=== PATIENT | male | born 1950 | race Caucasian/White ===

== ENCOUNTER 2019-06-02 11:36 | Emergency (ER) | payer OTHER ==
--- NOTE | 2019-06-02 12:33 | EDPHYS ---
Physician Documentation [facility] Name: Christian Cintron Age: 68 yrs Sex: Male : 1950 Arrival Date: 06/02/2019 Time: 11:38 Bed 10 Private MD: Wu Rm V ED Physician Elliot Nguyen HPI: 06/02 12:28 This 68 yrs old Male presents to ER via Ambulatory with complaints of Neck kb Problem. 12:28 The patient or guardian complains of pain. The symptoms are located on the right kb posterior aspect of neck. Onset: The symptoms/episode began/occurred 3 day(s) ago. Context: The problem was sustained at home, The neck injury/problem resulted from from unknown cause. Associated signs and symptoms: The patient has no apparent associated signs or symptoms, The patient denies any alcohol use. The patient is not apparently intoxicated. No neurological symptoms were experienced by the patient prior to arrival in the emergency department. The pain radiates to the right arm. Modifying factors: The symptoms are alleviated by nothing. the symptoms are aggravated by movement. Severity of symptoms: At their worst the symptoms were moderate, in the emergency department the symptoms are unchanged. The patient has experienced similar episodes in the past. The patient has not recently seen a physician. Pt reports he has a pinched nerve in neck that started 3 days ago. Reports he has had this multiple times and normally gets injections for it once a year by Dr Chavarria. Last injection was a year ago. Historical: - Allergies: 12:01 No Known Allergies; iw - Home Meds: 12:01 atorvastatin 80 mg oral tab once daily [Active]; iw - PMHx: 12:01 Hyperlipidemia; Hypertension; Diabetes - NIDDM; iw - PSHx: 12:01 Skin CA; iw ROS: 12:26 Constitutional: Negative for fever, chills, and weight loss, ENT: Negative for injury, kb pain, and discharge, Cardiovascular: Negative for chest pain, palpitations, and edema, Respiratory: Negative for shortness of breath, cough, wheezing, and pleuritic chest pain, Abdomen/GI: Negative for abdominal pain, nausea, vomiting, diarrhea, and constipation, Back: Negative for injury and pain, MS/Extremity: Negative for injury and deformity, Skin: Negative for injury, rash, and discoloration, Neuro: Negative for headache, weakness, numbness, tingling, and seizure. 12:26 Neck: Positive for pain with movement, pain at rest, tenderness, of the right posterior aspect of neck. Exam: 12:26 Constitutional: This is a well developed, well nourished patient who is awake, alert, kb and in no acute distress. Head/Face: Normocephalic, atraumatic. ENT: Nares patent. No nasal discharge, no septal abnormalities noted. Tympanic membranes are normal and external auditory canals are clear. Oropharynx with no redness, swelling, or masses, exudates, or evidence of obstruction, uvula midline. Mucous membranes moist. Chest/axilla: Normal chest wall appearance and motion. Nontender with no deformity. No lesions are appreciated. Cardiovascular: Regular rate and rhythm with a normal S1 and S2. No gallops, murmurs, or rubs. Normal PMI, no JVD. No pulse deficits. Respiratory: Lungs have equal breath sounds bilaterally, clear to auscultation and percussion. No rales, rhonchi or wheezes noted. No increased work of breathing, no retractions or nasal flaring. Abdomen/GI: Soft, non-tender, with normal bowel sounds. No distension or tympany. No guarding or rebound. No evidence of tenderness throughout. Back: No spinal tenderness. No costovertebral tenderness. Full range of motion. Skin: Warm, dry with normal turgor. Normal color with no rashes, no lesions, and no evidence of cellulitis. MS/ Extremity: Pulses equal, no cyanosis. Neurovascular intact. Full, normal range of motion. Neuro: Awake and alert, GCS 15, oriented to person, place, time, and situation. Cranial nerves II-XII grossly intact. Motor strength 5/5 in all extremities. Sensory grossly intact. Cerebellar exam normal. Normal gait. 12:26 Neck: External neck: tenderness, that is mild, of the right posterior aspect of neck, C-spine: appears grossly normal, ROM/movement: pain, that is mild, with any movement. Vital Signs: 12:01 BP 162 / 85; Pulse 76; Resp 16; Pulse Ox 94% on R/A; Weight 97.52 kg; Height 6 ft. 0 iw in. (182.88 cm); Pain 10/10; 12:01 Body Mass Index 29.16 (97.52 kg, 182.88 cm) MDM: 12:02 Patient medically screened. kb 12:27 Data reviewed: vital signs, nurses notes. Data interpreted: Pulse oximetry: on room air kb is 94 %. Interpretation: normal. Counseling: I had a detailed discussion with the patient and/or guardian regarding: the historical points, exam findings, and any diagnostic results supporting the discharge/admit diagnosis, the need for outpatient follow up, a family practitioner, to return to the emergency department if symptoms worsen or persist or if there are any questions or concerns that arise at home. Administered Medications: No medications were administered Disposition: 15:44 Co-signature as Attending Physician, Elliot Nguyen MD. rn Disposition: 06/02/19 12:32 Discharged to Home. Impression: Radiculopathy, cervical region. - Condition is Stable. - Discharge Instructions: Cervical Radiculopathy, [id number]. - Prescriptions for Cyclobenzaprine 10 mg Oral Tablet - take 1 tablet by ORAL route every 8 hours As needed; 21 tablet. Diclofenac Sodium 75 mg Oral Tablet, Delayed Release (E.C.) - take 1 tablet by ORAL route 2 times per day As needed; 30 tablet. - Medication Reconciliation Form, Thank You Letter, Antibiotic Education, Prescription Opioid Use form. - Follow up: Emergency Department; When: As needed; Reason: Worsening of condition. Follow up: Wu Rm MD; When: 2 - 3 days; Reason: Recheck today's complaints, Continuance of care, Re-evaluation by your physician. Signatures: Tesha Stark, PEREZ-C AUDIOVISUAL EQUIPMENT OPERATOR-Brienb Mercy De Leon RN RN iw Elliot Nguyen MD MD analysis internship: (The following items were deleted from the chart) 12:01 12:01 Home Meds: valsartan-hydrochlorothiazide 80-12.5 mg Oral tab 1 tab once daily; [facility] 12:31 12:28 Pt reports he has a pinched nerve in neck that started 3 days ago. Reports he has kb had this multiple times and normally gets injections for it once a year by Dr Chavarria.. kb 13:03 12:32 06/02/2019 12:32 Discharged to Home. Impression: Radiculopathy, cervical region. iw Condition is Stable. Forms are Medication Reconciliation Form, Thank You Letter, Antibiotic Education, Prescription Opioid Use. Follow up: Emergency Department; When: As needed; Reason: Worsening of condition. Follow up: Wu Rm; When: 2 - 3 days; Reason: Recheck today's complaints, Continuance of care, Re-evaluation by your physician. kb
--- NOTE | 2019-06-02 12:33 | ER ---
Nurse's Notes [facility] Name: Christian Cintron Age: 68 yrs Sex: Male : 1950 Arrival Date: 06/02/2019 Time: 11:38 Bed 10 Private MD: Wu Rm V Diagnosis: Radiculopathy, cervical region Presentation: 06/02 11:59 Presenting complaint: Patient states: pinched nerve in neck X 3 days, hx of pinched iw nerve, flared up. Transition of care: patient was not received from another setting of care. Onset of symptoms was May 30, 2019. Risk Assessment: Do you want to hurt yourself or someone else? Patient reports no desire to harm self or others. Initial Sepsis Screen: Does the patient meet any 2 criteria? No. Patient's initial sepsis screen is negative. Does the patient have a suspected source of infection? No. Patient's initial sepsis screen is negative. Care prior to arrival: None. 11:59 Method Of Arrival: Ambulatory iw 11:59 Acuity: BEATRIZ 4 iw Historical: - Allergies: 12:01 No Known Allergies; iw - Home Meds: 12:01 atorvastatin 80 mg oral tab once daily [Active]; iw - PMHx: 12:01 Hyperlipidemia; Hypertension; Diabetes - NIDDM; iw - PSHx: 12:01 Skin CA; iw Vital Signs: 12:01 BP 162 / 85; Pulse 76; Resp 16; Pulse Ox 94% on R/A; Weight 97.52 kg; Height 6 ft. 0 iw in. (182.88 cm); Pain 10/10; 12:01 Body Mass Index 29.16 (97.52 kg, 182.88 cm) iw ED Course: 11:38 Patient arrived in ED. mr 11:39 Wu Rm MD is Private Physician. mr 12:00 Triage completed. iw 12:00 Tesha Stark FNP-C is PHCP. kb 12:01 Elliot Nguyen MD is Attending Physician. kb 12:02 Mercy De Leon, SARAH is Primary Nurse. iw 12:02 Arm band placed on. iw 12:32 Wu Rm MD is Referral Physician. kb Administered Medications: No medications were administered Outcome: 12:32 Discharge ordered by . kb 13:03 Patient left the ED. iw Signatures: Tesha Stark, ADRIANNE TODD-Ivon Evans mr Mercy De Leon, RN RN iw Corrections: (The following items were deleted from the chart) 12:01 12:01 Home Meds: valsartan-hydrochlorothiazide 80-12.5 mg Oral tab 1 tab once daily; iw iw
[2019-06-02] MEDS ORDERED: METHYLPREDNISOLONE 125 MG INJ ONE (12:58)
[2019-06-02 13:51] VITALS: BP 162/85; O2SAT 94
== END 2019-06-02 13:03 | disposition home or self-care (01) ==
LOC: ER 11:36
DX: M54.12 Radiculopathy, cervical region (principal); E78.5 Hyperlipidemia, unspecified; Z85.828 Personal history of other malignant neoplasm of skin
CPT/HCPCS: 99281; J2930

== ENCOUNTER 2020-03-21 09:47 | Emergency (ER) | payer OTHER ==
--- OUTSIDE RECORDS SUMMARY | 2020-03-21 10:21 | XMS REPORT | Clinical Summary ---
:1950 Author Organization [facility] [employer] Address [address] [place] [id number] Care Team Providers Name Role Phone Wu Rm MD Primary Care Provider Allergies Not on File Medications Not on file Active Problems Not on file Social History Tobacco Use Types Packs/Day Years Used Date Never Assessed Sex Assigned at Date Recorded Not on file Job Start Date Occupation Industry Not on file Not on file Not on file Travel History Travel Start Travel End No recent travel history available. Last Filed Vital Signs Not on file Plan of Treatment Health Maintenance Due Date Last Done Comments COLONOSCOPY SCREENING 2000 SHINGLES VACCINES (#1) 2000 65+ PNEUMOCOCCAL VACCINE (1 of 2 - PCV13) 2015 INFLUENZA VACCINE 04/20/2020 Results Not on fileafter 03/21/2019 Advance Directives For more information, please contact: [phone] Type Date Recorded Patient Retail Attendant Explanati on Advance Directives, Living Will and Medical Power of Industrial Plant Custodian
--- OUTSIDE RECORDS SUMMARY | 2020-03-21 10:21 | XMS REPORT | Continuity of Care Document ---
:1950 Author Organization [facility] t Address [address] [place] [address] Care Team Providers Name Role Phone Sujey NEWBY Primary Care Physician Payers Payer Name Policy Type Policy Number Effective Date Expiration Date S ource Problems This patient has no known problems. Allergies, Adverse Reactions, Alerts Allergy Allergy Status Severity Reaction(s) Onset Inactive Treating Comm ents Source Name Type Date Date Clinician No Known DA Active U 2020-0 [facility] [place] [facility] No Known DA Active U 2020-0 [facility] [place] [facility] No Known DA Active U 2018-0 [facility] [place] [facility] Social History Social Habit Start Date Stop Date Quantity Comments Source Sex Assigned At Sidney Trujillo Medications This patient has no known medications. Procedures This patient has no known procedures. Plan of Care Planned Activity Planned Date Details Comments Source Future Scheduled 2020-04-20 INFLUENZA VACCINE [facility] 00:00:00 [code = INFLUENZA VACCINE] Future Scheduled 2015 65+ PNEUMOCOCCAL [place] [facility] 00:00:00 VACCINE (1 of 2 - PCV13) [code = 65+ PNEUMOCOCCAL VACCINE (1 of 2 - PCV13)] Future Scheduled 2000 COLONOSCOPY SCREENING [facility] 00:00:00 [code = COLONOSCOPY SCREENING] Future Scheduled 2000 SHINGLES VACCINES (#1) [facility] 00:00:00 [code = SHINGLES VACCINES (#1)] Encounters Start End Encounter Admission Attending Care Care Encounter Source Date/Time Date/Time Type Type Clinicians Facility Department ID 2019-06-11 2019-06-11 Outpatient BL MED [facility] 05:29:00 05:29:00 Results Test Description Test Time Test Comments Results Result [facility] e Comments - XR FLUORO FOR 2019-08-27 Patient Name: SPINE INJ 10:12:00 ADALBERTO COOL Unit No: [id number] EXAMS: CPT CODE: [id number] XR FLUORO FOR SPINE INJ 11849 LUMBAR TRANSFORAMINAL INJECTION REFERRING PHYSICIAN: PREOPERATIVE DIAGNOSIS: Degenerative Lumbar Disc Disease. POSTOPERATIVE DIAGNOSIS: Bilateral lumbar radiculopathy PROCEDURES PERFORMED 1. Fluoroscopically guided needle localization of the bilateral L4, bilateral L5 spinal nerve/nerves with transforaminal epidural steroid injection/injections. 2. Transforaminal epidurogram/epidurogram s at bilateral L4, bilateral L5. FINDINGS: Poor filling all. Concordant provocation bilateral L5 hips, left L4 back. Pain relief-100%. ANTIBIOTIC: Cefazolin ESTIMATED BLOOD LOSS: Minimal ANESTHESIA: (TIVA )Total intravenous anesthetic (patient intolerant to sedatives and hypnotics) COMPLICATIONS: None DETAILS OF PROCEDURE: After obtaining stable vital signs, informed consent and IV access, with no known contraindications to proceeding, the patient was taken to the fluoroscopy suite and placed in a prone position with all extremities padded and appropriate monitors placed. A sterile prep and drape was performed over the lumbosacral spine. Using fluoroscopic visualization at each level the insertion site was marked for a paravertebral approach to the foramen. Using standard technique, a 25 gauge needle was advanced to the base of the pedicle. In AP view, final positioning was obtained outside the 6 on the clock position on the pedicle. Then, 1 ml of Isovue-300 contrast was injected to produce the epidurograms. No paresthesias were elicited with needle insertion or injection and there were no signs of intravascular or intrathecal uptake. Then, with 1 ml of 4% lidocaine and 10 mg of triamcinolone was injected incrementally with frequent negative aspirations. There were no signs of intravascular or intrathecal uptake. Each subsequent level was done using the same technique and medications. The patient's vital signs remained stable. The patient was taken to the PACU in good condition. at 1012 Reported and signed by: Junior Chavarria M.D. [facility] NAME: ADALBERTO COOL [address] [facility] PHYS: Junior Lind MD [place] [address] : 1950 AGE: 68 SEX: M LOC: [facility] PHONE #: [phone] EXAM DATE: 08/27/2019 STATUS: [facility] FAX #: [phone] RAD #: D/C DT PAGE 1 Signed Report (CONTINUED) Patient Name: ADALBERTO COOL Unit No: [id number] EXAMS: CPT CODE: [id number] XR FLUORO FOR SPINE INJ 27187 <Continued> CC: Technologist: Tamiko Brennan(R) Transcribed D/ (1012) [facility] NAME: ADALBERTO COOL [address] [facility] PHYS: Junior Lind MD [place] [address] : 1950 AGE: 68 SEX: M LOC: [facility] PHONE #: [phone] EXAM DATE: 08/27/2019 STATUS: REG [facility] FAX #: [phone] RAD #: D/C DT PAGE 2 Signed Report Patient Name: ADALBERTO COOL Unit No: [id number] EXAMS: CPT CODE: [id number] XR FLUORO FOR SPINE INJ 31396 <Continued> Orig Print D/T: S: 08/27/2019 (1015) [facility] NAME: ADALBERTO COOL [address] [facility] PHYS: Junior Lind MD [place] [address] : 1950 AGE: 68 SEX: M LOC: [facility] PHONE #: [phone] EXAM DATE: 08/27/2019 STATUS: REG [facility] FAX #: [phone] RAD #: D/C DT PAGE 3 Signed Report GLUBED 2019-08-27 09:10:00 Test Item Value Reference Range Interpretation Comme nts GLUBED (test code = GLUBED) 93 mg/dL 60-125 N [id number] 06:51:00 Test Item Value Reference Range Interpretation Comments GLUBED (test code = GLUBED) 113 mg/dL 60-125 N - XR FLUORO FOR SPINE [id number] 10:42:00 Patient Name: ADALBERTO COOL Unit No: [id number] EXAMS: CPT CODE: [id number] XR FLUORO FOR SPINE INJ [id number] CERVICAL TRANSFORAMINAL INJECTION REFERRING PHYSICIAN:PREOPERATIVE DIAGNOSIS: Cervical radiculitis POSTOPERATIVE DIAGNOSIS: Bilateral cervical radiculopathy PROCEDURES PERFORMED: Fluoroscopically guided needle localization of the bilateral C4, bilateral C5 spinal nerves with transforaminal epiduralsteroid injection/injections. 2. Transforaminal epidurogram/epidurograms at bilateral C4, bilateral C5 FINDINGS: Poor filling bilateral C5, bilateral C4. Concordant provocation right C4 neck. Pain relief-100%. Consider bilateral C3-4 and C4-5 facet block ANTIBIOTICS:Cefazolin ESTIMATED BLOOD LOSS: Minimal ANESTHESIA: (TIVA ) Total intravenous anesthetic (patient intolerant to sedatives and hypnotics) COMPLICATIONS: None DETAILS OF PROCEDURE: After obtaining stable vital signs, informed consent and IV access, with no known contraindications to proceeding, the patient was taken to the fluoroscopy suite and placed in a supine position with all ex tremities padded and appropriate monitors placed. A sterile prep and drape was performed over the cervical spine. Using fluoroscopic visualization at each level the insertion site was marked for a paravertebral approach to the foramen. Using standard technique, a 27gauge needle was advanced to the base of the pedicle. In AP view, final positioning was obtained outside the 6 on a clock position on the pedicle. Then, 0.5 ml of Isovue-300 contrast was injected to produce the epidurograms. No paresthesias were elicited with needle insertion or inje ction and there were no signs of intravascular or intrathecal uptake. Then, 0.5 ml of 4% lidocaine was injected as a test dose with no signs of intravascular or intrathecal uptake. Next, 10 mg of Decadron was injected incrementally with frequent negative aspirations.Each subsequent cervical nerve root sleeve was done with the same technique and medications were used.There were no signs of intravascular or intrathecal uptake. The patient's vital signs remained stable. The patient was taken to the PACU in good condition. [facility] NAME: ADALBERTO COOL [address] [facility] PHYS: Junior Lind MD [place] [address] : 1950 AGE: 68 SEX: M LOC: [facility] PHONE #: [phone] EXAM DATE: 08/06/2019 STATUS: [facility] FAX #: [phone] RAD #: D/C DT PAGE 1 Signed Report (CONTINUED) Patient Name: ADALBERTO COOL Unit No: [id number] EXAMS: CPT CODE: [id number] XR FLUORO FOR SPINE INJ 36401 <Continued> [id number] Reported and signed by: Junior Chavarria M.D. CC: Technologist: Tamiko Brennan(R) Transcribed D/ (1042) [facility] NAME: ADALBERTO COOL [address] [facility] PHYS: Junior Lind MD [place] [address] : 1950 AGE: 68 SEX: M LOC: [facility] PHONE #: [phone] EXAM DATE: 08/06/2019 STATUS: [facility] FAX #: [phone] RAD #: D/C DT PAGE 2 Signed Report Patient Name: ADALBERTO COOL Unit No: [id number] EXAMS: CPT CODE: [id number] XR FLUORO FOR SPINE INJ 97445 <Continued> Orig Print D/T: S: 08/06/2019 (1045) [facility] NAME: ADALBERTO COOL [address] [facility] PHYS: Junior Lind MD [place] [address] : 1950 AGE: 68 SEX: M LOC: [facility] PHONE #: [phone] DATE: 08/06/2019 STATUS: REG [place] FAX #: [phone] RAD #: D/C DT PAGE 3 Signed ReportGLUBED 2019-08-06 09:55:00 Test Item Value Reference Range Interpretation Comments GLUBED (test code = GLUBED) 126 mg/dL 60-125 H [id number] 08:53:00 Test Item Value Reference Range Interpretation Comments GLUBED (test code = GLUBED) 134 mg/dL 60-125 H
--- NOTE | 2020-03-21 10:45 | RAD REPORT ---
EXAM DESCRIPTION: CT - [id number] - 03/21/2020 10:26 am CLINICAL HISTORY: right arm pain, head and neck pain COMPARISON: No comparisons TECHNIQUE: Axial 5 mm thick images of the head were obtained. Axial 2 mm thick images of the cervic al spine were obtained with sagittal and coronal reconstruction images generated and reviewed. All CT scans are performed using dose optimization technique as appropriate and may include automated exposure control or mA/KV adjustment according to patient size. FINDINGS: No intracranial hemorrhage, mass, edema or acute intracranial finding. No suspicion for ac gino infarction. No extra-axial fluid collections. Mastoid air cells and paranasal sinuses are clear. No globe or orbit abnormality seen. Cervical body height and alignment are normal. Minimal C5-6 and moderate C6-7 disc space narrowing. N o fracture or acute bony abnormality. Facet joint degenerative changes are present. This is most pron ounced at L3-4 where there is fusion of the facet joints. There may be fusion at the uncovertebral janett int as well. Moderate right-sided and [id number]-[id number] left-sided foraminal stenosis present. Facet j oint degenerative changes are more mild elsewhere in the cervical spine. Central canal detail is inhe rently limited. No paraspinal mass or hematoma. IMPRESSION: Negative CT head examination for acute or significant finding. Cervical spine degenerative change as detailed. No acute finding identified.
--- NOTE | 2020-03-21 11:00 | ER ---
Nurse's Notes [facility] Name: Christian Cintron Age: 69 yrs Sex: Male : 1950 Arrival Date: 03/21/2020 Time: 09:49 Bed 15 Private MD: Wu Rm V Diagnosis: Radiculopathy, cervical region Presentation: 03/21 10:01 Chief complaint: Patient states: right arm pain that began 2 days ago. Pt denies aa5 numbness/tingling to right arm. Denies known injury. 10:01 Coronavirus screen: Client denies travel out of the [place] in the last 14 days. At this aa5 time, the client does not indicate any symptoms associated with coronavirus-19. Ebola Screen: Patient negative for fever greater than or equal to 101.5 degrees Fahrenheit, and additional compatible Ebola Virus Disease symptoms. Initial Sepsis Screen: Does the patient meet any 2 criteria? No. Patient's initial sepsis screen is negative. Does the patient have a suspected source of infection? No. Patient's initial sepsis screen is negative. Risk Assessment: Do you want to hurt yourself or someone else? Patient reports no desire to harm self or others. Onset of symptoms was March 19, 2020. 10:01 Method Of Arrival: Ambulatory aa5 10:01 Acuity: BEATRIZ 3 aa5 Historical: - Allergies: 10:02 No Known Allergies; aa5 - Home Meds: 10:02 Eliquis 5 mg oral tab [Active]; metformin 500 mg Oral tab [Active]; atorvastatin 80 mg aa5 oral tab [Active]; losartan 25 mg oral tab [Active]; - PMHx: 10:02 Diabetes - NIDDM; Hyperlipidemia; Hypertension; Atrial Fib; aa5 - PSHx: 10:02 Skin CA; aa5 - Immunization history:: Adult Immunizations unknown. - Social history:: Smoking status: Patient/guardian denies using tobacco, but has a distant history of tobacco abuse. - Family history:: not pertinent. - Hospitalizations: : No recent hospitalization is reported. Screenin:10 Abuse screen: Denies threats or abuse. Denies injuries from another. Nutritional jr10 screening: No deficits noted. Tuberculosis screening: No symptoms or risk factors identified. Fall Risk None identified. Assessment: 10:10 General: Appears in no apparent distress. Behavior is calm, cooperative, appropriate jr10 for age. Pain: Complains of pain in right bicep and right tricep Pain does not radiate. Pain currently is 5 out of 10 on a pain scale. Quality of pain is described as sharp, Pain began 2-3 days ago. Alleviated by nothing. Aggravated by increased activity. Neuro: No deficits noted. Level of Consciousness is awake, alert, obeys commands, Oriented to person, place, time, situation, Appropriate for age [employer] Jammer are equal bilaterally Moves all extremities. Gait is steady, Speech is normal, Facial symmetry appears normal, Intact Denies weakness blurred vision dizziness, paresthesias numbness headache. Cardiovascular: No deficits noted. Respiratory: No deficits noted. GI: No deficits noted. No signs and/or symptoms were reported involving the gastrointestinal system. : No deficits noted. No signs and/or symptoms were reported regarding the genitourinary system. EENT: No deficits noted. No signs and/or symptoms were reported regarding the EENT system. Derm: No deficits noted. No signs and/or symptoms reported regarding the dermatologic system. Musculoskeletal: No deficits noted. No signs and/or symptoms reported regarding the musculoskeletal system. Vital Signs: 10:01 BP 159 / 93; Pulse 86; Resp 18 S; Temp 98.3(O); Pulse Ox 93% on R/A; Weight 90.72 kg aa5 (R); Height 6 ft. 0 in. (182.88 cm) (R); Pain 9/10; 11:38 BP 149 / 89; Pulse 91; Resp 20; Pulse Ox 95% on R/A; Pain 5/10; jr10 10:01 Body Mass Index 27.12 (90.72 kg, 182.88 cm) aa5 ED Course: 09:49 Patient arrived in ED. ag5 09:49 Wu Rm MD is Private Physician. ag5 09:50 Elliot Nguyen MD is Attending Physician. rn 10:01 Arm band placed on. aa5 10:09 Dinorah Roberts, SARAH is Primary Nurse. jr10 10:10 Patient has correct armband on for positive identification. Bed in low position. Call jr10 light in reach. Pulse ox on. NIBP on. 10:15 Triage completed. aa5 10:26 CT Head C Spine In Process Unspecified. EDMS 10:34 No provider procedures requiring assistance completed. Patient did not have IV access jr10 during this emergency room visit. Administered Medications: 11:14 Drug: Decadron 10 mg Route: IM; Site: left gluteus; jr10 11:37 Follow up: Response: No adverse reaction jr10 11:14 Drug: TORadol 30 mg Route: IM; Site: right gluteus; jr10 11:37 Follow up: Response: No adverse reaction jr10 Outcome: 10:59 Discharge ordered by . rn 11:37 Discharged to home ambulatory. jr10 11:37 Condition: good 11:37 Discharge instructions given to patient, Instructed on discharge instructions, follow up and referral plans. Demonstrated understanding of instructions, follow-up care, medications, Prescriptions given X 3. 11:38 Patient left the ED. jr10 Signatures: Dispatcher [employer] EDMS Elliot Nguyen MD MD rn Calderon, Audri, RN RN [email or web address] Mushtaq Rome Dinorah Merlos RN RN jr10 Corrections: (The following items were deleted from the chart) 10:15 10:01 Acuity: BEATRIZ 4 aa5 aa5
--- NOTE | 2020-03-21 11:00 | EDPHYS ---
Physician Documentation [facility] Name: Christian Cintron Age: 69 yrs Sex: Male : 1950 Arrival Date: 03/21/2020 Time: 09:49 Bed 15 Private MD: Wu Rm V ED Physician Elliot Nguyen HPI: 03/21 10:11 This 69 yrs old Male presents to ER via Unassigned with complaints of Arm rn Pain. 10:11 The patient or guardian complains of pain. The complaints affect the anterior aspect of rn right shoulder and right bicep. Onset: The symptoms/episode began/occurred 2 day(s) ago. Modifying factors: The symptoms are alleviated by heat, remaining still, the symptoms are aggravated by movement. Severity of symptoms: At their worst the symptoms were mild, in the emergency department the symptoms are unchanged. The patient has experienced a previous episode. The patient has not recently seen a physician. Reports right arm pain for 2 days, no injury/fever/weakness, + history of pinched nerve in neck, feels similar but also different. Reports improved with heat to shoulder but has not resolved. No recent increase in activity with that arm. No chest pain/sob/abd pain/vomiting/diaphoresis. . Historical: - Allergies: 10:02 No Known Allergies; aa5 - Home Meds: 10:02 Eliquis 5 mg oral tab [Active]; metformin 500 mg Oral tab [Active]; atorvastatin 80 mg aa5 oral tab [Active]; losartan 25 mg oral tab [Active]; - PMHx: 10:02 Diabetes - NIDDM; Hyperlipidemia; Hypertension; Atrial Fib; aa5 - PSHx: 10:02 Skin CA; aa5 - Immunization history:: Adult Immunizations unknown. - Social history:: Smoking status: Patient/guardian denies using tobacco, but has a distant history of tobacco abuse. - Family history:: not pertinent. - Hospitalizations: : No recent hospitalization is reported. ROS: 10:11 Constitutional: Negative for fever, chills, and weight loss, ENT: Negative for injury, rn pain, and discharge, Neck: Negative for injury, pain, and swelling, Cardiovascular: Negative for chest pain, palpitations, and edema, Respiratory: Negative for shortness of breath, wheezing, and pleuritic chest pain, Abdomen/GI: Negative for abdominal pain, nausea, vomiting, diarrhea, and constipation, Back: Negative for injury and pain, MS/Extremity: Negative for injury and deformity, Skin: Negative for injury, rash, and discoloration, Neuro: Negative for headache, weakness, numbness, tingling, and seizure. Exam: 10:11 Constitutional: This is a well developed, well nourished patient who is awake, alert, rn and in no acute distress. Ambulatory to room. Head/Face: Normocephalic, atraumatic. Neck: Trachea midline, no masses palpated, and no cervical lymphadenopathy. Supple, full range of motion without nuchal rigidity, or vertebral point tenderness. No Meningismus. Cardiovascular: Regular rate and rhythm. No pulse deficits. Respiratory: No increased work of breathing, no retractions or nasal flaring. Abdomen/GI: Soft, non-tender MS/ Extremity: Pulses equal, no cyanosis. Neurovascular intact. Full, normal range of motion. Equal circumference. Neuro: Awake and alert, GCS 15, oriented to person, place, time, and situation. Cranial nerves II-XII grossly intact. Motor strength 5/5 in all extremities. Sensory grossly intact. Cerebellar exam normal. Normal gait. Vital Signs: 10:01 BP 159 / 93; Pulse 86; Resp 18 S; Temp 98.3(O); Pulse Ox 93% on R/A; Weight 90.72 kg aa5 (R); Height 6 ft. 0 in. (182.88 cm) (R); Pain 9/10; 11:38 BP 149 / 89; Pulse 91; Resp 20; Pulse Ox 95% on R/A; Pain 5/10; jr10 10:01 Body Mass Index 27.12 (90.72 kg, 182.88 cm) aa5 MDM: 09:50 Patient medically screened. rn 10:59 Differential diagnosis: tendonitis, radiculopathy, referred pain. Data reviewed: vital rn signs, nurses notes, EKG, radiologic studies, CT scan, and as a result, I will discharge patient. Counseling: I had a detailed discussion with the patient and/or guardian regarding: the historical points, exam findings, and any diagnostic results supporting the discharge/admit diagnosis, radiology results, the need for outpatient follow up, to return to the emergency department if symptoms worsen or persist or if there are any questions or concerns that arise at home. Special discussion: I discussed with the patient/guardian in detail that at this point there is no indication for admission to the hospital. It is understood, however, that if the symptoms persist or worsen the patient needs to return immediately for re-evaluation. 03/21 10:15 Order name: CT Head C Spine; Complete Time: 10:46 rn 03/21 10:11 Order name: EKG; Complete Time: 10:11 rn 03/21 10:11 Order name: EKG - Nurse/Tech; Complete Time: 10:32 rn Administered Medications: 11:14 Drug: Decadron 10 mg Route: IM; Site: left gluteus; jr10 11:37 Follow up: Response: No adverse reaction jr10 11:14 Drug: TORadol 30 mg Route: IM; Site: right gluteus; jr10 11:37 Follow up: Response: No adverse reaction jr10 Disposition: 03/21/20 10:59 Discharged to Home. Impression: Radiculopathy, cervical region. - Condition is Stable. - Discharge Instructions: Cervical Radiculopathy. - Prescriptions for Ultram 50 mg Oral Tablet - take 1 tablet by ORAL route every 6 hours As needed; 15 tablet. Cyclobenzaprine 10 mg Oral Tablet - take 1 tablet by ORAL route every 8 hours As needed; 15 tablet. Medrol (Hossein) 4 mg Oral Tablets, Dose Pack - take 1 tablet by ORAL route as directed - follow package instructions; 1 packet. - Medication Reconciliation Form, Thank You Letter, Antibiotic Education, Prescription Opioid Use form. - Follow up: Private Physician; When: As needed; Reason: Recheck today's complaints, Re-evaluation by your physician. - Problem is new. - Symptoms have improved. Signatures: Dispatcher [employer] EDMS Elliot Nguyen MD MD rn Calderon, Audri, RN RN aa5 Dinorah Roberts RN RN jr10 Corrections: (The following items were deleted from the chart) 10:13 10:11 Constitutional: Negative for fever, chills, and weight loss, ENT: Negative for rn injury, pain, and discharge, Neck: Negative for injury, pain, and swelling, Cardiovascular: Negative for chest pain, palpitations, and edema, Respiratory: Negative for shortness of breath, cough, wheezing, and pleuritic chest pain, Abdomen/GI: Negative for abdominal pain, nausea, vomiting, diarrhea, and constipation, Back: Negative for injury and pain, MS/Extremity: Negative for injury and deformity, Skin: Negative for injury, rash, and discoloration, Neuro: Negative for headache, weakness, numbness, tingling, and seizure, rn 11:38 10:59 03/21/2020 10:59 Discharged to Home. Impression: Radiculopathy, cervical region. jr10 Condition is Stable. Forms are Medication Reconciliation Form, Thank You Letter, Antibiotic Education, Prescription Opioid Use. Follow up: Private Physician; When: As needed; Reason: Recheck today's complaints, Re-evaluation by your physician. Problem is new. Symptoms have improved. rn
[2020-03-21] MEDS ORDERED: KETOROLAC 30 MG/ML INJ ONE (11:12)
[2020-03-21] MEDS ORDERED: dexAMETHasone 10 MG/ML VIAL ONE (11:12)
--- NOTE | 2020-03-22 12:27 | EKG ---
Test Date: 2020-03-21 Test Time: 10:17:36 Design Draftsman: VINH MEASUREMENT RESULTS: Intervals: Rate: 86 SD: 208 QRSD: 130 QT: 398 QTc: 476 [place]: P: 72 SD: 208 QRS: 116 T: 12 INTERPRETIVE STATEMENTS: Sinus rhythm with occasional and consecutive premature ventricular complexes Right bundle branch block Abnormal ECG No previous ECG available for comparison Electronically Signed On 03-22-20 12:23:04 CDT by Ralph Gruber
[2020-03-23 19:15] VITALS: TEMP 98.3
[2020-03-23 19:17] VITALS: BP 149/89; O2SAT 95
== END 2020-03-21 11:38 | disposition home or self-care (01) ==
LOC: ER 09:47
DX: M54.12 Radiculopathy, cervical region (principal); E11.9 Type 2 diabetes mellitus without complications; I10 Essential (primary) hypertension; E78.5 Hyperlipidemia, unspecified; I48.91 Unspecified atrial fibrillation
CPT/HCPCS: 93005; 70450; 72125; 96372; 99284; J1100

== ENCOUNTER 2020-09-29 09:29 | Observation (INO) | payer OTHER ==
--- OUTSIDE RECORDS SUMMARY | 2020-09-29 09:32 | XMS REPORT | Continuity of Care Document ---
:1950 Author Organization [facility] t Address [address] [place] [address] Care Team Providers Name Role Phone Unavailable Unavailable Unavailable Payers Payer Name Policy Type Policy Number Effective Date Expiration Date S ource Problems This patient has no known problems. Allergies, Adverse Reactions, Alerts Allergy Allergy Status Severity Reaction(s) Onset Inactive Treating Comm ents Source Name Type Date Date Clinician No Known DA Active U 2020-0 [facility] [place] [facility] No Known DA Active U 2020-0 [facility] [place] [facility] No Known DA Active U 2020-0 [facility] 1-17 [place] [facility] No Known DA Active U 2020-0 [facility] 1-16 [place] [facility] No Known DA Active U 2018-0 [facility] 6-14 [place] [facility] Medications This patient has no known medications. Procedures This patient has no known procedures. Encounters Start End Encounter Admission Attending Care Care Encounter Source Date/Time Date/Time Type Type Clinicians Facility Department ID 2019-06-11 2019-06-11 Outpatient [facility] 05:29:00 05:29:00 Results Test Description Test Time Test Comments Results Result Comments Source GLUBED 2020-04-25 10:57:00 Test Item Value Reference Range Interpretation Comme nts GLUBED (test code = GLUBED) 126 mg/dL 60-125 H - XR FLUORO FOR SPINE [id number] 09:05:00 Patient Name: ADALBERTO COOL Unit No: [id number] EXAMS: CPT CODE: [id number] XR FLUORO FOR SPINE INJ 21069 CERVICAL TRANSFORAMINAL INJECTION REFERRING PHYSICIAN:PREOPERATIVE DIAGNOSIS: Cervical radiculitis POSTOPERATIVE DIAGNOSIS: Cervical radiculopathy PROCEDURES PERFORMED: Fluoroscopically guided needle localization of the right C7, right C6 spinal nerves with transforaminal epidural steroid injection/injections. 2. Transforaminal epidurogram/epidurograms at right C7, right C6 FINDINGS: Poor filling right C7, right C6. Concordant provocation right C7 arm. Pain relief-100%. ANTIBIOTICS:Cefazolin ESTIMATED BLOOD LOSS: Minimal ANESTHESIA: (TIVA ) Total intravenous anesthetic (patient intolerant to sedatives and hypnotics) COMPLICATIONS: None DETAILS OF PROCEDURE: After obtaining stable vital signs, informed consent and IV access, with no known contraindications to proceeding, the patient was taken to the fluoroscopy suite and placed in a supine position with all extremities padded and appropriate [...] taken to the PACU in good condition. [facility] NAME: ADALBERTO COOL [address] [facility] HYS: COOPER - DoctorJunior MD [place], [place] [address] : 1950 AGE: 69 SEX: M LOC: BrittanyDarenYURIDIA PHONE #: [phone] EXAM DATE: 04/19/2020 STATUS: [facility] FAX #: [phone] RAD #: D/C DT PAGE 1 Signed Report(CONTINUED) Patient Name: ADALBERTO COOL Unit No: [id number] EXAMS: CPT CODE: [id number] XR FLUORO FOR SPINE INJ 98578 <Continued> at 0905 Reported and signed by: Junior Chavarria M.D. CC: Technologist: Tamiko Brennan(R) Transcribed D/ (904) Shayan [facility] NAME: ADALBERTO COOL [address] [facility] PHYS: Junior Lind MD [place] [address] : 1950 AGE: 69 SEX: M LOC: CEZAR PHONE #: [phone] EXAM DATE: 04/19/2020 STATUS: [facility] FAX #: [phone] RAD #: D/C DT PAGE 2 Signed Report Patient Name: ADALBERTO COOL Unit No: [id number] EXAMS: CPT CODE: [id number] XR FLUORO FOR SPINE INJ [id number] <Continued> Orig Print D/T: S: 04/19/2020 (908) [facility] NAME: ADALBERTO COOL [address] [facility] PHYS: Junior Lind MD [place] [address] : 1950 AGE: 69 SEX: M LOC: CEZAR PHONE #: [phone] EXAM DATE: 04/19/2020 STATUS: [facility] FAX #: [phone] RAD #: D/C DT PAGE 3 Signed [id number] 08:53:00 Test Item Value Reference Range Interpretation Comments GLUBED (test code = GLUBED) 109 mg/dL 60-125 N - XR FLUORO FOR SPINE [id number] 10:12:00 Patient Name: ADALBERTO COOL Unit No: [id number] EXAMS: CPT CODE: [id number] XR FLUORO FOR SPINE INJ 28196 LUMBAR TRANSFORAMINAL INJECTION REFERRING PHYSICIAN: PREOPERATIVE DIAGNOSIS: Degenerative Lumbar Disc Disease. POSTOPERATIVE DIAGNOSIS: Bilateral lumbar radiculopathy PROCEDURES PERFORMED 1. Fluoroscopically guided needlelocalization of the bilateral L4, bilateral L5 spinal nerve/nerves with transforaminal epidural steroid injection/injections. 2. Transforaminal epidurogram/epidurograms at bilateral L4, bilateral L5. FINDINGS: Poor filling all. Concordant provocation bilateral L5 hips, left L4 back. Pain relief-100%. ANTIBIOTIC: Cefazolin ESTIMATED BLOOD LOSS: Minimal ANESTHESIA: (TIVA )Total intravenous anesthetic (patient intolerant to sedatives and hypnotics) COMPLICATIONS: None DETAILS OF PROCEDURE: After obtaining stable vital signs, informed consent and IV access, with noknown contraindications to proceeding, the patient was taken [...] advanced to the base of the pedicle. InAP view, final positioning was obtained outside the [...] done using the same technique and medications. Thepatient's vital signs remained stable. The patient was taken to the PACU in good condition. at 1012 Reported and signed by: Junior Chavarria M.D. [facility] NAME: ADALBERTO COOL [address] [facility] PHYS: DOCUD - DoctorJunior MD [place], [place] [address] : 1950 AGE: 68 SEX: M LOC: CEZAR PHONE #: [phone] EXAM DATE: 08/27/2019 STATUS: [facility] FAX #: [phone] RAD #: D/C DT PAGE 1 Signed Report (CONTINUED) Patient Name: JOANN COOL Unit No: [id number] EXAMS: CPT CODE: [id number] XR FLUORO FOR SPINE INJ 36799 <Continued> CC: Technologist: Tamiko Brennan(R) Transcribed D/ (1012) HermiloD [facility] NAME: ADALBERTO COOL [address] [facility] PHYS: Junior Lind MD [place] [address] : 1950 AGE: 68 SEX: M LOC: CEZAR PHONE #: [phone] EXAM DATE: 08/27/2019 STATUS: [facility] FAX #: [phone] RAD #: D/C DT PAGE 2 Signed Report Patient Name: ADALBERTO COOL Unit No: [id number] EXAMS: CPT CODE: [id number] XR FLUORO FOR SPINE INJ 89425 <Continued> Orig Print D/T: S: 08/27/2019 (101)[facility] NAME: ADALBERTO COOL [address] [facility] PHYS: Junior Lind MD [place] [address] : 1950GE: 68 SEX: M LOC: CEZAR PHONE #: [phone] EXAM DATE: 08/27/2019 STATUS: [facility] FAX #: [phone] RAD #: D/C DT PAGE 3 Signed [id number] 09:10:00 Test Item Value Reference Range Interpretation Comments GLUBED (test code = GLUBED) 93 mg/dL 60-125 N [id number] 06:51:00 Test Item Value Reference Range Interpretation Comments GLUBED (test code = GLUBED) 113 mg/dL 60-125 N - XR FLUORO FOR SPINE [id number] 10:42:00 Patient Name: ADALBERTO COOL Unit No: [id number] EXAMS: CPT CODE: [id number] XR FLUORO FOR SPINE INJ 38716 CERVICAL TRANSFORAMINAL INJECTION REFERRING PHYSICIAN:PREOPERATIVE DIAGNOSIS: Cervical [...] taken to the PACU in good condition. [facility] NAME: ADALBERTO COOL [address] [facility] PHYS: DOCUD - Doctor,Junior Hazel MD [place], [place] [address] : 1950 AGE: 68 SEX: M LOC: CEZAR PHONE #: [phone] EXAM DATE: 08/06/2019 STATUS: [facility] FAX #: [phone] RAD #: D/C DT PAGE 1 Signed Report (CONTINUED) Patient Name: ADALBERTO COOL Unit No: [id number] EXAMS: CPT CODE: [id number] XR FLUORO FOR SPINE INJ 40095 <Continued> [id number] Reported and signed by: Junior Chavarria M.D. CC: Technologist: Tamiko Brennan(R) Transcribed D/ (1046) Shayan [facility] NAME: ADALBERTO COOL [address] [facility] PHYS: Junior Lind MD [place] [address] : 1950 AGE: 68 SEX: M LOC: CEZAR PHONE #: [phone] EXAM DATE: 08/06/2019 STATUS: REG [employer] FAX #: [phone] RAD #: D/C DT PAGE 2 Signed Report Patient Name: ADALBERTO COOL Unit No: [id number] EXAMS: CPT CODE: [id number] XR FLUORO FOR SPINE INJ 29885 <Continued> Orig Print D/T: S: 08/06/2019 (1041) [facility] NAME: ADALBERTO COOL [address] [facility] PHYS: Junior Lind MD [place] [address] : 1950 AGE: 68 SEX: M LOC: ECZAR PHONE #: [phone] DATE: 08/06/2019 STATUS: REG [facility] FAX #: [phone] RAD #: D/C DT PAGE 3 Signed ReportGLUBED 2019-08-06 09:55:00 Test Item Value Reference Range Interpretation Comments GLUBED (test code = GLUBED) 126 mg/dL 60-125 H [id number] 08:53:00 Test Item Value Reference Range Interpretation Comments GLUBED (test code = GLUBED) 134 mg/dL 60-125 H
--- NOTE | 2020-09-29 15:02 | ER ---
Nurse's Notes [facility] Name: Christian Cintron Age: 70 yrs Sex: Male : 1950 Arrival Date: 09/29/2020 Time: :31 Bed Waiting Private MD: Wu Rm V Diagnosis: Chronic obstructive pulmonary disease, unspecified Presentation: 09/29 09:31 Chief complaint: Direct Admit from Dr. Rm for hypoxia, dyspnea, cough, COPD. aa5 09: Coronavirus screen: cough unrelated to allergies, shortness of breath. Ebola Screen: aa5 Patient negative for fever greater than or equal to 101.5 degrees Fahrenheit, and additional compatible Ebola Virus Disease symptoms. Initial Sepsis Screen: Does the patient meet any 2 criteria? No. Patient's initial sepsis screen is negative. Does the patient have a suspected source of infection? No. Patient's initial sepsis screen is negative. Risk Assessment: Do you want to hurt yourself or someone else? Patient reports no desire to harm self or others. Onset of symptoms was September 2020. 09:31 Acuity: BEATRIZ 3 aa5 09:31 Method Of Arrival: Ambulatory aa5 Historical: - Allergies: 09:44 No Known Allergies; aa5 - Home Meds: 09:45 atorvastatin 80 mg Oral tab once daily [Active]; metformin 500 mg Oral tab [Active]; aa5 Eliquis 5 mg Oral tab [Active]; atorvastatin 80 mg Oral tab [Active]; losartan 25 mg Oral tab [Active]; - PMHx: 09:44 Atrial Fib; Diabetes - NIDDM; Hyperlipidemia; Hypertension; aa5 - PSHx: 09:44 Skin CA; aa5 - Immunization history:: Client reports receiving the 2nd dose of the Covid vaccine, Flu vaccine is up to date. - Social history:: Smoking status: Patient denies any tobacco usage or history of. 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 13:30 Reassessment: Joellen Castelan RN states that she will soon assign room assignment for ss patient. Vital Signs: :31 BP 128 / 79; Pulse 84; Resp 20 S; Temp 98.3(O); Pulse Ox 81% on R/A; Weight 90.26 kg aa5 (R); Height 6 ft. 0 in. (182.88 cm) (R); 09:33 Pulse Ox 95% on 2 lpm NC; aa5 09:31 Body Mass Index 26.99 (90.26 kg, 182.88 cm) aa5 ED Course: 09:31 Patient arrived in ED. mr 09:31 Arm band placed on. aa5 09:32 Wu Rm MD is Private Physician. mr 09:39 Jon Rodriges MD is Attending Physician. tw4 09:47 Triage completed. aa5 15:00 Wu Rm MD is Hospitalizing Provider. ss Administered Medications: No medications were administered Outcome: 15:01 Decision to Hospitalize by Provider. ss 15:01 Patient left the ED. ss Signatures: Ivon Roberts LeónDenisse, RN RN aa5 Marlene Carvajal RN RN ss Jon Rodriges MD MD tw4
[2020-09-29] MEDS ORDERED: ALBUTEROL 2.5 MG/3 ML NEB SOL IH PRN (15:16)
[2020-09-29] MEDS ORDERED: GLUCAGON 1 MG/VIAL IM PRN (15:41)
[2020-09-29] MEDS ORDERED: D50W 25 GM/50 ML VIAL IV PRN (15:49)
[2020-09-29] MEDS ORDERED: POLYETHYL GLY 3350 17 GM/DOSE PO PRN (16:00)
[2020-09-29] MEDS ORDERED: LOPERAMIDE HCL 2 MG CAPSULE PO PRN (16:00)
[2020-09-29] MEDS ORDERED: NACHLORIDE 0.45% 1,000 ML IV SCH (16:00)
[2020-09-29] MEDS ORDERED: ONDANSETRON 4 MG (ODT) TAB PO PRN (16:00)
[2020-09-29] MEDS ORDERED: ACETAMINOPHEN 325 MG TABLET PO PRN (16:00)
[2020-09-29] MEDS ORDERED: DIPHENHYDRAMINE 25 MG TAB/CAP PO PRN (16:00)
[2020-09-29] MEDS ORDERED: PNEUMOCOCCAL VACCINE 0.5 ML IMVAC ONE (16:00)
[2020-09-29] MEDS ORDERED: ONDANSETRON 4 MG/2 ML VIAL IV PRN (16:00)
[2020-09-29] MEDS ORDERED: INFLUENZA VACCINE (for 3y+) 0.5 ML DOSE IMVAC ONE (16:00)
[2020-09-29 16:27] VITALS: BMI 27.0
[2020-09-29] MEDS: INSULIN -REGULAR HUMAN 50 UNIT/0.5 ML ML SQ SCH ×2 (16:30→20:54)
[2020-09-29 16:36] LABS: Protime INR 1.61
[2020-09-29] MEDS: AZITHROMYCIN IV 500 MG in NA CHLORIDE 0.9% 250 ML IVPB SCH (17:00)
[2020-09-29 17:25] LABS: Albumin 4.5 g/dL (3.4-5.0); Bilirubin Direct 0.2 mg/dL (0-0.2); Bilirubin Total 0.8 mg/dL (0.2-1.0); C-Reactive Protein 20.3 mg/L (<3.00); Phosphorus 4.1 mg/dL (2.5-4.9); Protein, Total 9.2 g/dL (6.4-8.2); Thyroid Stimulating Hormone 1.15 uIU/mL (0.360-3.740)
[2020-09-29] MEDS: METHYLPREDNISOLONE 40 MG INJ IV SCH (18:00)
[2020-09-29 18:11] LABS: Basophils % 0.4 % (0-1.3); Hematocrit 43.1 % (39.6-49.0); Lymphocytes % 11.7 % (15.3-44.8); MPV 8.4 fL (7.6-11.3); RBC Red Blood Cell Count 4.68 M/uL (4.33-5.43)
[2020-09-29] MEDS: IPRATROPIUM BROM 0.5MG/2.5ML IH SCH (19:10)
[2020-09-29] MEDS: LEVALBUTEROL 1.25 MG/3 ML NEB IH SCH (19:10)
[2020-09-29 19:18] LABS: Potassium 3.9 mmol/L (3.5-5.1)
--- NOTE | 2020-09-29 20:47 | RAD REPORT ---
EXAM DESCRIPTION: CT - Chest Angio - 09/29/2020 8:29 pm CLINICAL HISTORY: Shortness of breath COMPARISON: None. TECHNIQUE: Dynamically enhanced axial 3 mm thick images of the chest were obtained during administra tion of <100> mL Isovue 370 IV contrast. Coronal and oblique reconstruction images were generated and reviewed. Exam utilizes a protocol for optimal evaluation of pulmonary arterial tree. Maximum intensity projections 3D imaging was utilized All CT scans are performed using dose optimization technique as appropriate and may include automated exposure control or mA/KV adjustment according to patient size. FINDINGS: A pulmonary embolus is not seen. A thoracic aortic aneurysm is not noted. A pleural effusion is not seen. A pericardial effusion is not seen. Bulla and blebs are scattered throughout predominantly the upper lobes. Mild bilateral ground-glass o pacities within the lungs Mild mediastinal and hilar lymphadenopathy left IMPRESSION: Negative for a pulmonary embolism. COPD Mild ground-glass opacities within the lungs indicative of an alveolitis Mild mediastinal and hilar lymphadenopathy probably reactive in nature
[2020-09-29] MEDS: APIXABAN 5 MG TABLET PO SCH ×2 (20:53→21:00)
[2020-09-29] MEDS: CEFTRIAXONE/SWI 1gm 1 GM/10 ML SYR IVP SCH (20:54)
[2020-09-30] MEDS: METHYLPREDNISOLONE 40 MG INJ IV SCH ×2 (01:15→06:23)
[2020-09-30] MEDS: LEVALBUTEROL 1.25 MG/3 ML NEB IH SCH ×2 (01:25→07:35)
[2020-09-30] MEDS: IPRATROPIUM BROM 0.5MG/2.5ML IH SCH ×2 (01:25→07:35)
[2020-09-30 03:47] LABS: Urine Appearance CLEAR; Urine Bilirubin NEGATIVE (NEG); Urine Blood 1+ (NEG); Urine Color YELLOW; Urine Glucose NEGATIVE (NEG); Urine Protein NEGATIVE (NEG); Urine Specific Gravity >=1.030 (1.005-1.030); Urine Urobilinogen 0.2 mg/dL (0.2-1.0); Urine pH 5.5 (5.0-7.0)
[2020-09-30 04:20] LABS: Urine Bacteria <20 /HPF (NONE SEEN)
[2020-09-30 06:34] LABS: Absolute Lymphocytes (CBC) 0.5 K/uL (0.7-4.9); Basophils % 0.4 % (0-1.3); Hematocrit 39.7 % (39.6-49.0); Lymphocytes % 6.9 % (15.3-44.8); RBC Red Blood Cell Count 4.33 M/uL (4.33-5.43)
[2020-09-30 06:46] LABS: BUN Blood Urea Nitrogen 14 mg/dL (7-18); Bicarbonate 23 mmol/L (21-32); Glucose Level 126 mg/dL (74-106); Magnesium 2.2 mg/dL (1.8-2.4); Sodium Level 139 mmol/L (136-145)
[2020-09-30] MEDS: INSULIN -REGULAR HUMAN 50 UNIT/0.5 ML ML SQ SCH (07:30)
[2020-09-30 08:01] VITALS: BP 112/69; TEMP 97.9
[2020-09-30] MEDS: APIXABAN 5 MG TABLET PO SCH (08:40)
[2020-09-30] MEDS: AZITHROMYCIN IV 500 MG in NA CHLORIDE 0.9% 250 ML IVPB SCH (08:41)
[2020-09-30] MEDS: CEFTRIAXONE/SWI 1gm 1 GM/10 ML SYR IVP SCH (08:41)
[2020-09-30] MEDS ORDERED: HOME MED 1 EA UNK (Apixaban [Eliquis] 5 MG Tablet) PO SCH (09:00)
[2020-09-30 09:16] VITALS: O2SAT 95
[2020-09-30 09:39] LABS: Blood Morphology Comment NOT SEEN (NOT SEEN); Platelet Estimate ADEQ; White Blood Cell Scan OK (OK)
[2020-09-30] MEDS ORDERED: PNEUMOCOCCAL VACCINE 0.5 ML IMVAC ONE (10:00)
--- NOTE | 2020-09-30 16:44 | P.DS ---
Admission Date: 09/29/20 Discharge Date: 09/30/20 Disposition: ROUTINE DISCHARGE Discharge Condition: FAIR Brief History of Present Illness: ADALBERTO IS DOING GREAT. HE IS STABLE. HE HAS NO MORE DYSPNEA. HE WILL GO ON MEDROL AND Z HOSSEIN WILL FU IN ONE WEEK. Vital Signs/Physical Exam: Temp Pulse Resp BP Pulse Ox 97.9 F 80 24 H 112/69 95 09/30/20 08:00 09/30/20 08:00 09/30/20 08:00 09/30/20 08:00 09/30/20 08:00 Laboratory Data at Discharge: WBC 8.00 K/uL (4.3-10.9) 09/30/20 06:19 Hgb 13.0 g/dL (13.6-17.9) L 09/30/20 06:19 Hct 39.7 % (39.6-49.0) 09/30/20 06:19 Plt Count 260 K/uL (152-406) 09/30/20 06:19 PT 18.6 SECONDS (9.5-12.5) H 09/29/20 15:31 INR 1.61 09/29/20 15:31 APTT 38.8 SECONDS (24.3-36.9) H 09/29/20 15:31 Sodium 139 mmol/L (136-145) 09/30/20 06:19 Potassium 4.0 mmol/L (3.5-5.1) 09/30/20 06:19 BUN 14 mg/dL (7-18) 09/30/20 06:19 Creatinine 0.75 mg/dL (0.55-1.3) 09/30/20 06:19 Glucose 126 mg/dL (74-106) H 09/30/20 06:19 Phosphorus 4.1 mg/dL (2.5-4.9) 09/29/20 15:31 Magnesium 2.2 mg/dL (1.8-2.4) 09/30/20 06:19 Total Bilirubin 0.8 mg/dL (0.2-1.0) 09/29/20 15:31 AST 23 U/L (15-37) 09/29/20 15:31 ALT 33 U/L (12-78) 09/29/20 15:31 Alkaline Phosphatase 48 U/L (45-117) 09/29/20 15:31 Lipase Cancelled 09/29/20 09:40 Home Medications: Apixaban [Eliquis] 5 mg PO BID 09/29/20 Atorvastatin Calcium [Lipitor] 80 mg PO BEDTIME 09/29/20 Losartan Potassium 25 mg PO DAILY 09/29/20 Metformin ER [Glucophage ER*] 500 mg PO DAILY AFTER SUPPER 09/29/20 Azithromycin [Zithromax Tri-Hossein] 250 mg PO SEECOM #1 pkg 09/30/20 Methylprednisolone [Medrol dosepack] 4 mg PO DIRECTED #1 hossein 09/30/20 New Medications: Methylprednisolone [Medrol dosepack] 4 mg PO DIRECTED #1 hossein Azithromycin [Zithromax Tri-Hossein] 250 mg PO SEECOM #1 pkg Followup: Wu Rm MD [Primary Care Provider] - 1-2 Weeks (Call for appointment)
[2020-09-30] MEDS ORDERED: ATORVASTATIN 40 MG TAB PO SCH (21:00)
[2020-10-03 09:22] LABS: Vitamin D 1,25-Dihydroxy Total 54 pg/mL (18-72); Vitamin D,1,25-OH2, D2 <8 pg/mL
== END 2020-09-30 10:52 | disposition home or self-care (01) ==
LOC: ER 09:29 → 4TH 14:52
PROVIDERS: ADMIT Internal Medicine; ATTEND Internal Medicine
DX: R06.09 Other forms of dyspnea (principal); Z20.822 Contact with and (suspected) exposure to COVID-19; R09.02 Hypoxemia; J44.9 Chronic obstructive pulmonary disease, unspecified; I10 Essential (primary) hypertension; E78.5 Hyperlipidemia, unspecified; E55.9 Vitamin D deficiency, unspecified; E11.51 Type 2 diabetes mellitus with diabetic peripheral angiopathy without gangrene; E11.43 Type 2 diabetes mellitus with diabetic autonomic (poly)neuropathy; I48.0 Paroxysmal atrial fibrillation; Z79.01 Long term (current) use of anticoagulants; Z85.828 Personal history of other malignant neoplasm of skin
CPT/HCPCS: 87040 ×2; 85025 ×2; 81001; 80048 ×2; 36415 ×2; 83735; 84100; 85610; 82947 ×3; 85379; 80076; 85730; 82652; 84443; 84484; 82607; 83880; 86140; 71275; 99281; U0003; Q9967; J0456; J0696 ×2; J7050; J2920 ×4; G0378

== ENCOUNTER 2021-02-20 07:00 | Inpatient (IN) | payer OTHER ==
--- OUTSIDE RECORDS SUMMARY | 2021-02-20 07:04 | XMS REPORT | Continuity of Care Document ---
:1950 Author Organization [facility] t Address [address] [place] [address] Care Team Providers Name Role Phone Sujey NEWBY Primary Care Physician Junaid Guerrero Attending Clinician Unavailable Junaid Guerrero Admitting Clinician Unavailable Payers Payer Name Policy Type Policy [...] DA Active U 2020-0 [facility] [place] [facility] [...] Date Quantity Comments Source Sex Assigned At [address] 1950 [facility] 00:00:00 00:00:00 Smoking Status Start Date Stop Date Source Unknown if ever smoked [facility] Medications This patient has no known medications. Procedures This patient has no known procedures. Plan of Care Planned Activity Planned Date Details Comments Source Future Scheduled Test COVID-19 VACCINE (1) [facility] [code = COVID-19 VACCINE (1)] Future Scheduled Test Hepatitis C screening [facility] (procedure) [code = 155164626] Future Scheduled Test COLONOSCOPY SCREENING [facility] [code = COLONOSCOPY SCREENING] Future Scheduled Test SHINGLES VACCINES (#1) [facility] [code = SHINGLES VACCINES (#1)] Future Scheduled Test 65+ PNEUMOCOCCAL [facility] [place] [facility] VACCINE (1 of 1 - PPSV23) [code = 65+ PNEUMOCOCCAL VACCINE (1 of 1 - PPSV23)] Future Scheduled Test INFLUENZA VACCINE [code [facility] = INFLUENZA VACCINE] Future Scheduled Test COVID-19 VACCINE (1) [facility] [code = COVID-19 VACCINE (1)] Future Scheduled Test Hepatitis C screening [facility] (procedure) [code = 451748775] Future Scheduled Test COLONOSCOPY SCREENING [facility] [code = COLONOSCOPY SCREENING] Future Scheduled Test SHINGLES VACCINES (#1) [facility] [code = SHINGLES VACCINES (#1)] Future Scheduled Test 65+ PNEUMOCOCCAL [facility] VACCINE (1 of 1 - PPSV23) [code = 65+ PNEUMOCOCCAL VACCINE (1 of 1 - PPSV23)] Future Scheduled Test INFLUENZA VACCINE [code [facility] = INFLUENZA VACCINE] Encounters Start End Encounter Admission Attending Care Care Encounter Source Date/Time Date/Time Type Type Clinicians Facility Department ID 2021-02-16 2021-02-16 Outpatient BUDDY WadeTO PAIN [id number] [facility] 10:41:00 10:41:00 [facility] [id number] [facility] 2019-06-11 2019-06-11 Outpatient BL MED 7500 BL 05:29:00 05:29:00 Results Test Description Test Time Test Comments Results Result Sour e Comments - XR FLUORO FOR 2021-02-16 SP[facility]J 20:46:00 [facility] 1950 Sex: M Patient Name: ADALBERTO COOL Unit No: [id number] EXAMS: CPT CODE: [id number] XR FLUORO FOR SPINE INJ 55753 LUMBAR EPIRADICULAR INJECTION REFERRAL PHYSICIAN: None PREOPERATIVE DIAGNOSIS: Lumbar Radiculitis POSTOPERATIVE DIAGNOSIS: Lumbar spondylosis and disc degeneration with spinal stenosis and bilateral lumbar radiculitis PROCEDURES PERFORMED: Fluoroscopically guided needle localization of the bilateral L5 spinal nerves with transforaminal epidurograms and epidural injection of local anesthetic and steroid. FINDINGS: Good flow seen through the bilateral L5-S1 foramen however flow was very limited cephalad in the bilateral L4-5 lateral recesses and anteriorly across the L4-5 discs. Provocation with injection was negative. Anesthetic response was positive with the patient noting complete relief of his low back and radiating lower extremity pains. Preinjection VAS 7/10. Postinjection VAS 0/10. Steroid response pending follow-up. ESTIMATED BLOOD LOSS: Minimal ANESTHESIA: TIVA COMPLICATIONS: Prolonged sensory blockade with possible urinary retention DETAILS OF PROCEDURE: After obtaining stable vital signs, informed consent and IV access, with no contraindications, the patient was taken to the operating room and placed in a prone position with all extremities padded and appropriate monitors placed. The patient was sterilely prepped and draped over the lumbosacral spine. Using fluoroscopic visualization the insertion sites were marked for paravertebral approaches and using standard technique, a 25 gauge needle was advanced to the base of each pedicle without paresthesias. Isovue-300 contrast 0.2 mL of was injected incrementally with frequent negative aspirations to produce each epidurogram. There were no signs of intravascular or intrathecal uptake. Bupivicaine 0.75% 0.25 mL with lidocaine 4% 0.5 mL and Decadron 8 mg was then incrementally injected with frequent negative aspirations and again there were no signs of intravascular or intrathecal uptake. The needles were removed and the patient was taken to the PACU in good condition. Image: Image 1 Image: Image 2 at 2046 Reported and signed by: Albino Guerrero M.D. [facility] NAME: ADALBERTO COOL [address] [facility] PHYS: Albino Michael MD [place] [address] : 1950 AGE: 70 SEX: M LOC: CEZAR PHONE #: [phone] EXAM DATE: 02/16/2021 [place] [facility] [place] #: [phone] RAD #: D/C DT PAGE 1 Signed Report (CONTINUED) Patient Name: ADALBERTO COOL Unit No: [id number] EXAMS: CPT CODE: [id number] XR FLUORO FOR SPINE INJ 76994 <Continued> CC: Technologist: Tamiko Brennan(R) Transcribed D/ (2045) [facility] [place] NAME: ADALBERTO COOL MARIANNE [address] [facility] PHYS: Albino Michael MD [place] [address] : 1950 AGE: 70 SEX: M LOC: CEZAR PHONE #: [phone] EXAM DATE: 02/16/2021 [place]: [facility] [place] #: [phone] RAD #: D/C DT PAGE 2 Signed Report Patient Name: ADALBERTO COOL Unit No: [id number] EXAMS: CPT CODE: [id number] XR FLUORO FOR SPINE INJ 98838 <Continued> Orig Print D/T: S: 02/16/2021 (2049) [facility] NAME: ADALBERTO COOLH [address] [facility] PHYS: Albino Michael MD [place] [address] : 1950 AGE: 70 SEX: M LOC: CEZAR PHONE #: [phone] EXAM DATE: 02/16/2021 [place]: [facility] [place] #: [phone] RAD #: D/C DT PAGE 3 Signed Report GLUBED 2021-02-16 14:15:00 Test Item Value Reference Range Interpretation Comme nts GLUBED (test code = GLUBED) 90 mg/dL 60-125 N [id number] 13:01:00 Test Item Value Reference Range Interpretation Comments GLUBED (test code = GLUBED) 111 mg/dL 60-125 N [id number] 09:11:00 Test Item Value Reference Range Interpretation Comments GLUBED (test code = GLUBED) 134 mg/dL 60-125 H - XR FLUORO FOR SPINE [id number] 19:17:00 [facility] 1950 Sex: M Patient Name: ADALBERTO COOL Unit No: [id number] EXAMS: CPT CODE: [id number] XR FLUORO FOR SPINE INJ 66142 CERVICAL FACET DIAGNOSTIC INJECTION REFERRAL PHYSICIAN: None Preoperative diagnosis: Cervical spondylosis without myelopathy or radiculopathy Postoperative diagnosis: Cervical spondylosis without myelopathy or radiculopathy Procedure performed: Fluoroscopically guided needle localization of the bilateral C3-4 facets with arthrograms and diagnostic injection of local anesthetic and steroid. 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 Misty-articular blockade however produced complete relief the patient's cervicalgia. Preinjection VAS 7/10. Postinjection VAS 0/10. Steroid response pending follow-up. Estimated blood loss: Minimal Anesthesia: TIVA Complications: None Details of procedure: After obtaining stable vital signs, informed consent and IV access, with no contraindications to proceeding, the patient was taken to the operating room and placed in a prone position with all extremities padded and appropriate monitors placed. The patient was sterilely prepped and draped over the cervical spine. Using fluoroscopic visualization the insertion sites were marked for a posterior paravertebral approaches and using standard technique, o36-ciyoh needle was inserted into each joint capsule without paresthesias. Aspiration was negative. Isovue-300 contrast 0.2 mL was injected to produce each arthrogram. There were no signs of intravascular or intrathecal uptake. Bupivacaine 0.75% 0.25 mL with lidocaine 4% 0.25 mL and triamcinolone 16 mg was then injected incrementally with frequent negative aspirations at each joint. There were no signs of intravascular or intrathecal uptake. The patient's vital signs remained stable. All needles were removed and the patient was taken to the PACU in good condition. Image: Image 1 Image: Image 2Image: Image 3 Image: Image 4 Image: Image 5 [facility] NAME: ADALBERTO COOL [address] [facility] PHYS: Albino Michael MD [place], [place] [address] : 1950 AGE: 70 SEX: M LOC: CEZAR PHONE #: [phone] EXAM DATE: 12/15/2020 [place]: [facility] [place]: [phone] RAD #: D/C DT PAGE 1 Signed Report (CONTINUED) Patient Name: ADALBERTO COOL Unit No: [id number] EXAMS: CPT CODE: [id number] XR FLUORO FOR SPINE INJ 72970 <Continued> at 1917 Reported and signed by: Albino Guerrero M.D. CC: Technologist: Tamiko Brennan(R) Transcribed D/ (1916) Annabelle.[facility] NAME: ADALBERTO COOL [address] [facility] PHYS: Albino Michael MD [place], [place] [address] : 1950 AGE: 70 SEX: M LOC: GageYURIDIA PHONE #: [phone] EXAM DATE: 12/15/2020 [place]: [facility] [place] #: [phone] RAD #: D/C DT PAGE 2 Signed Report Patient Name: ADALBERTO PASTOR Unit No: [id number] EXAMS: CPT CODE: [id number] XR FLUORO FOR SPINE INJ 91542 <Continued> Orig Print D/T: S: 12/15/2020 (1919) [facility] NAME: ADALBERTO COOL [address] [facility] PHYS: Albino Michael MD [place], [place] [address] : 1950 AGE: 70 SEX: M LOC: CEZAR PHONE #: [phone] EXAM DATE: 12/15/2020 STATUS: REG [facility] FAX #: [phone] RAD #: D/C DT PAGE 3 Signed ReportGLUBED 2020-12-15 15:00:00 Test Item Value Reference Range Interpretation Comments GLUBED (test code = GLUBED) 105 mg/dL 60-125 N [id number] 10:57:00 Test Item Value Reference Range Interpretation Comments GLUBED (test code = GLUBED) 126 mg/dL 60-125 H - XR FLUORO FOR SPINE [id number] 09:05:00 Patient Name: ADALBERTO COOL Unit No: [id number] EXAMS: CPT CODE: [id number] XR FLUORO FOR SPINE INJ 88167 CERVICAL TRANSFORAMINAL INJECTION REFERRING PHYSICIAN:PREOPERATIVE DIAGNOSIS: Cervical [...] taken to the PACU in good condition. [facility] NAME: ADALBERTO COOL [address] [facility] P HYS: Junior Lind MD [place] [address] : 1950 AGE: 69 SEX: M LOC: CEZAR PHONE #: [phone] EXAM DATE: 04/19/2020 [place]: [facility] [place] #: [phone] RAD #: D/C DT PAGE 1 Signed Report(CONTINUED) Patient Name: ADALBERTO COOL Unit No: [id number] EXAMS: CPT CODE: [id number] XR FLUORO FOR SPINE INJ 35552 <Continued> at 0905 Reported and signed by: Junior Chavarria M.D. CC: Technologist: Tamiko Brennan(R) Transcribed D/ (0905) [facility] [place] NAME: SILVINAADALBERTO XIE MARIANNE [address] [facility] PHYS: Junior Lind MD [place] [address] : 1950 AGE: 69 SEX: M LOC: CEZAR PHONE #: [phone] EXAM DATE: 04/19/2020 [place]: [facility] [place] #: [phone] RAD #: D/C DT PAGE 2 Signed Report Patient Name: ADALBERTO COOL Unit No: [id number] EXAMS: CPT CODE: [id number] XR FLUORO FOR SPINE INJ 39498 <Continued> Orig Print D/T: S: 04/19/2020 (0909) [facility] NAME: ADALBERTO COOL [address] [facility] PHYS: COOPER - Junior Chavarria MD [place], [place] [address] : 1950 AGE: 69 SEX: M LOC: CEZAR PHONE #: [phone] EXAM DATE: 04/19/2020 STATUS: REG [facility] FAX #: [phone] RAD #: D/C DT PAGE 3 Signed [id number] 08:53:00 Test Item Value Reference Range Interpretation Comments GLUBED (test code = GLUBED) 109 mg/dL 60-125 N - XR FLUORO FOR SPINE [id number] 10:12:00 Patient Name: ADALBERTO COOL Unit No: [id number] EXAMS: CPT CODE: [id number] XR FLUORO FOR SPINE INJ 51215 LUMBAR TRANSFORAMINAL INJECTION REFERRING PHYSICIAN: PREOPERATIVE DIAGNOSIS: [...] Reported and signed by: Junior Chavarria M.D. [facility] NAME: ADALBERTO COOL [address] [facility] PHYS: Junior Lind MD [place] [address] : 1950 AGE: 68 SEX: M LOC: CEZAR PHONE #: [phone] EXAM DATE: 08/27/2019 [place]: [facility] [place] #: [phone] RAD #: D/C DT PAGE 1 Signed Report (CONTINUED) Patient Name: JOANN COOL Unit No: [id number] EXAMS: CPT CODE: [id number] XR FLUORO FOR SPINE INJ 58487 <Continued> CC: Technologist: Tamiko Brennan(R) Transcribed D/ (1012) [email or web address] [facility] NAME: ADALBERTO COOL [address] [facility] PHYS: Junior Lind MD [place] [address] : 1950 AGE: 68 SEX: M LOC: CEZAR PHONE #: [phone] EXAM DATE: 08/27/2019 [place]: [facility] [place] #: [phone] RAD #: D/C DT PAGE 2 Signed Report Patient Name: ADALBERTO COOL Unit No: [id number] EXAMS: CPT CODE: [id number] XR FLUORO FOR SPINE INJ 34317 <Continued> Orig Print D/T: S: 08/27/2019 (1015)[facility] NAME: ADALBERTO COOL [address] [facility] PHYS: COOPER - DoctorJunior MD [place], [place] [address] : 1950GE: 68 SEX: M LOC: CEZAR PHONE #: [phone] EXAM DATE: 08/27/2019 STATUS: REG [facility] FAX #: [phone] RAD #: D/C DT PAGE 3 Signed [id number] 09:10:00 Test Item Value Reference Range Interpretation Comments GLUBED (test code = GLUBED) 93 mg/dL 60-125 N [id number] 06:51:00 Test Item Value Reference Range Interpretation Comments GLUBED (test code = GLUBED) 113 mg/dL 60-125 N - XR FLUORO FOR SPINE [id number] 10:42:00 Patient Name: ADALBERTO COOL Unit No: [id number] EXAMS: CPT CODE: [id number] XR FLUORO FOR SPINE INJ 62002 CERVICAL TRANSFORAMINAL INJECTION REFERRING PHYSICIAN:PREOPERATIVE DIAGNOSIS: Cervical [...] taken to the PACU in good condition. [facility] NAME: ADALBERTO COOL [address] [facility] PHYS: Junior Lind MD [place] [address] : 1950 AGE: 68 SEX: M LOC: CEZAR PHONE #: [phone] EXAM DATE: 08/06/2019 [place] [facility] [place]: [phone] RAD #: D/C DT PAGE 1 Signed Report (CONTINUED) Patient Name: ADALBERTO COOL Unit No: [id number] EXAMS: CPT CODE: [id number] XR FLUORO FOR SPINE INJ 23924 <Continued> [id number] Reported and signed by: Junior Chavarria M.D. CC: Technologist: Tamiko Brennan(R) Transcribed D/ (1042) [email or web address] [facility] NAME: ADALBERTO COOL CARINA [address] [facility] PHYS: Junior Lind MD [place] [id number] : 1950 AGE: 68 SEX: M LOC: CEZAR PHONE #: [phone] EXAM DATE: 08/06/2019 [place] [facility] [place] #: [phone] RAD #: D/C DT PAGE 2 Signed Report Patient Name: ADALBERTO COOL Unit No: [id number] EXAMS: CPT CODE: [id number] XR FLUORO FOR SPINE INJ 19773 <Continued> Orig Print D/T: S: 08/06/2019 (1045) [facility] NAME: ADALBERTO COOL [address] [facility] PHYS: COOPER - Doctor,Junior Hazel MD [place], [place] [address] : 1950 AGE: 68 SEX: M LOC: GageYURIDIA PHONE #: [phone] DATE: 08/06/2019 STATUS: REG [facility] FAX #: [phone] RAD #: D/C DT PAGE 3 Signed ReportGLUBED 2019-08-06 09:55:00 Test Item Value Reference Range Interpretation Comments GLUBED (test code = GLUBED) 126 mg/dL 60-125 H [id number] 08:53:00 Test Item Value Reference Range Interpretation Comments GLUBED (test code = GLUBED) 134 mg/dL 60-125 H
[2021-02-20 08:29] LABS: Absolute Lymphocytes (CBC) 0.7 K/uL (0.7-4.9); Basophils % 0.4 % (0-1.3); Hematocrit 39.4 % (39.6-49.0); Lymphocytes % 5.4 % (15.3-44.8); MPV 7.9 fL (7.6-11.3); RBC Red Blood Cell Count 4.28 M/uL (4.33-5.43)
[2021-02-20 08:36] LABS: Protime INR 1.37
[2021-02-20] MEDS ORDERED: NA CHLORIDE 0.9% 1,000 ML ONE (08:37)
--- NOTE | 2021-02-20 08:52 | RAD REPORT ---
EXAM DESCRIPTION: RAD - Chest Single View - 02/20/2021 8:38 am CLINICAL HISTORY: DYSPNEA COMPARISON: No comparisons FINDINGS: Prominence of the pulmonary interstitium. The heart size is within normal limits.No acute osseous abnormality. No significant pleural effusions or pneumothorax. IMPRESSION: Diffuse prominence of the pulmonary tissue may reflect vascular congestion, less likely infection.
[2021-02-20 08:57] LABS: Albumin 3.6 g/dL (3.4-5.0); Bilirubin Direct 0.3 mg/dL (0-0.2); Bilirubin Total 0.9 mg/dL (0.2-1.0); C-Reactive Protein 42.8 mg/L (<3.00); Ferritin 122.7 ng/mL (26-388); Protein, Total 6.8 g/dL (6.4-8.2); Troponin (Emerg Dept Use Only) 0.02 ng/mL (0.0-0.045)
[2021-02-20] MEDS ORDERED: AZITHROMYCIN 500 MG/250 ML BAG IV ONE (09:00)
[2021-02-20] MEDS ORDERED: NA CHLORIDE 0.9% 1,000 ML IV ONE (09:00)
[2021-02-20] MEDS ORDERED: CEFTRIAXONE/SWI 1gm 1 GM/10 ML SYR IV ONE (09:00)
[2021-02-20 09:37] LABS: Blood Morphology Comment NOT SEEN (NOT SEEN); Platelet Estimate ADEQ; White Blood Cell Scan OK (OK)
--- NOTE | 2021-02-20 10:06 | ER ---
Nurse's Notes [facility] Name: Christian Cintron Age: 70 yrs Sex: Male : 1950 Arrival Date: 02/20/2021 Time: 07:05 Bed 19 Private MD: Diagnosis: Acute respiratory failure with hypoxia;Acute on chronic combined systolic (congestive) and diastolic (congestive) heart failure Presentation: 02/20 07:06 Chief complaint: EMS states: called out for shortness of breath, on scene was 60%, em placed on NC at 6 LPM, improved into the 90s, denies chest pain, reports fever and took Tylenol MEDICAL OFFICE COORDINATOR. Coronavirus screen: difficulty breathing, fever. Ebola Screen: Patient negative for fever greater than or equal to 101.5 degrees Fahrenheit, and additional compatible Ebola Virus Disease symptoms Patient denies exposure to infectious person. Patient denies travel to an Ebola-affected area in the 21 days before illness onset. No symptoms or risks identified at this time. Initial Sepsis Screen: Does the patient meet any 2 criteria? RR > 20 per min. HR > 90 bpm. Does the patient have a suspected source of infection? Yes: Productive cough/pneumonia. Risk Assessment: Do you want to hurt yourself or someone else? Patient reports no desire to harm self or others. Onset of symptoms was February 20, 2021. 07:06 Method Of Arrival: EMS: [facility] em 07:06 Acuity: BEATRIZ 2 em Historical: - Allergies: 07:09 No Known Allergies; em - Home Meds: 08:22 Spiriva Respimat 1.25 mcg/actuation inhalation mist once daily [Active]; gabapentin 300 aa5 mg oral cap 3 times per day [Active]; atorvastatin 80 mg Oral tab once daily [Active]; losartan 25 mg Oral tab once daily [Active]; Eliquis 5 mg Oral tab 2 times per day [Active]; metformin 1,000 mg oral tab daily after the evening meal [Active]; metoprolol succinate 25 mg oral Tb24 once daily [Active]; - PMHx: 07:09 Atrial Fib; Diabetes - NIDDM; Hyperlipidemia; Hypertension; em - PSHx: 07:09 None; em - Immunization history:: Client reports receiving the 2nd dose of the Covid vaccine. - Social history:: Smoking status: Patient denies any tobacco usage or history of. Screenin:00 Abuse screen: Denies threats or abuse. Nutritional screening: No deficits noted. aa5 Tuberculosis screening: No symptoms or risk factors identified. Fall Risk IV access (20 points). Total Martinez Fall Scale indicates No Risk (0-24 pts). Assessment: 07:15 General: Appears uncomfortable, Behavior is calm, cooperative. Pain: Denies pain. aa5 Neuro: Level of Consciousness is awake, alert, obeys commands, Oriented to person, place, time, situation. Cardiovascular: Heart tones S1 S2 present Rhythm is atrial fibrillation. Respiratory: Reports shortness of breath cough Airway is patent Respiratory effort is labored, Respiratory pattern is tachypnea. GI: Abdomen is round non-distended. : No signs and/or symptoms were reported regarding the genitourinary system. EENT: No signs and/or symptoms were reported regarding the EENT system. Derm: Skin is pink, warm \T\ dry. Musculoskeletal: Range of motion: intact in all extremities. 08:18 Reassessment: Awaiting chest x-ray, and blood recollected and sent to lab. aa5 08:18 Reassessment: Patient is alert, oriented x 3, equal unlabored respirations, skin aa5 warm/dry/pink. Patient states feeling better. Patient states symptoms have improved. 09:30 Reassessment: Patient is alert, oriented x 3, equal unlabored respirations, skin aa5 warm/dry/pink. Patient denies pain at this time. Patient states symptoms have improved. 10:28 Reassessment: Patient appears in no apparent distress at this time. Patient and/or vg1 family updated on plan of care and expected duration. Pain level reassessed. Patient is alert, oriented x 3, equal unlabored respirations, skin warm/dry/pink. Pt took personal Eliquis at 1009 as requested by Andry LARIOS. 12:37 Reassessment: Patient appears in no apparent distress at this time. Patient and/or vg1 family updated on plan of care and expected duration. Pain level reassessed. Patient is alert, oriented x 3, equal unlabored respirations, skin warm/dry/pink. Vital Signs: 07:06 BP 133 / 98; Pulse 135; Resp 28; Temp 99.2; Pulse Ox 93% on 6 lpm NC; Weight 92.99 kg; em Height 6 ft. 0 in. (182.88 cm); Pain 0/10; 08:15 BP 111 / 83; Pulse 88; Resp 25 S; Temp 98.4(O); Pulse Ox 94% on 5 lpm NC; aa5 09:00 BP 124 / 79; Pulse 76; Resp 18; Pulse Ox 95% on 5 lpm NC; vg1 09:45 BP 116 / 87; Pulse 78; Resp 18; Pulse Ox 99% on 5 lpm NC; vg1 07:06 Body Mass Index 27.80 (92.99 kg, 182.88 cm) em ED Course: 07:05 Patient arrived in ED. em 07:09 Triage completed. em 07:09 Andry Cabral PA is PHCP. jr8 07:09 Ryan Velasquez MD is Attending Physician. jr8 07:09 Arm band placed on. em 07:14 Denisse Traore, SARAH is Primary Nurse. aa5 07:15 Patient has correct armband on for positive identification. Placed in gown. Bed in low aa5 position. Call light in reach. Side rails up X2. classroom monitor on. Pulse ox on. NIBP on. 07:15 Maintain EMS IV. Dressing intact. Good blood return noted. Site clean \T\ dry. Gauge \T\ aa 5 site: 20G R Wrist . 07:22 Chest Single View XRAY In Process Unspecified. EDMS 10:05 Wu Rm MD is Hospitalizing Provider. jr8 20:34 No provider procedures requiring assistance completed. Patient admitted, IV remains in vg1 place. Administered Medications: 08:57 Discontinued: NS 0.9% 1000 ml IV at 1000 ml once jr8 08:20 Drug: NS 0.9% 1000 ml Route: IV; Rate: 1000 ml; Site: right wrist; aa5 09:00 Follow up: IV Status: Order to discontinue infusion; IV Intake: 250ml aa5 10:15 Drug: Rocephin (cefTRIAXone) 1 grams Route: IV; Rate: calculated rate; Site: right hand;vg1 12:29 Follow up: IV Status: Completed infusion; IV Intake: 10ml vg1 10:21 Drug: Lasix (furosemide) 60 mg Route: IVP; Site: right hand; vg1 12:29 Follow up: Response: No adverse reaction vg1 10:26 Drug: Zithromax (azithromycin) 500 mg Route: IVPB; Infused Over: 1 hrs; Site: right vg1 hand; 12:29 Follow up: Response: No adverse reaction; IV Status: Completed infusion; IV Intake: vg1 250ml Intake: 09:00 IV: 250ml; Total: 250ml. aa5 12:29 IV: 250ml; Total: 500ml. vg1 12:29 IV: 10ml; Total: 510ml. vg1 Outcome: 10:06 Decision to Hospitalize by Provider. theresa 20:34 Admitted to Tele accompanied by tech, with oxygen, with chart, Report called to america Sykes RN 20:34 Condition: stable 20:34 Instructed on the need for admit. 21:33 Patient left the ED. em Signatures: Dispatcher [employer] Adam Hammond, RN RN Denisse Espinoza RN RN Andry Mac PA PA jr8 Garcia, Victoria RN SARAH vg1
--- NOTE | 2021-02-20 10:06 | EDPHYS ---
Physician Documentation [facility] Name: Christian Cintron Age: 70 yrs Sex: Male : 1950 Arrival Date: 02/20/2021 Time: 07:05 Bed 19 Private MD: ED Physician Ryan Velasquez HPI: 02/20 10:01 This 70 yrs old Male presents to ER via EMS with complaints of Shortness Of jr8 Breath. 10:01 The patient has shortness of breath at rest. Onset: The symptoms/episode began/occurred jr8 gradually, yesterday, and became worse today, and became persistent today. Duration: The symptoms are continuous. The patient's shortness of breath is aggravated by light activity. Associated signs and symptoms: Pertinent positives: fever, Body aches and chills. Severity of symptoms: At their worst the symptoms were moderate in the emergency department the symptoms are unchanged. It is unknown whether or not the patient has had similar symptoms in the past. The patient has not recently seen a physician. Patient stated that he started to not feel well yesterday. Today had body aches chills and acute onset shortness of breath. EMS found patient to be 67% room air. Patient was put on oxygen at that time and is now between 90 to 94% on 6 L nasal cannula. Patient stated that he did get both of his Covid vaccines in the past. Denies history of heart failure but does have history of pneumonia in the past.. Historical: - Allergies: 07:09 No Known Allergies; em - Home Meds: 08:22 Spiriva Respimat 1.25 mcg/actuation inhalation mist once daily [Active]; gabapentin 300 aa5 mg oral cap 3 times per day [Active]; atorvastatin 80 mg Oral tab once daily [Active]; losartan 25 mg Oral tab once daily [Active]; Eliquis 5 mg Oral tab 2 times per day [Active]; metformin 1,000 mg oral tab daily after the evening meal [Active]; metoprolol succinate 25 mg oral Tb24 once daily [Active]; - PMHx: 07:09 Atrial Fib; Diabetes - NIDDM; Hyperlipidemia; Hypertension; em - PSHx: 07:09 None; em - Immunization history:: Client reports receiving the 2nd dose of the Covid vaccine. - Social history:: Smoking status: Patient denies any tobacco usage or history of. ROS: 10:01 Eyes: Negative for injury, pain, redness, and discharge, ENT: Negative for injury, jr8 pain, and discharge, Neck: Negative for injury, pain, and swelling, Cardiovascular: Negative for chest pain, palpitations, and edema, Abdomen/GI: Negative for abdominal pain, nausea, vomiting, diarrhea, and constipation, Back: Negative for injury and pain, MS/Extremity: Negative for injury and deformity, Skin: Negative for injury, rash, and discoloration, Neuro: Negative for headache, weakness, numbness, tingling, and seizure. 10:01 Constitutional: Positive for body aches, chills, fever. 10:01 Respiratory: Positive for dyspnea on exertion, shortness of breath. Exam: 10:01 Eyes: Pupils equal round and reactive to light, extra-ocular motions intact. Lids and jr8 lashes normal. Conjunctiva and sclera are non-icteric and not injected. Cornea within normal limits. Periorbital areas with no swelling, redness, or edema. ENT: Nares patent. No nasal discharge, no septal abnormalities noted. Tympanic membranes are normal and external auditory canals are clear. Oropharynx with no redness, swelling, or masses, exudates, or evidence of obstruction, uvula midline. Mucous membranes moist. Neck: Trachea midline, no thyromegaly or masses palpated, and no cervical lymphadenopathy. Supple, full range of motion without nuchal rigidity, or vertebral point tenderness. No Meningismus. Abdomen/GI: Soft, non-tender, with normal bowel sounds. No distension or tympany. No guarding or rebound. No evidence of tenderness throughout. Back: No spinal tenderness. No costovertebral tenderness. Full range of motion. Skin: Warm, dry with normal turgor. Normal color with no rashes, no lesions, and no evidence of cellulitis. MS/ Extremity: Pulses equal, no cyanosis. Neurovascular intact. Full, normal range of motion. Neuro: Awake and alert, GCS 15, oriented to person, place, time, and situation. Cranial nerves II-XII grossly intact. Motor strength 5/5 in all extremities. Sensory grossly intact. 10:01 Cardiovascular: Rate: tachycardic, Rhythm: irregularly irregular, Pulses: Pulses are 2+ in right radial artery and left radial artery. Heart sounds: normal, normal S1and S2, Edema: is not appreciated. 10:01 Respiratory: mild respiratory distress is noted, Respirations: tachypnea, that is mild, Breath sounds: rales, that are mild, are located in both bases, wheezing: that is mild, is heard in the left posterior lower lobe, right posterior middle lobe and right posterior lower lobe. Vital Signs: 07:06 BP 133 / 98; Pulse 135; Resp 28; Temp 99.2; Pulse Ox 93% on 6 lpm NC; Weight 92.99 kg; em Height 6 ft. 0 in. (182.88 cm); Pain 0/10; 08:15 BP 111 / 83; Pulse 88; Resp 25 S; Temp 98.4(O); Pulse Ox 94% on 5 lpm NC; aa5 09:00 BP 124 / 79; Pulse 76; Resp 18; Pulse Ox 95% on 5 lpm NC; vg1 09:45 BP 116 / 87; Pulse 78; Resp 18; Pulse Ox 99% on 5 lpm NC; vg1 07:06 Body Mass Index 27.80 (92.99 kg, 182.88 cm) em MDM: 07:09 Patient medically screened. [facility] 10:01 Data reviewed: vital signs, nurses notes, lab test result(s), EKG, radiologic studies, [facility] plain films. Data interpreted: Pulse oximetry: on 6L(s) per nasal canula, is 93 %. Interpretation: acceptable. Counseling: I had a detailed discussion with the patient and/or guardian regarding: the historical points, exam findings, and any diagnostic results supporting the discharge/admit diagnosis, lab results, radiology results, the need for further work-up and treatment in the hospital. ED course: Discussed case with Dr. Rm. Will admit patient. Will consult pulmonary and cardiology . 02/20 07:10 Order name: Basic Metabolic Panel [facility] 02/20 07:10 Order name: Blood Culture Adult (2) [facility] 02/20 07:10 Order name: C-Reactive Protein; Complete Time: 08:58 [facility] 02/20 07:10 Order name: CBC with Diff; Complete Time: 09:46 [facility] 02/20 07:10 Order name: LFT's; Complete Time: 08:58 [facility] 02/20 07:10 Order name: Lactate; Complete Time: 08:55 [facility] 02/20 07:10 Order name: Lipase; Complete Time: 08:58 jr8 02/20 07:10 Order name: Procalcitonin; Complete Time: 08:55 jr8 02/20 07:10 Order name: Protime (+inr); Complete Time: 08:55 jr8 02/20 07:10 Order name: Ptt, Activated; Complete Time: 08:55 jr8 02/20 07:10 Order name: Troponin (emerg Dept Use Only); Complete Time: 08:58 jr8 02/20 07:10 Order name: Urine Microscopic Only; Complete Time: 13:53 jr8 02/20 07:10 Order name: Ferritin; Complete Time: 08:58 jr8 02/20 07:10 Order name: Chest Single View XRAY; Complete Time: 08:55 jr8 02/20 07:10 Order name: Accucheck; Complete Time: 07:30 jr8 02/20 07:11 Order name: Basic Metabolic Panel; Complete Time: 08:58 EDMS 02/20 07:30 Order name: Flu; Complete Time: 08:55 jr8 02/20 07:37 Order name: Glucose, Ancillary Testing; Complete Time: 08:55 EDMS 02/20 08:32 Order name: CBC Smear Scan; Complete Time: 09:46 EDMS 02/20 08:47 Order name: SARS-COV-2 RT PCR; Complete Time: 08:55 EDMS 02/20 08:55 Order name: BNP; Complete Time: 09:46 jr8 02/20 10:42 Order name: Lactate Sepsis 2 HR Follow-up; Complete Time: 10:58 EDMS 02/20 12:35 Order name: Urine Dipstick-Ancillary; Complete Time: 12:38 EDMS 02/20 12:44 Order name: CONS Physician Consult EDMS 02/20 19:48 Order name: Troponin I EDMS 02/20 07:10 Order name: Cardiac monitoring; Complete Time: 07:21 jr8 02/20 07:10 Order name: EKG - Nurse/Tech; Complete Time: 07:30 jr8 02/20 07:10 Order name: IV Saline Lock - Large Bore; Complete Time: 07:21 jr8 02/20 07:10 Order name: Labs collected and sent; Complete Time: 07:21 jr8 02/20 07:10 Order name: O2 Per Protocol; Complete Time: 07:21 8 02/20 07:10 Order name: O2 Sat Monitoring; Complete Time: 07:21 8 02/20 07:10 Order name: Urine Dipstick-Ancillary (obtain specimen); Complete Time: 12:37 8 02/20 07:35 Order name: Labs - recollect needed: recollect labs; Complete Time: 08:12 bd Administered Medications: 08:57 Discontinued: NS 0.9% 1000 ml IV at 1000 ml once jr8 08:20 Drug: NS 0.9% 1000 ml Route: IV; Rate: 1000 ml; Site: right wrist; aa5 09:00 Follow up: IV Status: Order to discontinue infusion; IV Intake: 250ml aa5 10:15 Drug: Rocephin (cefTRIAXone) 1 grams Route: IV; Rate: calculated rate; Site: right hand;vg1 12:29 Follow up: IV Status: Completed infusion; IV Intake: 10ml vg1 10:21 Drug: Lasix (furosemide) 60 mg Route: IVP; Site: right hand; vg1 12:29 Follow up: Response: No adverse reaction vg1 10:26 Drug: Zithromax (azithromycin) 500 mg Route: IVPB; Infused Over: 1 hrs; Site: right vg1 hand; 12:29 Follow up: Response: No adverse reaction; IV Status: Completed infusion; IV Intake: vg1 250ml Disposition: 02/21 07:09 Co-signature as Attending Physician, Ryan Velasquez MD I agree with the assessment and marina plan of care. 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 EDMS EDMS 19:05 10:06 jr8 bd 19:44 19:05 228 bd dw
[2021-02-20] MEDS ORDERED: CEFTRIAXONE/SWI 1gm 1 GM/10 ML SYR ONE (10:20)
[2021-02-20] MEDS ORDERED: FUROSEMIDE 100 MG/10 ML VIAL IV ONE (10:30)
[2021-02-20 12:36] LABS: Urine Blood Negative (Negative); Urine Glucose Negative (Negative); Urine Protein Negative (Negative)
[2021-02-20 13:24] LABS: Urine Bacteria NONE SEEN /HPF (NONE SEEN); Urine RBC <5 /HPF (NONE SEEN)
[2021-02-20] MEDS ORDERED: ALBUTEROL 2.5 MG/3 ML NEB SOL NEB PRN (15:23)
[2021-02-20] MEDS ORDERED: ACETAMINOPHEN 500 MG TAB PO PRN (15:23)
[2021-02-20] MEDS ORDERED: ONDANSETRON 4 MG/2 ML VIAL IV PRN (15:23)
[2021-02-20] MEDS ORDERED: IPRATROPIUM BROM 0.5MG/2.5ML NEB PRN (15:23)
[2021-02-20] MEDS: FUROSEMIDE 20 MG/ 2ML VIAL IV SCH (17:00)
[2021-02-20] MEDS ORDERED: FUROSEMIDE 20 MG/ 2ML VIAL ONE (18:49)
[2021-02-20] MEDS ORDERED: METHYLPREDNISOLONE 125 MG INJ IV SCH (21:00)
[2021-02-20] MEDS ORDERED: APIXABAN 5 MG TABLET PO SCH (21:00)
--- NOTE | 2021-02-20 21:13 | P.HP ---
Certification for Inpatient Patient admitted to: Inpatient With expected LOS: >2 Midnights Practitioner: I am a practitioner with admitting privileges, knowledge of patient current condition, hospital course, and medical plan of care. Services: Services provided to patient in accordance with Admission requirements found in Title 42 Section 412.3 of the Code of Federal Regulations Patient History Date of Service: 02/20/21 Reason for admission: SHORT OF BREATH, COUGH History of Present Illness: MR. COOL HAS COPD, HE IS FULLY COVID VACCINATED ABOUT3 MONTHS AGO, COMES WITH DYSPNEA AND COUGH OVERNIGHT. HE HAS LOW GRADE TEMP ELEVATION. HE DOES NOT HAVE ANY ISSUES WITH TASTE OR SMELL. HE HAS BEEN TO [facility] RECENTLY. Allergies No Known Drug Allergies Allergy (Verified 02/20/21 08:35) Itching Home medications list reviewed: Yes Home Medications: Apixaban [Eliquis] 5 mg PO BID 09/29/20 Atorvastatin Calcium [Lipitor] 80 mg PO BEDTIME 09/29/20 Losartan Potassium 25 mg PO DAILY 09/29/20 Metformin ER [Glucophage ER*] 500 mg PO DAILY AFTER SUPPER 09/29/20 Azithromycin [Zithromax Tri-Hossein] 250 mg PO SEECOM #1 pkg 09/30/20 Methylprednisolone [Medrol dosepack] 4 mg PO DIRECTED #1 hossein 09/30/20 - Past Medical/Surgical History Has patient received pneumonia vaccine in the past: Yes Diabetic: Yes -: COPD -: Diabetes -: High cholesterol -: Afib - Social History Smoking Status: Former smoker (2PP Y FOR 30 YEARS.) Alcohol use: No CD- Drugs: No Caffeine use: No Place of Residence: Home Review of Systems 10-point ROS is otherwise unremarkable General: Weakness, Malaise Respiratory: Cough, Shortness of Breath Physical Examination - Vital Signs Temperature: 98.4 F Blood Pressure: 122/85 Pulse: 75 Respirations: 22 Pulse Ox (%): 97 - Physical Exam General: Alert, Oriented x3, Moderate distress HEENT: Atraumatic, PERRLA, Mucous membr. moist/pink, EOMI, Sclerae nonicteric Neck: Supple, 2+ carotid pulse no bruit, No LAD, Without JVD or thyroid abnormality Respiratory: Diminished, Crackles/rales Cardiovascular: Irregular heart rate/rhythm Gastrointestinal: Normal bowel sounds, No tenderness Musculoskeletal: No tenderness Integumentary: No rashes Neurological: Normal gait, Normal speech, Normal strength at 5/5 x4 extr, Normal tone, Normal affect Lymphatics: No axilla or inguinal lymphadenopathy - Studies Laboratory Data (last 24 hrs) 02/20/21 08:15: PT 15.8 H, INR 1.37, APTT 27.3 02/20/21 08:15: WBC 13.00 H, Hgb 13.3 L, Hct 39.4 L, Plt Count 168 02/20/21 08:15: Sodium 140, Potassium 4.0, BUN 15, Creatinine 0.91, Glucose 118 H, Total Bilirubin 0.9, AST 22, ALT 42, Alkaline Phosphatase 32 L, Lipase 50 L Microbiology Data (last 24 hrs): 02/20/21 08:20 Nasopharnyx Influenza Type A Antigen Screen - Final 02/20/21 08:20 Nasopharnyx Influenza Type B Antigen Screen - Final Assessment and Plan - Problems (Diagnosis) (1) Atypical pneumonia Current Visit: Yes Status: Acute Plan: COVID TEST IS NEGATIVE THIS CAN BE ATYPICAL OR VIRAL PNEUMONIA. CONTINUE ROCEPHIN AND ZITHROMAX. LAB DAILY. HE BE FALSE NEG COVID BUT LESS LIKELY. HE IS ALREADY ON ELIQUIS FOR A FIB. DR. AGUILAR CONSULTED. (2) Diastolic CHF, acute Current Visit: Yes Status: Acute Plan: BNP IS HIGH . CHF IS POSSIBLE ONSET WAS ACUTE BUT IT HAS MORE INFECTIOUS CHARACTER THAN CHF. (3) Diabetes Current Visit: Yes Status: Chronic Plan: A1C IS CONTROLLED WITH METFORMIN. (4) A-fib Current Visit: Yes Status: Acute - Advance Directives Does patient have a Living Will: Yes Does patient have a Durable POA for Healthcare: No
[2021-02-20] MEDS: FAMOTIDINE 20 MG/2 ML VIAL IV SCH (21:44)
[2021-02-20] MEDS: ASCORBIC ACID 500 MG TABLET PO SCH (21:45)
[2021-02-21 06:10] LABS: Absolute Lymphocytes (CBC) 0.5 K/uL (0.7-4.9); Basophils % 0.3 % (0-1.3); Hematocrit 43.6 % (39.6-49.0); Lymphocytes % 6.2 % (15.3-44.8); MPV 8.5 fL (7.6-11.3); RBC Red Blood Cell Count 4.75 M/uL (4.33-5.43)
--- NOTE | 2021-02-21 08:30 | P.CNS ---
Date of Consult: 02/21/21 Reason for Consult: SOB Chief Complaint: SHORT OF BREATH, COUGH History of Present Illness: AGe 70 AW acute cough and worsening SOB/ mild fever/ COVID neg/ former smoker Allergies No Known Drug Allergies Allergy (Verified 02/20/21 23:07) Itching Home Medications: Apixaban [Eliquis] 5 mg PO BID 09/29/20 Atorvastatin Calcium [Lipitor] 80 mg PO BEDTIME 09/29/20 Losartan Potassium 25 mg PO DAILY 09/29/20 Metformin ER [Glucophage ER*] 500 mg PO DAILY AFTER SUPPER 09/29/20 Gabapentin 1 cap PO TID 02/20/21 Metoprolol Succinate [Toprol Xl*] 1 tab PO DAILY 02/20/21 - Past Medical/Surgical History Diabetic: Yes -: COPD -: Diabetes -: High cholesterol -: Afib - Social History Smoking Status: Former smoker Alcohol use: No CD- Drugs: No Caffeine use: No Place of Residence: Home Physical Examination Temp Pulse Resp BP Pulse Ox 97.8 F 77 20 134/79 93 02/21/21 04:00 02/21/21 04:00 02/21/21 04:00 02/21/21 04:00 02/21/21 04:00 Laboratory Data (last 24 hrs) 02/20/21 08:15: PT 15.8 H, INR 1.37, APTT 27.3 02/20/21 08:15: WBC 13.00 H, Hgb 13.3 L, Hct 39.4 L, Plt Count 168 02/20/21 08:15: Sodium 140, Potassium 4.0, BUN 15, Creatinine 0.91, Glucose 118 H, Total Bilirubin 0.9, AST 22, ALT 42, Alkaline Phosphatase 32 L, Lipase 50 L - Problems (1) COPD exacerbation Current Visit: Yes Status: Acute Plan: yrs PT is 70 yrs of age AW acute exacerbation of COPD/ Pred CT severe COPD/ Doubt COVID./ fully vaccinated/cxry reviwed ILD secondary to COPD?/ PT is on SPriiva at home upgarde to dual beonchodialtor/ add o pred may qualify for home O2
[2021-02-21] MEDS ORDERED: METHYLPREDNISOLONE 125 MG INJ IV SCH (09:00)
[2021-02-21] MEDS ORDERED: CEFTRIAXONE/SWI 1gm 1 GM/10 ML SYR IV SCH (09:00)
[2021-02-21] MEDS ORDERED: IVERMECTIN 3 MG TABLET PO SCH (09:00)
[2021-02-21] MEDS ORDERED: AZITHROMYCIN IV 500 MG in NA CHLORIDE 0.9% 250 ML IVPB SCH (09:00)
[2021-02-21] MEDS ORDERED: CEFTRIAXONE 1 GM/NS 50 ML 1 GM/50 ML BAG IV SCH (09:00)
[2021-02-21] MEDS: ZINC SULFATE 220 MG CAP PO SCH (09:54)
[2021-02-21] MEDS: VITAMIN D 5,000 UNIT CAP PO SCH (09:55)
[2021-02-21] MEDS: FUROSEMIDE 20 MG/ 2ML VIAL IV SCH ×2 (09:55→16:59)
[2021-02-21] MEDS: METOPROLOL XL 25 MG TAB PO SCH (09:55)
[2021-02-21] MEDS: GABAPENTIN 300 MG CAP PO SCH ×3 (09:55→22:07)
[2021-02-21] MEDS: LOSARTAN POTASSIUM 50 MG TABLET PO SCH (09:55)
[2021-02-21] MEDS: ASCORBIC ACID 500 MG TABLET PO SCH ×2 (09:55→22:06)
[2021-02-21] MEDS: FAMOTIDINE 20 MG/2 ML VIAL IV SCH ×2 (09:55→22:06)
[2021-02-21] MEDS: APIXABAN 5 MG TABLET PO SCH ×3 (09:56→22:07)
[2021-02-21] MEDS ORDERED: predniSONE 20 MG TAB PO SCH (10:07)
--- NOTE | 2021-02-21 12:14 | RAD REPORT ---
EXAM DESCRIPTION: CT - Thorax W/ Con CLINICAL HISTORY: Chest pain Pneumonia COMPARISON: Chest Angio dated 09/29/2020; Chest Single View dated 02/20/2021 FINDINGS: Moderately severe fibrotic changes are present throughout the lungs. Diffuse emphysema is present. A focal infiltrate is not detected. No pleural thickening or pleural effusion. No pneumothor ax. Mild adenopathy is seen in the mediastinum, however appears improved since 09/29/2020. For example, p retracheal lymph node currently measures 16 mm, previously 23 mm. No concerning bony finding. No gross upper abdominal finding. All CT scans are performed using dose optimization technique as appropriate and may include automated exposure control or mA/KV adjustment according to patient size. IMPRESSION: Moderate pulmonary fibrotic changes are present without evidence of acute infiltrate.
--- NOTE | 2021-02-21 17:02 | EKG ---
Test Date: 2021-02-20 Test Time: 07:26:45 Manufacturing Laborer: DEBBY MEASUREMENT RESULTS: Intervals: Rate: 104 [place]: QRSD: 124 QT: 374 QTc: 491 [place]: P: IL: QRS: 136 T: -23 INTERPRETIVE STATEMENTS: Atrial fibrillation with rapid ventricular response Right bundle branch block T wave abnormality, consider inferolateral ischemia Abnormal ECG Compared to ECG 03/21/2020 10:17:36 T-wave abnormality now present Possible ischemia now present Sinus rhythm no longer present Ventricular premature complex(es) no longer present Electronically Signed On 02-21-21 16:59:05 CDT by Ralph Gruber
[2021-02-21] MEDS ORDERED: METFORMIN ER 500 MG TAB PO SCH (17:30)
--- NOTE | 2021-02-21 17:54 | P.PN ---
Subjective Date of Service: 02/21/21 Chief Complaint: SHORT OF BREATH, COUGH Subjective: Improving HE IS FEELING A LOT BETTER. ABLE TO AMBULATE IN THE ROOM. SECOND COVID TEST IS NEGATIVE Physical Examination - Vital Signs Temperature: 97.9 F Blood Pressure: 107/71 Pulse: 74 Respirations: 20 Pulse Ox (%): 93 - Physical Exam General: Oriented x3, Mild distress HEENT: Atraumatic, PERRLA, EOMI Neck: Supple, JVD not distended Respiratory: Diminished, Crackles/rales Cardiovascular: Regular rate/rhythm, Normal S1 S2 Gastrointestinal: Normal bowel sounds, No tenderness Musculoskeletal: No tenderness Integumentary: No rashes Neurological: Normal speech, Normal tone, Normal affect Lymphatics: No axilla or inguinal lymphadenopathy - Studies Medications List Reviewed: Yes Assessment And Plan - Current Problems (Diagnosis) (1) Atypical pneumonia Current Visit: Yes Status: Acute Plan: COVID TEST IS NEGATIVE THIS CAN BE ATYPICAL OR VIRAL PNEUMONIA. CONTINUE ROCEPHIN AND ZITHROMAX. LAB DAILY. HE BE FALSE NEG COVID BUT LESS LIKELY. HE IS ALREADY ON ELIQUIS FOR A FIB. DR. AGUILAR CONSULTED. RULED OUT, CT SCANS SHOWS FIBROSIS AND NOT PNEUMONIA. (2) Diastolic CHF, acute Current Visit: Yes Status: Acute Plan: BNP IS HIGH . CHF IS POSSIBLE ONSET WAS ACUTE BUT IT HAS MORE INFECTIOUS CHARACTER THAN CHF. (3) Diabetes Current Visit: Yes Status: Chronic Plan: A1C IS CONTROLLED WITH METFORMIN. (4) A-fib Current Visit: Yes Status: Acute (5) Pulmonary fibrosis Current Visit: Yes Status: Chronic Plan: THERE IS NO CURE TO THIS CONDITION. DR. AGUILAR IS AWARE. (6) COPD exacerbation Current Visit: Yes Status: Chronic Plan: HE HAS COPD AND FIBROISS. CONTINUE STEROIDS. CONT NEBS
[2021-02-21] MEDS ORDERED: ATORVASTATIN 80 MG TAB PO SCH (21:00)
[2021-02-21] MEDS: predniSONE 20 MG TAB PO SCH (22:07)
[2021-02-21 22:20] VITALS: O2SAT 91
[2021-02-21 23:32] VITALS: BMI 26.3
[2021-02-22] MEDS: ASCORBIC ACID 500 MG TABLET PO SCH (08:32)
[2021-02-22] MEDS: VITAMIN D 5,000 UNIT CAP PO SCH (08:32)
[2021-02-22] MEDS: ZINC SULFATE 220 MG CAP PO SCH (08:32)
[2021-02-22] MEDS: predniSONE 20 MG TAB PO SCH (08:33)
[2021-02-22] MEDS: GABAPENTIN 300 MG CAP PO SCH (08:33)
[2021-02-22] MEDS: FUROSEMIDE 20 MG/ 2ML VIAL IV SCH (08:33)
[2021-02-22] MEDS: APIXABAN 5 MG TABLET PO SCH (08:34)
[2021-02-22] MEDS: FAMOTIDINE 20 MG/2 ML VIAL IV SCH (08:34)
[2021-02-22] MEDS: METOPROLOL XL 25 MG TAB PO SCH (08:35)
[2021-02-22] MEDS: LOSARTAN POTASSIUM 50 MG TABLET PO SCH (08:35)
[2021-02-22 08:36] VITALS: BP 116/78
[2021-02-22 09:02] VITALS: TEMP 96.7
--- NOTE | 2021-02-22 12:56 | P.DS ---
Admission Date: 02/20/21 Discharge Date: 02/22/21 Disposition: ROUTINE DISCHARGE Discharge Condition: SERIOUS Reason for Admission: SHORT OF BREATH, COUGH - Problems (1) Atypical pneumonia Status: Acute (2) Diastolic CHF, acute Status: Acute (3) Diabetes Status: Chronic (4) A-fib Status: Acute (5) Pulmonary fibrosis Status: Chronic (6) COPD exacerbation Status: Chronic Brief History of Present Illness: MR. COOL HAS COPD, HE IS FULLY COVID VACCINATED ABOUT3 MONTHS AGO, COMES WITH DYSPNEA AND COUGH OVERNIGHT. HE HAS LOW GRADE TEMP ELEVATION. HE DOES NOT HAVE ANY ISSUES WITH TASTE OR SMELL. HE HAS BEEN TO [facility] FOR HIS BACK RECENTLY. Hospital Course: ADALBERTO HAS SEVERE COPD WITH FIBROSIS. HE IS STABLE AND ABLE TO GO HOME ON STEROIDS ORALLY, NEBULIZER AT HOME AND WILL FU WITH DR. RODRIGUEZ. IN THE HOSPITAL HE WAS GIVEN IV STEROIDS, NEBS AND ABX. THERE IS NO CHF ON CT SCAN. Vital Signs/Physical Exam: Temp Pulse Resp BP Pulse Ox 96.7 F L 79 18 116/78 98 02/22/21 08:00 02/22/21 08:33 02/22/21 08:00 02/22/21 08:33 02/22/21 08:00 Laboratory Data at Discharge: WBC 8.80 K/uL (4.3-10.9) D 02/21/21 05:30 Hgb 14.8 g/dL (13.6-17.9) 02/21/21 05:30 Hct 43.6 % (39.6-49.0) 02/21/21 05:30 Plt Count 193 K/uL (152-406) 02/21/21 05:30 PT 15.8 SECONDS (9.5-12.5) H 02/20/21 08:15 INR 1.37 02/20/21 08:15 APTT 27.3 SECONDS (24.3-36.9) 02/20/21 08:15 Sodium 140 mmol/L (136-145) 02/21/21 05:30 Potassium 4.0 mmol/L (3.5-5.1) 02/21/21 05:30 BUN 22 mg/dL (7-18) H 02/21/21 05:30 Creatinine 0.86 mg/dL (0.55-1.3) 02/21/21 05:30 Glucose 155 mg/dL (74-106) H 02/21/21 05:30 Total Bilirubin 0.9 mg/dL (0.2-1.0) 02/20/21 08:15 AST 22 U/L (15-37) 02/20/21 08:15 ALT 42 U/L (12-78) 02/20/21 08:15 Alkaline Phosphatase 32 U/L (45-117) L 02/20/21 08:15 Troponin I < 0.02 ng/mL (0.0-0.045) 02/20/21 22:53 Triglycerides 77 mg/dL (<150) 02/21/21 05:30 Cholesterol 159 mg/dL (<200) 02/21/21 05:30 HDL Cholesterol 57 mg/dL (40-60) 02/21/21 05:30 Cholesterol/HDL Ratio 2.79 02/21/21 05:30 Lipase 50 U/L (73-393) L 02/20/21 08:15 Home Medications: Apixaban [Eliquis] 5 mg PO BID 09/29/20 Atorvastatin Calcium [Lipitor] 80 mg PO BEDTIME 09/29/20 Losartan Potassium 25 mg PO DAILY 09/29/20 Metformin ER [Glucophage ER*] 500 mg PO DAILY AFTER SUPPER 09/29/20 Gabapentin 1 cap PO TID 02/20/21 Metoprolol Succinate [Toprol Xl*] 1 tab PO DAILY 02/20/21 predniSONE [Prednisone*] 20 mg PO BID #30 tab 02/22/21 New Medications: predniSONE [Prednisone*] 20 mg PO BID #30 tab Physician Discharge Instructions: PROBLEM: COPD, Pulmonary Fibrosis, CHF GOAL: Clear understanding of disease process E-scripts sent to [facility] in [place]. INSTRUCTIONS: - Follow up with Dr. Rm in 1 week. - Follow up with Dr. Campos, senior database administrator, in 1-2 weeks. - Take new prescription for prednisone as ordered. - Weigh yourself daily and keep a record of your weight. If you gain 3 or more pounds in 1 week, notify your physician. - Return to the ER if your symptoms worsen. - Call the 2nd floor at if you have any questions regarding your hospital stay. Diet: Low sodium Activity: As tolerated DME DME: Home oxygen Date Ordered: 8/4/21 Name of Company: [employer] Influenza Vaccine Indicated: Influenza Vaccine Given: Date Given: Pneumonia Vaccine Indicated: No Pneumonia Vaccine Given: Date Given: Followup: Carlitos Campos MD [ACTIVE - CAN ADMIT] - 1-2 Weeks (Follow up in office in 1-2 weeks. Call to schedule an appointment.) Wu Rm MD [Primary Care Provider] - 1 Week (Follow up in office in 1 week. Call to schedule an appointment. )
--- NOTE | 2021-02-24 13:02 | CON ---
Date of Consultation: 02/21/2021 Reason For Consultation: Acute respiratory failure. History Of Present Illness: Mr. Cintron is a 70-year-old male with history of atrial fibrillation, di abetes, hypertension, and dyslipidemia. He came in mostly with shortness of breath that has been goi ng on for few days, but has worsened. Also complained of just generalized body ache. When he was pi cked up by the EMS, his O2 saturation was 67%. The patient has been vaccinated with COVID vaccine. Has had a history of pneumonia in the past. Denies any chest pain, nausea, vomiting, diaphoresis. H as had PND, orthopnea, and has had pedal edema. Allergies: NONE. Review of Systems: Negative. Social History: Negative. Family History: Negative. Medications: Include inhalers, gabapentin, Lipitor 80 mg daily, Eliquis 5 mg b.i.d., metformin, and metoprolol. Physical Examination: General: He was initially in atrial fibrillation with rapid ventricular response by the time of fall and he was still in atrial fibrillation. Vital Signs: Heart rate was 74, his blood pressure was 107/71. He was afebrile, breathing at 25 [place] [address] [address] a minute, O2 saturation was 96% on 5 L of nasal cannula. HEENT: Negative. Neck: Supple. No bruit. Chest: Revealed expiratory wheezing and rales at both bases. Cardiac: Revealed irregularly irregular rhythm and rate without any murmurs, gallops, or rubs. Abdomen: Benign. Extremities: Revealed no clubbing, cyanosis, or edema. Laboratory Data: His creatinine was 0.86. White count was 13,000, hemoglobin was 13.3. His troponi n was negative. His C-reactive protein was elevated at 100. BNP was 2995. Hemoglobin A1c was 6.5. Impression And Plan: Acute respiratory failure. The patient has been seen by Dr. Campos because o f shortness of breath and mild fever. Dr. Campos feels that the patient has an acute exacerbation of chronic obstructive pulmonary disease. The patient was upgraded to dual bronchodilator. Predniso ne home oxygen was being planned. Cardiac de la torre, he has atrial fibrillation with rate controlled. He has hypertension that is well controlled, dyslipidemia that is well controlled. I would continue hi s present regimen for chronic obstructive pulmonary disease for pneumonia and continue the metoprolol and Eliquis for his atrial fibrillation. We will hold both cardiac workup at this point. We are co mfortable with him going home whenever it is okay with Dr. Campos and then I will see him in the of fice in the very near future. MAURILIO/MICHELLE Voice ID: [id number] Report ID: [id number]
== END 2021-02-22 10:39 | disposition home or self-care (01) | DRG 190 ==
LOC: ER 07:00 → ERHOLD 12:40 → 2ND 20:58
PROVIDERS: ADMIT Internal Medicine; ATTEND Internal Medicine
DX: J44.1 Chronic obstructive pulmonary disease with (acute) exacerbation (principal); I50.31 Acute diastolic (congestive) heart failure; J84.10 Pulmonary fibrosis, unspecified; I48.91 Unspecified atrial fibrillation; E11.9 Type 2 diabetes mellitus without complications; I11.0 Hypertensive heart disease with heart failure; Z79.01 Long term (current) use of anticoagulants; Z87.891 Personal history of nicotine dependence; Z20.822 Contact with and (suspected) exposure to COVID-19
CPT/HCPCS: 36415; 71045; 71260; 80048; 80061; 80076; 81003; 81015; 82728; 82947; 83036; 83605; 83690; 83880; 84145; 84484; 85025; 85379; 85610; 85730; 86140; 87040; 87804; 93005; 94760; 96361; 96365; 96375; 99285; J0456; J0696; J1940; J2930; J7030; J7050; J7512; Q9967; U0003

== ENCOUNTER 2021-06-01 08:26 | Emergency (ER) | payer OTHER ==
[2021-06-01] MEDS ORDERED: METHOCARBAMOL 1,000 MG/10 ML VIAL IV ONE (09:33)
[2021-06-01] MEDS ORDERED: NA CHLORIDE 0.9% 100 ML ONE (09:33)
[2021-06-01 09:39] LABS: Absolute Lymphocytes (CBC) 0.6 K/uL (0.7-4.9); Basophils % 1.7 % (0-1.3); Hematocrit 45.7 % (39.6-49.0); Lymphocytes % 4.8 % (15.3-44.8); MPV 7.7 fL (7.6-11.3); RBC Red Blood Cell Count 4.89 M/uL (4.33-5.43)
[2021-06-01 09:46] LABS: Potassium 3.9 mmol/L (3.5-5.1)
[2021-06-01 10:31] LABS: Urine Blood Negative (Negative); Urine Glucose Negative (Negative); Urine Protein Negative (Negative); Urine pH 5.5 (5.0-7.0)
[2021-06-01 10:32] LABS: Blood Morphology Comment NOT SEEN (NOT SEEN); Platelet Estimate ADEQ
--- NOTE | 2021-06-01 10:38 | RAD REPORT ---
EXAM DESCRIPTION: CT - Abdomen Pelvis W Contrast - 06/01/2021 10:12 am CLINICAL HISTORY: Left flank pain;Abd pain COMPARISON: Thorax W/ Con dated 02/21/2021 TECHNIQUE: Biphasic, helical CT imaging of the abdomen and pelvis was performed following 100 ml non -ionic IV contrast. No oral contrast administered. All CT scans are performed using dose optimization technique as appropriate and may include automated exposure control or mA/KV adjustment according to patient size. FINDINGS: Prominent interstitial fibrotic changes are present along with bronchiectasis at each lung base. No pneumothorax or pleural effusion. Lung base findings are not clearly different from the Aug ust 4 study. Heart size is prominent with no pericardial thickening or effusion. No focal liver lesion. No portal vein abnormality identified. Spleen and pancreas show no suspicious findings. Granulomatous calcifications are seen in the spleen. Several small gallstones are present. No acute gallbladder finding. No biliary tree abnormality. Symmetric renal function is seen with no hydronephrosis or suspicious renal mass. No pyelonephritis o r acute parenchymal process. No bladder abnormalities. No adrenal abnormalities. No stomach or small bowel abnormality. Moderate stool volume is present throughout the colon. No appe ndicitis findings. There is diverticulosis without diverticulitis. Moderate stool volume distends the rectum. No free air, free fluid or inflammatory stranding. No mass or bulky lymphadenopathy. Small bilateral fat filled inguinal hernias are present. Disc and bone degenerative changes are present. No acute finding identifiable. IMPRESSION: Contrast enhanced CT abdomen and pelvis showing no acute or emergent finding. Patient has cholelithiasis without cholecystitis or biliary obstructive findings. Nonacute findings are detailed in the body of the report.
--- NOTE | 2021-06-01 11:30 | EDPHYS ---
Physician Documentation [facility] Name: Christian Cintron Age: 70 yrs Sex: Male : 1950 Arrival Date: 06/01/2021 Time: 08:28 Bed 6 Private MD: Wu Rm V ED Physician Kevin Baron HPI: 06/01 09:01 This 70 yrs old Male presents to ER via Ambulatory with complaints of Hip kdr Pain. 09:01 The patient or guardian reports pain, Patient has pain in his left flank and left kdr pelvic crest. that occurred at home, sustained from unknown reason, There is no obvious deformity, The patient is able to self ambulate. The patient is able to bear their full body weight. There is no radiation of the patient's discomfort. The complaints affect the anterior aspect of left lateral abdomen and posterior aspect of left lateral abdomen. Onset: The symptoms/episode began/occurred suddenly, 1 week(s) ago. Modifying factors: The symptoms are alleviated by nothing, the symptoms are aggravated by nothing. Associated signs and symptoms: Loss of consciousness: the patient experienced no loss of consciousness, Pertinent positives: Left iliac crest pain. Severity of symptoms: At their worst the symptoms were mild, moderate, just prior to arrival, in the emergency department the symptoms are unchanged. The patient has not experienced similar symptoms in the past. The patient has not recently seen a physician. Patient states that whenever he turns to the right or coughs or takes a deep breath, he has sharp jabbing pain in the left iliac crest area. It is nonradiating. Historical: - Allergies: 08:44 No Known Drug Allergies; tw2 - Home Meds: 08:44 Spiriva Respimat 1.25 mcg/actuation inhalation mist once daily [Active]; metoprolol tw2 succinate 25 mg Oral Tb24 once daily [Active]; losartan 25 mg Oral tab once daily [Active]; gabapentin 300 mg Oral cap 3 times per day [Active]; Eliquis 5 mg Oral tab 2 times per day [Active]; atorvastatin 80 mg Oral tab once daily [Active]; 08:46 metformin 500 mg oral tab 1 tab 2 times per day [Active]; tw2 - PMHx: 08:44 Atrial Fib; Diabetes - NIDDM; Hyperlipidemia; Hypertension; COPD; tw2 08:46 Home O2 \T\2L; tw2 - Immunization history:: Adult Immunizations. - Social history:: Smoking status: . ROS: 09:01 Constitutional: Negative for fever, chills, and weight loss, Eyes: Negative for injury, kdr pain, redness, and discharge, ENT: Negative for injury, pain, and discharge, Neck: Negative for injury, pain, and swelling, Cardiovascular: Negative for chest pain, palpitations, and edema, Respiratory: Negative for shortness of breath, cough, wheezing, and pleuritic chest pain, Abdomen/GI: Negative for abdominal pain, nausea, vomiting, diarrhea, and constipation, Back: Negative for injury and pain, : Negative for injury, bleeding, discharge, and swelling, MS/Extremity: Negative for injury and deformity, patient only has pain in the left iliac crest area with movement Skin: Negative for injury, rash, and discoloration, Neuro: Negative for headache, weakness, numbness, tingling, and seizure activity. Psych: Negative for depression, anxiety, suicide ideation, homicidal ideation, and hallucinations, Allergy/Immunology: Negative for hives, rash, and allergies, Endocrine: Negative for neck swelling, polydipsia, polyuria, polyphagia, and marked weight changes, Hematologic/Lymphatic: Negative for swollen nodes, abnormal bleeding, and unusual bruising. Exam: 09:01 Constitutional: This is a well developed, well nourished patient who is awake, alert, kdr and in no acute distress. Head/Face: Normocephalic, atraumatic. Eyes: Pupils equal round and reactive to light, extra-ocular motions intact. Lids and lashes normal. Conjunctiva and sclera are non-icteric and not injected. Cornea within normal limits. Periorbital areas with no swelling, redness, or edema. Neck: Trachea midline, no thyromegaly or masses palpated, and no cervical lymphadenopathy. Supple, full range of motion without nuchal rigidity, or vertebral point tenderness. No Meningismus. Chest/axilla: Normal chest wall appearance and motion. Nontender with no deformity. No lesions are appreciated. Cardiovascular: Regular rate and rhythm with a normal S1 and S2. No gallops, murmurs, or rubs. Normal PMI, no JVD. No pulse deficits. Respiratory: Lungs have equal breath sounds bilaterally, clear to auscultation and percussion. No rales, rhonchi or wheezes noted. No increased work of breathing, no retractions or nasal flaring. Abdomen/GI: Soft, non-tender, with normal bowel sounds. No distension or tympany. No guarding or rebound. No evidence of tenderness throughout. Back: No spinal tenderness. No costovertebral tenderness. Full range of motion. Skin: Warm, dry with normal turgor. Normal color with no rashes, no lesions, and no evidence of cellulitis. MS/ Extremity: Pulses equal, no cyanosis. Neurovascular intact. Full, normal range of motion. Neuro: Awake and alert, GCS 15, oriented to person, place, time, and situation. Cranial nerves II-XII grossly intact. Motor strength 5/5 in all extremities. Sensory grossly intact. Cerebellar exam normal. Normal gait. Psych: Awake, alert, with orientation to person, place and time. Behavior, mood, and affect are within normal limits. Vital Signs: 08:46 BP 141 / 97; Pulse 85; Resp 17; Temp 98.4; Pulse Ox 92% on 2 lpm NC; Weight 88.45 kg; jl7 Height 6 ft. (182.88 cm); Pain 10/10; 09:42 BP 115 / 96; Pulse 62; Resp 15; Pulse Ox 98% ; jl7 11:02 BP 141 / 81; Pulse 61; Resp 17; Pulse Ox 99% on 2 lpm NC; tw2 08:46 Body Mass Index 26.45 (88.45 kg, 182.88 cm) jl7 MDM: 11:30 Patient medically screened. kdr 11:31 Data reviewed: vital signs, nurses notes, lab test result(s), radiologic studies. kdr Counseling: I had a detailed discussion with the patient and/or guardian regarding: the historical points, exam findings, and any diagnostic results supporting the discharge/admit diagnosis, lab results, radiology results, the need for outpatient follow up. ED course: The patient was stable in the ED. his symptoms improved. He was happy with the care provided and the plan for discharge and follow-up. 06/01 08:55 Order name: CBC with Diff kdr 06/01 08:55 Order name: Chem 7 kdr 06/01 08:55 Order name: CBC with Automated Diff; Complete Time: 10:47 EDMS 06/01 08:55 Order name: Basic Metabolic Panel; Complete Time: 10:20 EDMS 06/01 10:30 Order name: Urine Dipstick-Ancillary; Complete Time: 10:47 EDMD 06/01 10:32 Order name: Manual Differential; Complete Time: 10:47 EDMD 06/01 08:55 Order name: Urine Dipstick-Ancillary (obtain specimen); Complete Time: 10:29 kdr 06/01 08:55 Order name: CT Abd/Pelvis - IV Contrast Only; Complete Time: 11:29 kdr Administered Medications: 09:47 Drug: Robaxin (methocarbamol) 1 grams Route: IVPB; Infused Over: 1 hrs; Site: right ll3 forearm; 11:03 Follow up: IV Status: Completed infusion; IV Intake: 100ml ll3 11:42 Follow up: Response: No adverse reaction; Pain is decreased ll3 Disposition Summary: 06/01/21 11:30 Discharge Ordered Location: Home kdr Problem: new kdr Symptoms: have improved kdr Condition: Stable kdr Diagnosis - Left flank, musculoskeletal pain kdr Followup: kdr - With: uW Rm MD - When: 2 - 3 days - Reason: If symptoms return, Further diagnostic work-up, Recheck today's complaints, Continuance of care, Re-evaluation by your physician Discharge Instructions: - Discharge Summary Sheet kdr - Musculoskeletal Pain kdr Forms: - Medication Reconciliation Form kdr - Thank You Letter kdr Prescriptions: - Cyclobenzaprine 5 mg Oral Tablet - take 1 tablet by ORAL route 3 times per day As needed; 15 tablet; Refills: 0, kdr Product Selection Permitted Signatures: Dispatcher [employer] [facility] Kevin Baron MD MD kdr Scarlet Boudreaux RN RN tw2 Darlyn Noonan RN RN ll3 Corrections: (The following items were deleted from the chart) 08:47 08:44 Home Meds: metformin 1,000 mg Oral tab daily after the evening meal; tw2 tw2
--- NOTE | 2021-06-01 11:30 | ER ---
Nurse's Notes [facility] Name: Christian Cintron Age: 70 yrs Sex: Male : 1950 Arrival Date: 06/01/2021 Time: 08:28 Bed 6 Private MD: Wu Rm V Diagnosis: Left flank, musculoskeletal pain Presentation: 06/01 08:46 Chief complaint: Patient states: Lip hip pain x 3 days, "Pinching", does not radiate, jl7 denies trauma. Coronavirus screen: At this time, the client does not indicate any symptoms associated with coronavirus-19. Ebola Screen: No symptoms or risks identified at this time. Initial Sepsis Screen: Does the patient meet any 2 criteria? No. Patient's initial sepsis screen is negative. Does the patient have a suspected source of infection? No. Patient's initial sepsis screen is negative. Risk Assessment: Do you want to hurt yourself or someone else? Patient reports no desire to harm self or others. Onset of symptoms was May 29, 2021. Care prior to arrival: None. 08:46 Method Of Arrival: Ambulatory jl7 08:46 Acuity: BEATRIZ 4 jl7 Triage Assessment: 08:46 General: Appears in no apparent distress. uncomfortable, Behavior is calm, cooperative, jl7 appropriate for age. Pain: Complains of pain in left hip Pain does not radiate. Pain currently is 10 out of 10 on a pain scale. Quality of pain is described as pinching, Pain began 2-3 days ago. Is continuous. Historical: - Allergies: 08:44 No Known Drug Allergies; tw2 - Home Meds: 08:44 Spiriva Respimat 1.25 mcg/actuation inhalation mist once daily [Active]; metoprolol tw2 succinate 25 mg Oral Tb24 once daily [Active]; losartan 25 mg Oral tab once daily [Active]; gabapentin 300 mg Oral cap 3 times per day [Active]; Eliquis 5 mg Oral tab 2 times per day [Active]; atorvastatin 80 mg Oral tab once daily [Active]; 08:46 metformin 500 mg oral tab 1 tab 2 times per day [Active]; tw2 - PMHx: 08:44 Atrial Fib; Diabetes - NIDDM; Hyperlipidemia; Hypertension; COPD; tw2 08:46 Home O2 \\T\\2L; tw2 - Immunization history:: Adult Immunizations. - Social history:: Smoking status: . Screenin:41 Abuse screen: Denies threats or abuse. Nutritional screening: No deficits noted. tw2 Tuberculosis screening: No symptoms or risk factors identified. Fall Risk Secondary diagnosis (15 points) ambulatory aide - cane. Ambulatory Aid- Crutches/Cane/Walker (15 pts). Assessment: 08:53 General: Appears in no apparent distress. uncomfortable, Behavior is calm, cooperative. ll3 Pain: Complains of pain in left hip Pain radiates to left gluteal fold Pain currently is 10 out of 10 on a pain scale. Quality of pain is described as stabbing, Pain began 2-3 days ago. Is continuous, Alleviated by rest, Aggravated by repositioning, weight bearing. Neuro: Level of Consciousness is awake, alert, obeys commands, Oriented to person, place, time, situation, Speech is normal, Facial symmetry appears normal. Cardiovascular: Patient's skin is warm and dry. Respiratory: Airway is patent Trachea midline Respiratory effort is even, unlabored, Respiratory pattern is regular, symmetrical. Derm: Skin is intact, Skin is pink, warm \\T\\ dry. 08:53 Musculoskeletal: Range of motion: Pain with movement Tenderness is absent. ll3 11:02 Reassessment: Patient appears in no apparent distress at this time. No changes from tw2 previously documented assessment. Patient and/or family updated on plan of care and expected duration. Pain level reassessed. Patient is alert, oriented x 3, equal unlabored respirations, skin warm/dry/pink. 11:45 Reassessment: felling better pain has decreased to 2/10. ll3 Vital Signs: 08:46 BP 141 / 97; Pulse 85; Resp 17; Temp 98.4; Pulse Ox 92% on 2 lpm NC; Weight 88.45 kg; jl7 Height 6 ft. (182.88 cm); Pain 10/10; 09:42 BP 115 / 96; Pulse 62; Resp 15; Pulse Ox 98% ; jl7 11:02 BP 141 / 81; Pulse 61; Resp 17; Pulse Ox 99% on 2 lpm NC; tw2 08:46 Body Mass Index 26.45 (88.45 kg, 182.88 cm) jl7 ED Course: 08:28 Patient arrived in ED. am2 08:29 Wu Rm MD is Private Physician. am2 08:41 Scarlet Boudreaux, RN is Primary Nurse. tw2 08:41 Arm band placed on. tw2 08:41 Bed in low position. Call light in reach. Pulse ox on. NIBP on. tw2 08:45 Kevin Baron MD is Attending Physician. kdr 08:48 Triage completed. jl7 08:53 Darlyn Noonan, RN is Primary Nurse. ll3 10:12 CT Abd/Pelvis - IV Contrast Only In Process Unspecified. EDMS 11:29 Wu Rm MD is Referral Physician. kdr 11:43 No provider procedures requiring assistance completed. IV discontinued, intact, ll3 bleeding controlled, No redness/swelling at site. Pressure dressing applied. Administered Medications: 09:47 Drug: Robaxin (methocarbamol) 1 grams Route: IVPB; Infused Over: 1 hrs; Site: right ll3 forearm; 11:03 Follow up: IV Status: Completed infusion; IV Intake: 100ml ll3 11:42 Follow up: Response: No adverse reaction; Pain is decreased ll3 Intake: 11:03 IV: 100ml; Total: 100ml. ll3 Outcome: 11:30 Discharge ordered by . kdr 11:45 Discharged to home ambulatory. ll3 11:45 Condition: improved 11:45 Discharge instructions given to patient, Instructed on discharge instructions, follow up and referral plans. medication usage, Demonstrated understanding of instructions, follow-up care, medications, Prescriptions given X 1. 11:49 Patient left the ED. ll3 Signatures: Dispatcher [employer] [facility] Kevin Baron MD MD kdr Scarlet Boudreaux, SARAH RN tw2 Shanice Corona RN RN jl7 Yanely Ac am2 Darlyn Noonan, SARAH RN ll3 Corrections: (The following items were deleted from the chart) 08:47 08:44 Home Meds: metformin 1,000 mg Oral tab daily after the evening meal; tw2 tw2
[2021-06-01 12:15] VITALS: TEMP 98.7
[2021-06-01 12:16] VITALS: BP 134/78; O2SAT 100
--- OUTSIDE RECORDS SUMMARY | 2021-06-02 22:30 | XMS REPORT | Continuity of Care Document ---
:1950 Author Organization [facility] t Address [address] [place] [address] Care Team Providers Name Role Phone Sujey NEWBY Primary Care Physician Junaid Guerrero Attending Clinician Unavailable Doctor, Ilir Attending Clinician Unavailable Junaid Guerrero Admitting Clinician Unavailable Physician, Primary or Family Admitting Clinician Unavailabl e UNDEFINED Admitting Clinician Unavailable Payers Payer Name Policy Type Policy Number Effective Date Expiration Date S ource Problems This patient has no known problems. Allergies, Adverse Reactions, Alerts Allergy Allergy Status Severity Reaction(s) Onset Inactive Treating Comm ents Source Name Type Date Date Clinician No Known DA Active U 2020-0 [facility] No Known DA Active U 2020-0 [facility] No Known DA Active U 2020-0 [facility] No Known DA Active U 2020-0 [facility] 04[facility] No Known DA Active U 2020-0 [facility] No Known DA Active U 2020-0 [facility] 08[facility] No Known DA Active U 2020-0 [facility] 08[facility]05 [place] [facility] No Known DA Active U 2020-0 [facility] No Known DA Active U 2018-0 [facility]14 [place] [facility] No Known DA Active U 2018-0 [facility] [place] [facility] 00[facility] Social History Social Habit Start Date Stop Date Quantity Comments Source Sex Assigned At [birth year] [facility] 00:00:00 00:00:00 Smoking Status Start Date Stop Date Source Unknown if ever smoked [facility] Medications This patient has no known medications. Procedures This patient has no known procedures. Plan of Care Planned Activity Planned Date Details Comments Source Future Scheduled Test Hepatitis C screening [facility] (procedure) [code = 785259577] Future Scheduled Test COLONOSCOPY SCREENING [facility] [code = COLONOSCOPY SCREENING] Future Scheduled Test SHINGLES VACCINES (#1) [facility] [code = SHINGLES VACCINES (#1)] Future Scheduled Test 65+ PNEUMOCOCCAL Me [facility] VACCINE (1 of 1 - PPSV23) [code = 65+ PNEUMOCOCCAL VACCINE (1 of 1 - PPSV23)] Future Scheduled Test INFLUENZA VACCINE [code [facility] = INFLUENZA VACCINE] Future Scheduled Test COVID-19 VACCINE (1) [facility] [code = COVID-19 VACCINE (1)] Encounters Start End Encounter Admission Attending Care Care Encounter Source Date/Time Date/Time Type Type Clinicians Facility Department ID 2021-02-16 2021-02-16 Outpatient EL BUDDY GuerreroTO PAIN [id number] -20 [facility] 10:41:00 10:41:00 Albino [id number] [place] [facility] 2020-12-15 2020-12-15 Outpatient BUDDY GuerreroTO PAIN [id number] -20 [facility] 13:15:00 13:15:00 Albino [id number] [place] [facility] 2020-04-19 2020-04-19 Outpatient Doctor HCATO PAIN [id number] -20 [facility] 12:30:00 12:30:00 [facility] [place] [facility] 2019-08-27 2019-08-27 Outpatient Doctor HCATO PAIN [id number] -20 [facility] 07:00:00 07:00:00 Junior [id number] [place] [facility] 2019-08-06 2019-08-06 Outpatient Doctor, HCATO PAIN [id number] -20 [facility] 05:00:00 05:00:00 Junior [id number] [place] [facility] 2019-06-11 2019-06-11 Outpatient BL MED [address] [facility] 05:29:00 05:29:00 Results Test Description Test Time Test Comments Results Result [facility] e Comments - XR FLUORO FOR 2021-02-16 SPINE INJ 20:46:00 [facility] [place] [facility] : 1950 Sex: M Patient Name: ADALBERTO COOL Unit No: [id number] EXAMS: CPT CODE: [id number] XR FLUORO FOR SPINE INJ 80157 LUMBAR EPIRADICULAR INJECTION REFERRAL PHYSICIAN: None PREOPERATIVE [...] Image: Image 1 Image: Image 2 at 2045 Reported and signed by: Albino Guerrero M.D. [facility] NAME: ADALBERTO COOL [address] [facility] PHYS: Albino Michael MD [place], [place] [address] : 1950 AGE: 70 SEX: M LOC: CEZAR PHONE #: [phone] EXAM DATE: 02/16/2021 STATUS: [facility] [place] #: [phone] RAD #: D/C DT PAGE 1 Signed Report (CONTINUED) Patient Name: ADALBERTO COOL Unit No: [id number] EXAMS: CPT CODE: [id number] XR FLUORO FOR SPINE INJ 52498 <Continued> CC: Technologist: Tamiko Brennan(R) Transcribed D/ (2045) [facility]: AD[facility]OL [address] [facility] PHYS: Albino Michael MD [place], [place] [address] : 1950 AGE: 70 SEX: M LOC: CEZAR PHONE #: [phone] EXAM DATE: 02/16/2021 STATUS: [facility] [place] #: [phone] RAD #: D/C DT PAGE 2 Signed Report Patient Name: ADALBERTO COOL Unit No: [id number] EXAMS: CPT CODE: [id number] XR FLUORO FOR SPINE INJ 84025 <Continued> Orig Print D/T: S: 02/16/2021 (2049) [place] [facility] NAME: ADALBERTO COOL [address] [facility] PHYS: Albino Michael MD [place], [place] [address] : 1950 AGE: 70 SEX: M LOC: GageYURIDIA PHONE #: [phone] EXAM DATE: 02/16/2021 STATUS: [facility] [place] #: [phone] RAD #: D/C DT PAGE 3 Signed Report GLUBED 2021-02-16 14:15:00 Test Item Value Reference Range Interpretation Comme nts GLUBED (test code = GLUBED) 90 mg/dL 60-125 N [id number] 13:01:00 Test Item Value Reference Range Interpretation Comments GLUBED (test code = GLUBED) 111 mg/dL 60-125 N [id number] 09:11:00 Test Item Value Reference Range Interpretation Comments GLUBED (test code = GLUBED) 134 mg/dL 60-125 H - XR FLUORO FOR SPINE [id number] 19:17:00 [facility] [place] [facility] : 1950 Sex: M Patient Name: ADALBERTO COOL Unit No: [id number] EXAMS: CPT CODE: [id number] XR FLUORO FOR SPINE INJ 55561 CERVICAL FACET DIAGNOSTIC INJECTION REFERRAL PHYSICIAN: None [...] posterior paravertebral approaches and using standard technique, x40-izrfv needle was inserted into each joint capsule [...] 3 Image: Image 4 Image: Image 5 [place] [facility] NAME: ADALBERTO COOL [address] [facility] PHYS: Albino Michael MD [place], [place] [address] : 1950 AGE: 70 SEX: M LOC: GageYURIDIA PHONE #: [phone] EXAM DATE: 12/15/2020 STATUS: REG [facility] FAX #: [phone] RAD #: D/C DT PAGE 1 Signed Report (CONTINUED) Patient Name: ADALBERTO COOL Unit No: [id number] EXAMS: CPT CODE: [id number] XR FLUORO FOR SPINE INJ 93807 <Continued> at 1917 Reported and signed by: Albino Guerrero M.D. CC: Technologist: Tamiko Brennan(R) Transcribed D/ (1916) [facility] NAME: ADALBERTO COOL [address] [facility] PHYS: Albino Michael MD [place] [address] : 1950 AGE: 70 SEX: M LOC: CEZAR PHONE #: [phone] EXAM DATE: 12/15/2020 STATUS: [facility] [place] #: [phone] RAD #: D/C DT PAGE 2 Signed Report Patient Name: ADALBERTO PASTOR Unit No: [id number] EXAMS: CPT CODE: [id number] XR FLUORO FOR SPINE INJ 92635 <Continued> Orig Print D/T: S: 12/15/2020 (1919) [facility] NAME: ADALBERTO COOL [address] [facility] PHYS: Albino Michael MD [place] [address] : 1950 AGE: 70 SEX: M LOC: CEZAR PHONE #: [phone] EXAM DATE: 12/15/2020 STATUS: [facility] [place] #: [phone] RAD #: D/C DT PAGE 3 Signed ReportGLUBED 2020-12-15 15:00:00 Test Item Value Reference Range Interpretation Comments GLUBED (test code = GLUBED) 105 mg/dL 60-125 N [id number] 10:57:00 Test Item Value Reference Range Interpretation Comments GLUBED (test code = GLUBED) 126 mg/dL 60-125 H - XR FLUORO FOR SPINE [id number] 09:05:00 Patient Name: ADALBERTO COOL Unit No: [id number] EXAMS: CPT CODE: [id number] XR FLUORO FOR SPINE INJ 99777 CERVICAL TRANSFORAMINAL INJECTION REFERRING PHYSICIAN:PREOPERATIVE DIAGNOSIS: Cervical [...] taken to the PACU in good condition. [place] [facility] NAME: ADALBERTO COOL [address] [facility] HYS: DOCWEN - DoctorJunior MD [place], [place] [address] : 1950 AGE: 69 SEX: M LOC: GageYURIDIA PHONE #: [phone] EXAM DATE: 04/19/2020 STATUS: [facility] [place] #: [phone] RAD #: D/C DT PAGE 1 Signed Report(CONTINUED) Patient Name: ADALBERTO COOL Unit No: [id number] EXAMS: CPT CODE: [id number] XR FLUORO FOR SPINE INJ 89783 <Continued> at 0905 Reported and signed by: Junior Chavarria M.D. CC: Technologist: Tamiko Brennan(R) Transcribed D/ (904) Shayan [facility] NAME: ADALBERTO COOL [address] [facility] PHYS: Junior Lind MD [place] [address] : 1950 AGE: 69 SEX: M LOC: CEZAR PHONE #: [phone] EXAM DATE: 04/19/2020 STATUS: [facility] [place] #: [phone] RAD #: D/C DT PAGE 2 Signed Report Patient Name: ADALBERTO COOL Unit No: [id number] EXAMS: CPT CODE: [id number] XR FLUORO FOR SPINE INJ 94463 <Continued> Orig Print D/T: S: 04/19/2020 (0909) [facility] NAME: ADALBERTO COOL MARIANNE [address] [facility] PHYS: Junior Lind MD [place] [address] : 1950 AGE: 69 SEX: M LOC: CEZAR PHONE #: [phone] EXAM DATE: 04/19/2020 STATUS: [facility] [place] #: [phone] RAD #: D/C DT PAGE 3 Signed [id number] 08:53:00 Test Item Value Reference Range Interpretation Comments GLUBED (test code = GLUBED) 109 mg/dL 60-125 N - XR FLUORO FOR SPINE [id number] 10:12:00 Patient Name: ADALBERTO COOL Unit No: [id number] EXAMS: CPT CODE: [id number] XR FLUORO FOR SPINE INJ 48456 LUMBAR TRANSFORAMINAL INJECTION REFERRING PHYSICIAN: PREOPERATIVE DIAGNOSIS: [...] Reported and signed by: Junior Chavarria M.D. [place] [facility] NAME: ADALBERTO COOL [address] [facility] PHYS: DOCUD - Junior Chavarria MD [place], [place] [address] : 1950 AGE: 68 SEX: M LOC: CEZAR PHONE #: [phone] EXAM DATE: 08/27/2019 STATUS: [facility] [place] #: [phone] RAD #: D/C DT PAGE 1 Signed Report (CONTINUED) Patient Name: JOANN COOL Unit No: [id number] EXAMS: CPT CODE: [id number] XR FLUORO FOR SPINE INJ 48882 <Continued> CC: Technologist: Tamiko Brennan(R) Transcribed D/ (101) Shayan [place] [facility] NAME: ADALBERTO COOL [address] [facility] PHYS: COOPER - Junior Chavarria MD [place] [address] : 1950 AGE: 68 SEX: M LOC: CEZAR PHONE #: [phone] EXAM DATE: 08/27/2019 STATUS: [facility] [place] #: [phone] RAD #: D/C DT PAGE 2 Signed Report Patient Name: ADALBERTO COOL Unit No: [id number] EXAMS: CPT CODE: [id number] XR FLUORO FOR SPINE INJ 30498 <Continued> Orig Print D/T: S: 08/27/2019 (631)[facility] NAME: ADALBERTO COOL [address] [facility] PHYS: COOPER - Junior Chavarria MD [place] [address] : 1950GE: 68 SEX: M LOC: CEZAR PHONE #: [phone] EXAM DATE: 08/27/2019 STATUS: REG [employer] FAX #: [phone] RAD #: D/C DT PAGE 3 Signed [id number] 09:10:00 Test Item Value Reference Range Interpretation Comments GLUBED (test code = GLUBED) 93 mg/dL 60-125 N [id number] 06:51:00 Test Item Value Reference Range Interpretation Comments GLUBED (test code = GLUBED) 113 mg/dL 60-125 N - XR FLUORO FOR SPINE [id number] 10:42:00 Patient Name: ADALBERTO COOL Unit No: [id number] EXAMS: CPT CODE: [id number] XR FLUORO FOR SPINE INJ 18209 CERVICAL TRANSFORAMINAL INJECTION REFERRING PHYSICIAN:PREOPERATIVE DIAGNOSIS: Cervical [...] taken to the PACU in good condition. [place] [facility] NAME: ADALBERTO COOL [address] [facility] PHYS: DOCUD - Doctor,Junior Hazel MD [place], [place] [address] : 1950 AGE: 68 SEX: M LOC: CEZAR PHONE #: [phone] EXAM DATE: 08/06/2019 STATUS: [facility] [place] #: [phone] RAD #: D/C DT PAGE 1 Signed Report (CONTINUED) Patient Name: ADALBERTO COOL Unit No: [id number] EXAMS: CPT CODE: [id number] XR FLUORO FOR SPINE INJ 32474 <Continued> [id number] Reported and signed by: Junior Chavarria M.D. CC: Technologist: Tamiko Brennan(R) Transcribed D/ (1042) DannyUVD [place] [facility] NAME: ADALBERTO COOL [address] [facility] PHYS: Junior Lind MD [place] [address] : 1950 AGE: 68 SEX: M LOC: CEZAR PHONE #: [phone] EXAM DATE: 08/06/2019 STATUS: [facility] [place] #: [phone] RAD #: D/C DT PAGE 2 Signed Report Patient Name: ADALBERTO COOL Unit No: [id number] EXAMS: CPT CODE: [id number] XR FLUORO FOR SPINE INJ 65025 <Continued> Orig Print D/T: S: 08/06/2019 (1045) [facility] NAME: ADALBERTO COOL [address] [facility] PHYS: Junior Lind MD [place] [address] : 1950 AGE: 68 SEX: M LOC: CEZAR PHONE #: [phone] DATE: 08/06/2019 STATUS: [facility] [place] #: [phone] RAD #: D/C DT PAGE 3 Signed ReportGLUBED 2019-08-06 09:55:00 Test Item Value Reference Range Interpretation Comments GLUBED (test code = GLUBED) 126 mg/dL 60-125 H [id number] 08:53:00 Test Item Value Reference Range Interpretation Comments GLUBED (test code = GLUBED) 134 mg/dL 60-125 H
== END 2021-06-01 11:49 | disposition home or self-care (01) ==
LOC: ER 08:26
DX: R10.9 Unspecified abdominal pain (principal); M79.18 Myalgia, other site
CPT/HCPCS: 96365; 85025; 80048; 36415; 81003; 74177; 99284; Q9967; J2800

== ENCOUNTER 2022-02-27 09:47 | Inpatient (IN) | payer OTHER ==
--- OUTSIDE RECORDS SUMMARY | 2022-02-27 09:50 | XMS REPORT | Continuity of Care Document ---
:1950 Author Organization [facility] [place] [facility] t Address [address] [place] [address] Care Team Providers Name Role Phone Wu Rm MD Primary Care Physician Albino Guerrero Attending Clinician Unavailable Doctor, Junior Hazel Attending Clinician Unavailable Albino Guerrero Admitting Clinician Unavailable Physician, No Primary or Family Admitting Clinician Unavaila ble UNDEFINED Admitting Clinician Unavailable Payers Payer Name [...] DA Active U 2020-0 [facility] [place] [facility] [...] Hospita l No Known DA Active U 2017-0 [facility] [place] [facility] Social History Social Habit Start Date Stop Date Quantity Comments Source Sex Assigned At [birth year] [facility] 00:00:00 00:00:00 Smoking Status Start Date Stop Date Source Unknown if ever smoked [facility] Medications This patient has no known medications. Procedures This patient has no known procedures. Plan of Care Planned Activity Planned Date Details Comments Source Future Scheduled Test Hepatitis C screening [facility] (procedure) [code = 282383100] Future Scheduled Test COLONOSCOPY SCREENING [facility] [code = COLONOSCOPY SCREENING] Future Scheduled Test SHINGLES VACCINES (#1) [facility] [code = SHINGLES VACCINES (#1)] Future Scheduled Test 65+ PNEUMOCOCCAL [facility] VACCINE (1 of 1 - PPSV23) [code = 65+ PNEUMOCOCCAL VACCINE (1 of 1 - PPSV23)] Future Scheduled Test INFLUENZA VACCINE [code [facility] = INFLUENZA VACCINE] Future Scheduled Test COVID-19 VACCINE (1) [facility] [code = COVID-19 VACCINE (1)] Encounters Start End Encounter Admission Attending Care Care Encounter Source Date/Time Date/Time Type Type Clinicians Facility Department ID 2021-02-16 2021-02-16 Outpatient EL BUDDY GuerreroTO PAIN [id number] -20 [facility] 10:41:00 10:41:00 Albino [id number] [place] [facility] 2020-12-15 2020-12-15 Outpatient BUDDY GuerreroTO PAIN [id number] -20 [facility] 13:15:00 13:15:00 Albino [id number] [place] [facility] 2020-04-19 2020-04-19 Outpatient DoctorBUDDYTO PAIN [id number] -20 [facility] 12:30:00 12:30:00 Junior [place] [facility] 2019-08-27 2019-08-27 Outpatient Doctor HCATO PAIN [id number] -20 [facility] 07:00:00 07:00:00 Junior [id number] [place] [facility] 2019-08-06 2019-08-06 Outpatient Doctor, HCATO PAIN [id number] -20 [facility] 05:00:00 05:00:00 Junior [id number] [place] [facility] 2019-06-11 2019-06-11 Outpatient BL MED [address] [facility] 05:29:00 05:29:00 Results Test Description Test Time Test Comments Results Result [facility] e Comments - XR FLUORO FOR 2021-02-16 SPINE INJ 20:46:00 [facility] : 1950 Sex: M Patient Name: ADALBERTO CINTRON Unit No: [id number] EXAMS: CPT CODE: [id number] XR FLUORO FOR SPINE INJ 66734 LUMBAR EPIRADICULAR INJECTION REFERRAL PHYSICIAN: None PREOPERATIVE [...] Reported and signed by: Albino Guerrero M.D. [facility] NAME: ADALBERTO CINTRON [address] [facility] PHYS: Albino Michael MD [place], [place] [address] : 1950 AGE: 70 SEX: M LOC: CEZAR PHONE #: [phone] EXAM DATE: 02/16/2021 STATUS: REG [facility] FAX #: [phone] RAD #: D/C DT PAGE 1 Signed Report (CONTINUED) Patient Name: ADALBERTO CINTRON Unit No: [id number] EXAMS: CPT CODE: [id number] XR FLUORO FOR SPINE INJ 27990 <Continued> CC: Technologist: Tamiko Brennan(R) Transcribed D/ (2045) [facility]: ADALBERTO CINTRONH [address] [facility] PHYS: Albino Michael MD [place], [place] [address] : 1950 AGE: 70 SEX: M LOC: CEZAR PHONE #: [phone] EXAM DATE: 02/16/2021 STATUS: REG [facility] FAX #: [phone] RAD #: D/C DT PAGE 2 Signed Report Patient Name: ADALBERTO CINTRON Unit No: [id number] EXAMS: CPT CODE: [id number] XR FLUORO FOR SPINE INJ 33432 <Continued> Orig Print D/T: S: 02/16/2021 (2049) [facility] NAME: ADALBERTO CINTRON [address] [facility] [address] PHYS: Albino Michael MD [place] [address] : 1950 AGE: 70 SEX: M LOC: CEZAR PHONE #: [phone] EXAM DATE: 02/16/2021 STATUS: REG [facility] FAX #: [phone] RAD #: D/C DT PAGE 3 Signed Report GLUBED 2021-02-16 14:15:00 Test Item Value Reference Range Interpretation Comme nts GLUBED (test code = GLUBED) 90 mg/dL 60-125 N [id number] 13:01:00 Test Item Value Reference Range Interpretation Comments GLUBED (test code = GLUBED) 111 mg/dL 60-125 N [id number] 09:11:00 Test Item Value Reference Range Interpretation Comments GLUBED (test code = GLUBED) 134 mg/dL 60-125 H - XR FLUORO FOR SPINE [id number] 19:17:00 [facility] 1950 Sex: M Patient Name: ADALBERTO CINTRON Unit No: [id number] EXAMS: CPT CODE: [id number] XR FLUORO FOR SPINEINJ 31746 CERVICAL FACET DIAGNOSTIC INJECTION REFERRAL PHYSICIAN: None [...] informed consent and IV access, with no contraindicationsto proceeding, the patient was taken to the operating room and placed in a prone position with all extremities padded and appropriate monitors placed. The patient was sterilely prepped and draped over the cervical spine. Using fluoroscopic visualization the insertion sites were marked for a posterior paravertebral approaches and using standard technique, a 26-gauge needle was inserted into each jointcapsule without paresthesias. Aspiration was negative. Isovue-300 contrast [...] condition. Image: Image 1 Image: Image 2 Image: Image 3 Image: Image 4 Image: Image 5 [facility] NAME: ADALBERTO CINTRON [address] [facility] PHYS: Albino Michael MD [place], [place] [address] : 1950 AGE: 70 SEX: M LOC: GageYURIDIA PHONE #: [phone] EXAM DATE: 12/15/2020 STATUS: REG [facility] FAX #: [phone] RAD #: D/C DT PAGE 1 Signed Report (CONTINUED) Patient Name: ADALBERTO CINTRON Unit No: [id number] EXAMS: CPT CODE: [id number] XR FLUORO FOR SPINE INJ 02671 <Continued> at 1917 Reported and signed by: Albino Guerrero M.D. CC: Technologist: Tamiko Brennan(R) Transcribed D/ (1916) [facility] NAME: ADALBERTO CINTRON [address] [facility] PHYS: Albino Michael MD [place] [address] : 1950 AGE: 70 SEX: M LOC: CEZAR PHONE #: [phone] EXAM DATE: 12/15/2020 STATUS: REG [facility] FAX #: [phone] RAD #: D/C DT PAGE 2 Signed Report Patient Name: ADALBERTO CINTRONt No: [id number] EXAMS: CPT CODE: [id number] XR FLUORO FOR SPINE INJ 42838 <Continued> Orig Print D/T: S: 12/15/2020 (1919) [facility] NAME: ADALBERTO CINTRON [address] [facility] PHYS: Albino Michael MD [place] [address] : 1950 AGE: 70 SEX: M LOC: CEZ[facility] PHONE #: [phone] EXAM DATE: 12/15/2020 STATUS: REG [facility] FAX #: [phone] RAD #: D/C DT PAGE 3 Signed [id number] 15:00:00 Test Item Value Reference Range Interpretation Comments GLUBED (test code = GLUBED) 105 mg/dL 60-125 N [id number] 10:57:00 Test Item Value Reference Range Interpretation Comments GLUBED (test code = GLUBED) 126 mg/dL 60-125 H - XR FLUORO FOR SPINE [id number] 09:05:00 Patient Name: ADALBERTO CINTRON Unit No: [id number] EXAMS: CPT CODE: [id number] XR FLUORO FOR SPINE INJ 39603 CERVICAL TRANSFORAMINAL INJECTION REFERRING PHYSICIAN: PREOPERATIVE DIAGNOSIS: Cervical radiculitis POSTOPERATIVE DIAGNOSIS: Cervical radiculopathy PROCEDURES PERFORMED: Fluoroscopically guided needle localization of the right C7, right C6 spinal nerves with transforaminal epidural steroidinjection/injections. 2. Transforaminal epidurogram/epidurograms at right C7, right C6 FINDINGS: Poor filling right C7, right C6. Concordant provocation right C7 arm. Pain relief- 100%. ANTIBIOTICS:Cefazolin ESTIMATED BLOOD LOSS: Minimal ANESTHESIA: (TIVA [...] position on the pedicle. Then, 0.5 ml ofIsovue-300 contrast was injected to produce the epidurograms. No paresthesias were elicited with needle insertion or injection and there were no signs of intravascular or intrathecal uptake. Then, 0.5 ml of 4% lidocaine was injected as a test dose with no signs of intravascular or intrathecal uptake. Next, 10 mg of Decadron was injected incrementally with frequent negative aspirations.Each subsequentcervical nerve root sleeve was done with the same technique and medications were used.There were no signs of intravascular or intrathecal uptake. The patient's vital signs remained stable. The patient was taken to the PACU in good condition. [facility] NAME: ADALBERTO CINTRONH [address] PHYS: COOPER - Doctor,Junior Hazel MD [place], [place] [address] : 1950 AGE: 69 SEX: M LOC: CEZAR PHONE #: [phone] EXAM DATE: 04/19/2020 STATUS: REG [facility] FAX #: [phone] RAD #: D/C DT PAGE 1 Signed Report (CONTINUED) Patient Name: ADALBERTO CINTRONH Unit No: [id number] EXAMS: CPT CODE: [id number] XR FLUORO FOR SPINE INJ 55417 <Continued> at 0905 Reported and signed by: Junior Chavarria M.D. CC: Technologist: Tamiko Brennan(R) Transcribed D/ (904) [facility] NAME: ADALBERTO CINTRON [address] [facility] PHYS: Junior Lind MD [place] [address] : 1950 AGE: 69 SEX: M LOC: CE[facility] PHONE #: [phone] EXAM DATE: 04/19/2020 STATUS: REG [facility] FAX #: [phone] RAD #: D/C DT PAGE 2 Signed ReportPatient Name: ADALBERTO CINTRON Unit No: [id number] EXAMS: CPT CODE: [id number] XR FLUORO FOR SPINE INJ 99767 <Continued> Orig Print D/T: S: 04/19/2020 (09) [facility] NAME: ADALBERTO CINTRON [address] [place] [address] PHYS: Junior Lind MD [place] [address] : 1950 AGE: 69 SEX: M LOC: CEZ[facility] PHONE #: [phone] EXAM DATE: 04/19/2020 STATUS: REG [facility] FAX #: [phone] RAD #: D/C DT PAGE 3 Signed [id number] 08:53:00 Test Item Value Reference Range Interpretation Comments GLUBED (test code = GLUBED) 109 mg/dL 60-125 N - XR FLUORO FOR SPINE [id number] 10:12:00 Patient Name: ADALBERTO CINTRON Unit No: [id number] EXAMS: CPT CODE: [id number] XR FLUORO FOR SPINE INJ 52739 LUMBAR TRANSFORAMINAL INJECTION REFERRING PHYSICIAN: PREOPERATIVE DIAGNOSIS: Degenerative Lumbar Disc Disease. POSTOPERATIVE DIAGNOSIS: Bilateral lumbar radiculopathy PROCEDURES PERFORMED1. Fluoroscopically guided needle localization of the bilateral L4, bilateral L5 spinal nerve/nerveswith transforaminal epidural steroid injection/injections. 2. Transforaminal epidurogram/epidurograms at bilateral L4, bilateral L5. FINDINGS: Poor filling all. Concordant provocation bilateral L5 hips, left L4 back. Pain relief-100%. ANTIBIOTIC: Cefazolin ESTIMATED BLOOD LOSS: Minimal ANESTHESIA: (TIVA )Total intravenous anesthetic (patient intolerant to sedatives and hypnotics) COMPLICATIONS: NoneDETAILS OF PROCEDURE: After obtaining stable vital signs, informed consent and IV access, with no known contraindications to proceeding, the patient was taken to the fluoroscopy suite and placed in a prone position with all extremities padded and appropriate monitors placed. A sterile prep and drape was performed over the lumbosacral spine. Using fluoroscopic visualization at each level the insertionsite was marked for a paravertebral approach to the foramen. Using standard technique, a 25 gauge needle was advanced to the base of the pedicle. In AP view, final positioning was obtained outside the 6 on the clock position on the pedicle. Then, 1 ml of Isovue-300 contrast was injected to produce theepidurograms. No paresthesias were elicited with needle insertion or injection and there were no signs of intravascular or intrathecal uptake. Then, with 1 ml of 4% lidocaine and 10 mg of triamcinolonewas injected incrementally with frequent negative aspirations. There were no signs of intravascular or intrathecal uptake. Each subsequent level was done using the same technique and medications. The patient's vital signs remained stable. The patient was taken to the PACU in good condition. at 1012 Reported and signed by: Junior Chavarria M.D.[facility] NAME: ADALBERTO CINTRON [address] [facility] PHYS: DOCUD - Junior Chavarria MD [place], [place] [address] : 1950 AGE: 68 SEX: M LOC: CEZAR PHONE #: [phone] EXAM DATE: 08/27/2019 STATUS: REG [facility] FAX #: [phone] RAD #: D/C DT PAGE 1 Signed Report (CONTINUED) Patient Name: ADALBERTO CINTRON Unit No: [id number] EXAMS: CPT CODE: [id number] FLUORO FOR SPINE INJ 98782 <Continued> CC: Technologist: Tamiko Brennan(R) Transcribed D/ (1011) Sh[facility] NAME: ADALBERTO CINTRON [address] [facility] PHYS: ALEXANDERUD - DoctorJunior MD [place] [address] : 1950 AGE: 68 SEX: M LOC: CEZAR PHONE #: [phone] EXAM DATE: 08/27/2019 STATUS: REG [facility] FAX #:[phone] RAD #: D/C DT PAGE 2 Signed Report Patient Name: ADALBERTO CINTRON Unit No: [id number] EXAMS: CPT CODE: [id number] XR FLUORO FOR SPINE INJ 77215 <Continued> Orig Print D/T: S: 08/27/2019 (1014) [facility] NAME: ADALBERTO CINTRON [address] [facility] PHYS: ALEXANDERUD -Junior Chavarria MD [place] [address] : 1950 AGE: 68 SEX: M LOC:CEZAR PHONE #: [phone] EXAM DATE: 08/27/2019 STATUS: REG [facility] FAX #: [phone] RAD #: D/C DTPAGE 3 Signed ReportGLUBED 2019-08-27 09:10:00 Test Item Value Reference Range Interpretation Comments GLUBED (test code = GLUBED) 93 mg/dL 60-125 N [id number] 06:51:00 Test Item Value Reference Range Interpretation Comments GLUBED (test code = GLUBED) 113 mg/dL 60-125 N - XR FLUORO FOR SPINE [id number] 10:42:00 Patient Name: ADALBERTO CINTRON Unit No: [id number] EXAMS: CPT CODE: [id number] XR FLUORO FOR SPINE INJ 40312 CERVICAL TRANSFORAMINAL INJECTION REFERRING PHYSICIAN: PREOPERATIVE DIAGNOSIS: Cervicalradiculitis POSTOPERATIVE DIAGNOSIS: Bilateral cervical radiculopathy PROCEDURES PERFORMED: Fluoroscopically guided needle localization of the bilateral C4, bilateral C5 spinal nerves with transforaminal epidural steroid injection/injections. 2. Transforaminal epidurogram/epidurograms at bilateral C4,bilateral C5 FINDINGS: Poor filling bilateral C5, bilateral [...] taken to the PACU in good condition. [facility] NAME: ADALBERTO CINTRON [address] [facility] PHYS:DOCUD - Doctor,Junior Hazel MD [place], [place] [address] : 1950 AGE: 68 SEX: M LOC: CEZAR PHONE #: [phone] EXAM DATE: 08/06/2019 STATUS: REG [facility] FAX #: [phone] RAD #:D/C DT PAGE 1 Signed Report (CONTINUED) Patient Name: ADALBERTO CINTRON Unit No: [id number] EXAMS: CPT CODE: [id number] XR FLUORO FOR SPINE INJ 30854 <Continued> at 1042 Reported and signed by: Junior Chavarria M.D. CC: Technologist:Tamiko Brennan(R) Transcribed D/ (1042) Shayan [facility] NAME: ADALBERTO CINTRON [address] [facility] PHYS: Junior Lind MD [place] [address] : 1950 AGE: 68 SEX: M LOC: CEZAR PHONE #: [phone] EXAM DATE:08/06/2019 STATUS: REG [facility] FAX #: [phone] RAD #: D/C DT PAGE 2 Signed Report Patient Name: ADALBERTO CINTRON Unit No: [id number] EXAMS: CPT CODE: [id number] XR FLUORO FOR SPINE INJ 66365 <Continued> Orig Print D/T: S: 08/06/2019 (1045) [facility] NAME: ADALBERTO CINTRON [address] [facility] PHYS: Junior Lind MD [place] [address] : 1950 AGE: 68SEX: M LOC: CEZAR PHONE #: [phone] EXAM DATE: 08/06/2019 STATUS: REG [facility] FAX #: [phone] RAD #: D/C DT PAGE 3 Signed [id number] 09:55:00 Test Item Value Reference Range Interpretation Comments GLUBED (test code = GLUBED) 126 mg/dL 60-125 H [id number] 08:53:00 Test Item Value Reference Range Interpretation Comments GLUBED (test code = GLUBED) 134 mg/dL 60-125 H
[2022-02-27] MEDS ORDERED: NA CHLORIDE 0.9% 250 ML ONE (10:36)
[2022-02-27] MEDS ORDERED: IPRATROPIUM BROM 0.5MG/2.5ML ONE ×2 (10:36→10:58)
[2022-02-27] MEDS ORDERED: CEFTRIAXONE 1000 MG/VIAL ONE (10:36)
[2022-02-27] MEDS ORDERED: AZITHROMYCIN 500 MG INJ IVPB ONE (10:36)
[2022-02-27] MEDS ORDERED: ALBUTEROL 2.5 MG/3 ML NEB SOL ONE (10:36)
[2022-02-27] MEDS ORDERED: METHYLPREDNISOLONE 125 MG INJ ONE (10:36)
[2022-02-27] MEDS ORDERED: NA CHLORIDE 0.9% 100 ML ONE (10:37)
[2022-02-27 10:49] LABS: Absolute Lymphocytes (CBC) 0.5 K/uL (0.7-4.9); Lymphocytes % 5.5 % (15.3-44.8); MCV 91.8 fL (80-100); MPV 8.1 fL (7.6-11.3); RBC Red Blood Cell Count 4.57 M/uL (4.33-5.43)
--- NOTE | 2022-02-27 10:50 | RAD REPORT ---
EXAM DESCRIPTION: RAD - Chest Single View - 02/27/2022 10:43 am CLINICAL HISTORY: COPD COMPARISON: Chest Pa And Lat (2 Views) dated 08/29/2021; Chest Single View dated 02/20/2021; Lung Cancer Screening CT W/O dated 08/29/2021 FINDINGS: Lines: None. Lungs: Chronic interstitial changes are noted bilaterally. Mild decrease in lung volumes but otherwis e no significant changes identified. . Pleural: No significant pleural effusions or pneumothorax. Cardiac: Similar size and configuration Bones: No acute fractures. Other: IMPRESSION: Slight decreased lung volumes but otherwise grossly similar chronic interstitial lung di sease without a new superimposed acute process.
[2022-02-27 11:18] LABS: Albumin 3.5 g/dL (3.4-5.0); Bilirubin Direct 0.5 mg/dL (0-0.2); Bilirubin Total 1.2 mg/dL (0.2-1.0); Magnesium 1.8 mg/dL (1.8-2.4); Potassium 3.4 mmol/L (3.5-5.1); Troponin High Sensitivity 21.4 pg/mL (<58.9)
[2022-02-27 11:35] LABS: SARS-CoV-2 Antigen Rapid Res Negative (Negative)
--- NOTE | 2022-02-27 12:22 | EDPHYS ---
Physician Documentation [facility] Name: Christian Cintron Age: 71 yrs Sex: Male : 1950 Arrival Date: 02/27/2022 Time: 09:58 Bed 8 Private MD: ED Physician Shahriar Soriano HPI: 02/27 10:49 This 71 yrs old Male presents to ER via EMS with complaints of Shortness Of Breath. sp3 10:49 71-year-old male with history of COPD, diabetes, hyperlipidemia, hypertension, atrial sp3 fibrillation on Eliquis presents via EMS for worsening shortness of breath, cough for the last 12 hours or so. Patient states that he is on 6 to 8 L of home oxygen and his baseline pulse oxygenation is in the 88 to 91% range while on oxygen. He states his symptoms have gotten worse or presents to the ED. He denies fever, chest pain, back pain, abdominal pain, nausea, vomiting, diarrhea, rash, known sick contacts, travel history, or any other aspects of ROS at this time. Patient reports his home nebulizers are not helping. He is not on any steroids. He is visibly short of breath per EMS.. Historical: - Allergies: 10:03 No Known Allergies; iw - Home Meds: 10:03 atorvastatin 80 mg Oral tab once daily [Active]; Eliquis 5 mg Oral tab 2 times per day iw [Active]; gabapentin 300 mg Oral cap 3 times per day [Active]; losartan 25 mg Oral tab once daily [Active]; metformin 500 mg Oral tab 1 tab 2 times per day [Active]; metoprolol succinate 25 mg Oral Tb24 once daily [Active]; - PMHx: 10:03 COPD; Diabetes - NIDDM; Hyperlipidemia; Hypertension; Atrial Fib; iw 10:17 "home O2 at 8 liters"; ss - Immunization history:: Client reports receiving the 2nd dose of the Covid vaccine. - Social history:: Smoking status: Patient/guardian denies using tobacco, the patient reports quitting approximately 9 years ago. ROS: 10:50 Constitutional: Negative for fever, chills, and weight loss, Eyes: Negative for injury, sp3 pain, redness, and discharge, ENT: Negative for injury, pain, and discharge, Neck: Negative for injury, pain, and swelling, Cardiovascular: Negative for chest pain, palpitations, and edema, Abdomen/GI: Negative for abdominal pain, nausea, vomiting, diarrhea, and constipation, Back: Negative for injury and pain, MS/Extremity: Negative for injury and deformity, Skin: Negative for injury, rash, and discoloration, Neuro: Negative for headache, weakness, numbness, tingling, and seizure, Psych: Negative for depression, anxiety, suicide ideation, homicidal ideation, and hallucinations, Allergy/Immunology: Negative for hives, rash, and allergies, Endocrine: Negative for neck swelling, polydipsia, polyuria, polyphagia, and marked weight changes, Hematologic/Lymphatic: Negative for swollen nodes, abnormal bleeding, and unusual bruising. 10:50 All other systems are negative. Exam: 10:50 Constitutional: This is a well developed, well nourished patient who is awake, alert, sp3 and in no acute distress. Head/Face: Normocephalic, atraumatic. Eyes: Pupils equal round and reactive to light, extra-ocular motions intact. Lids and lashes normal. Conjunctiva and sclera are non-icteric and not injected. Cornea within normal limits. Periorbital areas with no swelling, redness, or edema. ENT: Nares patent. No nasal discharge, no septal abnormalities noted. External auditory canals are clear. Oropharynx with no redness, swelling, or masses, exudates, or evidence of obstruction, uvula midline. Mucous membranes moist. Neck: Trachea midline, no thyromegaly or masses palpated, and no cervical lymphadenopathy. Supple, full range of motion without nuchal rigidity, or vertebral point tenderness. No Meningismus. Chest/axilla: Normal chest wall appearance and motion. Nontender with no deformity. No lesions are appreciated. Abdomen/GI: Soft, non-tender, with normal bowel sounds. No distension or tympany. No guarding or rebound. No evidence of tenderness throughout. Back: No spinal tenderness. No costovertebral tenderness. Full range of motion. Skin: Warm, dry with normal turgor. Normal color with no rashes, no lesions, and no evidence of cellulitis. MS/ Extremity: Pulses equal, no cyanosis. Neurovascular intact. Full, normal range of motion. Neuro: Awake and alert, GCS 15, oriented to person, place, time, and situation. Cranial nerves II-XII grossly intact. Motor strength 5/5 in all extremities. Sensory grossly intact. Cerebellar exam normal. Normal gait. Psych: Awake, alert, with orientation to person, place and time. Behavior, mood, and affect are within normal limits. 10:50 Cardiovascular: Atrial fibrillation with heart rate in the 90-100 range.. 10:50 Respiratory: Patient with visible mild shortness of breath respiratory distress. Scattered wheezes present. Patient is 88% on 15 L nonrebreather mask.. Vital Signs: 10:06 BP 104 / 59; Pulse 94; Resp 22 S; Temp 98.1; Pulse Ox 96% on Non-rebreather mask; iw Weight 89.36 kg; Height 6 ft. 0 in. (182.88 cm); Pain 0/10; 10:06 Body Mass Index 26.72 (89.36 kg, 182.88 cm) iw MDM: 10:19 Patient medically screened. sp3 10:52 Data reviewed: vital signs, nurses notes. ED course: 71-year-old male with COPD sp3 exacerbation. Will place patient on BiPAP, start steroids and antibiotics, as well as administering nebulizers including albuterol and Atrovent. Work-up is pending and patient will be admitted.. 02/27 10:18 Order name: Basic Metabolic Panel; Complete Time: 11:37 sp3 02/27 10:18 Order name: CBC with Diff sp3 02/27 10:18 Order name: LFT's; Complete Time: 11:37 sp3 02/27 10:18 Order name: Magnesium; Complete Time: 11:37 sp3 02/27 10:18 Order name: NT PRO-BNP; Complete Time: 11:37 sp3 02/27 10:18 Order name: Troponin HS; Complete Time: 11:37 sp3 02/27 10:18 Order name: XRAY Chest (1 view); Complete Time: 10:52 sp3 02/27 10:18 Order name: BIPAP sp3 02/27 10:45 Order name: SARS RAPID; Complete Time: 11:37 em1 02/27 10:45 Order name: Flu em1 02/27 10:53 Order name: Blood Culture Adult (2) sp3 02/27 13:05 Order name: CBC Smear Scan EDMS 02/27 10:18 Order name: EKG; Complete Time: 10:20 sp3 02/27 10:18 Order name: Cardiac monitoring; Complete Time: 10:25 sp3 02/27 10:18 Order name: EKG - Nurse/Tech; Complete Time: 10:24 sp3 02/27 10:18 Order name: IV Saline Lock; Complete Time: 10:41 sp3 02/27 10:18 Order name: Labs collected and sent; Complete Time: 10:41 sp3 02/27 10:18 Order name: O2 Per Protocol; Complete Time: 10: sp3 02/27 10:18 Order name: O2 Sat Monitoring; Complete Time: 10:25 sp3 Administered Medications: 10:38 Drug: DuoNeb (albuterol 2.5 mg, ipratropium 0.5 mg) (3:1) (2.5 mg - 0.5 mg) 3 ml Route: ss Nebulizer; 12:20 Follow up: Response: No adverse reaction; Marked relief of symptoms ss 10:38 Drug: DuoNeb (albuterol 2.5 mg, ipratropium 0.5 mg) (3:1) (2.5 mg - 0.5 mg) 3 ml Route: ss Nebulizer; 12:20 Follow up: Response: No adverse reaction 11:13 Drug: SOLU-Medrol (methylPrednisoLONE) 125 mg Route: IVP; Site: right wrist; 12:21 Follow up: Response: No adverse reaction 12:20 Drug: Rocephin (cefTRIAXone) 1 grams Route: IV; Rate: calculated rate; Site: right antecubital; 12:54 Follow up: IV Status: Completed infusion [facility] 12:53 Drug: Zithromax (azithromycin) 500 mg Route: IVPB; Infused Over: 1 hrs; Site: left 5 forearm; Disposition Summary: 02/27/22 12:21 Hospitalization Ordered Hospitalization Status: Inpatient Admission sp3 Provider: Barry Allen sp3 Condition: Stable sp3 Problem: an acute exacerbation sp3 Symptoms: have worsened sp3 Bed/Room Type: Standard sp3 Location: Telemetry/MedSurg (Inpatient)(02/27/22 18:30) bd Room Assignment: [facility](02/27/22 18:30) bd Diagnosis - COPD/ Chronic obstructive pulmonary disease with (acute) exacerbation sp3 Forms: - Medication Reconciliation Form sp3 - SBAR form sp3 Signatures: Dispatcher [employer] EDZabrina Melendez Irene, RN RN iw Marlene Carvajal RN RN ss Shahriar Soriano MD MD sp3 Dinorah Zarco RN RN jh5 Corrections: (The following items were deleted from the chart) 10:05 10:03 Home Meds: Spiriva Respimat 1.25 mcg/actuation inhalation mist once daily; [facility] 10:17 10:03 PMHx: Home O2 \\T\\2L; [facility] 18:01 12:21 Telemetry/MedSurg (Inpatient) sp3 bd 18:01 12:21 sp3 bd 18:30 18:01 [facility] ER HOLD bd bd 18:30 18:01 ERHOLD- bd bd
--- NOTE | 2022-02-27 12:22 | ER ---
Nurse's Notes [facility] Name: hCristian Cintron Age: 71 yrs Sex: Male : 1950 Arrival Date: 02/27/2022 Time: 09:58 Bed 8 Private MD: Diagnosis: COPD/ Chronic obstructive pulmonary disease with (acute) exacerbation Presentation: 02/27 10:02 Chief complaint: EMS states: pt has hx of COPD c/o SOB for past 3 days, 90% on 8L NC at iw home, uses home O2 regularly. Coronavirus screen: At this time, the client does not indicate any symptoms associated with coronavirus-19. Coronavirus screen: Client presents with at least one sign or symptom that may indicate coronavirus-19. Ebola Screen: Patient negative for fever greater than or equal to 101.5 degrees Fahrenheit, and additional compatible Ebola Virus Disease symptoms Patient denies exposure to infectious person. Patient denies travel to an Ebola-affected area in the 21 days before illness onset. No symptoms or risks identified at this time. Initial Sepsis Screen: Does the patient meet any 2 criteria? No. Patient's initial sepsis screen is negative. Does the patient have a suspected source of infection? No. Patient's initial sepsis screen is negative. Risk Assessment: Do you want to hurt yourself or someone else? Patient reports no desire to harm self or others. 10:02 Method Of Arrival: EMS: [facility] iw 10:02 Acuity: BEATRIZ 3 iw 10:02 Onset of symptoms was February 24, 2022. iw Triage Assessment: 18:46 Respiratory: Onset: The symptoms/episode began/occurred gradually, the patient has jh5 moderate shortness of breath. Historical: - Allergies: 10:03 No Known Allergies; iw - Home Meds: 10:03 atorvastatin 80 mg Oral tab once daily [Active]; Eliquis 5 mg Oral tab 2 times per day iw [Active]; gabapentin 300 mg Oral cap 3 times per day [Active]; losartan 25 mg Oral tab once daily [Active]; metformin 500 mg Oral tab 1 tab 2 times per day [Active]; metoprolol succinate 25 mg Oral Tb24 once daily [Active]; - PMHx: 10:03 COPD; Diabetes - NIDDM; Hyperlipidemia; Hypertension; Atrial Fib; iw 10:17 "home O2 at 8 liters"; ss - Immunization history:: Client reports receiving the 2nd dose of the Covid vaccine. - Social history:: Smoking status: Patient/guardian denies using tobacco, the patient reports quitting approximately 9 years ago. Screenin:10 Abuse screen: Denies threats or abuse. Denies injuries from another. Nutritional ss screening: No deficits noted. Tuberculosis screening: Never had TB. Fall Risk None identified. Assessment: 10:10 General: Appears distressed, Behavior is calm, cooperative, Reports increased dyspnea ss over the past few weeks. Denies fever. Pain: Denies pain. Neuro: Level of Consciousness is awake, alert, obeys commands, Oriented to person, place, time, situation, Savings Counselor are equal bilaterally Speech is normal, Facial symmetry appears normal. Cardiovascular: Capillary refill is sluggish in bilateral fingers. Cardiovascular: Rhythm is atrial fibrillation with rapid ventricular response. Respiratory: Airway is patent Trachea midline Respiratory effort is even, unlabored, Respiratory pattern is regular, symmetrical. Respiratory: Reports shortness of breath on exertion Breath sounds are diminished in left posterior lower lobe, right posterior middle lobe and right posterior lower lobe Denies cough. GI: No signs and/or symptoms were reported involving the gastrointestinal system. EENT: Throat is clear. Derm: Skin is intact, is healthy with good turgor, Skin is dry, Skin is pink, warm \\T\\ dry. normal. Musculoskeletal: Circulation, motion, and sensation intact. Range of motion: intact in all extremities, Swelling absent. 10:10 Reassessment: Patient appears in no apparent distress at this time. Patient and/or ss family updated on plan of care and expected duration. Pain level reassessed. Patient is alert, oriented x 3, equal unlabored respirations, skin warm/dry/pink. Patient denies pain at this time. Patient states feeling better. Patient states symptoms have improved. 18:45 Reassessment: Attempted report at this time;2nd floor charge states; "I did not assign jh5 that patient to a day shift RN so you will have to wait untiul night guard is done with huddle and night guard will take the patient". Vital Signs: 10:06 BP 104 / 59; Pulse 94; Resp 22 S; Temp 98.1; Pulse Ox 96% on Non-rebreather mask; iw Weight 89.36 kg; Height 6 ft. 0 in. (182.88 cm); Pain 0/10; 10:06 Body Mass Index 26.72 (89.36 kg, 182.88 cm) iw ED Course: 09:58 Patient arrived in ED. iw 10:03 Triage completed. iw 10:03 Arm band placed on. iw 10:09 Shahriar Soriano MD is Attending Physician. sp3 10:10 Patient has correct armband on for positive identification. Bed in low position. Call ss light in reach. 10:16 Marlene Carvajal, SARAH is Primary Nurse. ss 10:25 EKG done, by ED staff, reviewed by Shahriar Soriano MD. em1 10:41 Initial lab(s) drawn, by nj, sent to lab. Inserted saline lock: 20 gauge in right em1 forearm, using aseptic technique. Blood collected. 10:45 XRAY Chest (1 view) In Process Unspecified. EDMS 12:21 Barry Allen is Hospitalizing Provider. sp3 18:46 No provider procedures requiring assistance completed. jh5 Administered Medications: 10:38 Drug: DuoNeb (albuterol 2.5 mg, ipratropium 0.5 mg) (3:1) (2.5 mg - 0.5 mg) 3 ml Route: ss Nebulizer; 12:20 Follow up: Response: No adverse reaction; Marked relief of symptoms ss 10:38 Drug: DuoNeb (albuterol 2.5 mg, ipratropium 0.5 mg) (3:1) (2.5 mg - 0.5 mg) 3 ml Route: ss Nebulizer; 12:20 Follow up: Response: No adverse reaction ss 11:13 Drug: SOLU-Medrol (methylPrednisoLONE) 125 mg Route: IVP; Site: right wrist; ss 12:21 Follow up: Response: No adverse reaction ss 12:20 Drug: Rocephin (cefTRIAXone) 1 grams Route: IV; Rate: calculated rate; Site: right ss antecubital; 12:54 Follow up: IV Status: Completed infusion jh5 12:53 Drug: Zithromax (azithromycin) 500 mg Route: IVPB; Infused Over: 1 hrs; Site: left jh5 forearm; Medication: 10:10 VIS not applicable for this client. ss Outcome: 12:21 Decision to Hospitalize by Provider. sp3 20:46 Patient left the ED. bb Signatures: Dispatcher [employer] Megha Recinos RN RN bb Mercy De Leon RN RN iw Tico Albrecht em1 Marlene Carvajal RN RN ss Shahriar Soriano MD MD sp3 Dinorah Zarco RN RN jh5 Corrections: (The following items were deleted from the chart) 10: 10:02 Acuity: BEATRIZ 2 iw iw 10: 10:03 Home Meds: Spiriva Respimat 1.25 mcg/actuation inhalation mist once daily; iw iw 10:08 10:06 Pulse 94bpm; Resp 22bpm; Spontaneous; Pulse Ox 96% Non-rebreather mask; Temp iw 98.1F; 89.36 kg; Height 6 ft. 0 in.; BMI: 26.7; Pain 0/10; iw 10:17 10:03 PMHx: Home O2 \\T\\2L; iw
[2022-02-27 13:05] LABS: Blood Morphology Comment NOT SEEN (NOT SEEN); Platelet Estimate ADEQ; Platelets, Giant PRESENT; White Blood Cell Scan OK (OK)
--- NOTE | 2022-02-27 14:07 | P.HP ---
Certification for Inpatient Patient admitted to: Inpatient With expected LOS: >2 Midnights Practitioner: I am a practitioner with admitting privileges, knowledge of patient current condition, hospital course, and medical plan of care. Services: Services provided to patient in accordance with Admission requirements found in Title 42 Section 412.3 of the Code of Federal Regulations Patient History Date of Service: 02/27/22 Reason for admission: Shortness of breath History of Present Illness: 71-year-old gentleman with a history of COPD and diabetes mellitus presented to the emergency department with a complaint of progressive shortness of breath for about 1 week duration. Patient states that his shortness of breath became much worse this morning, did not improve with his inhalers and nebulizers. He presented to the emergency department where patient was noted to be hypoxic and in respiratory distress. Patient was placed on BiPAP. Chest x-ray showed no acute disease either demonstrate chronic interstitial changes. Initial troponin is negative. No leukocytosis. Patient does not meet criteria for sepsis. Patient admitted for further management. Allergies No Known Drug Allergies Allergy (Verified 02/20/21 23:07) Itching Home Medications: Apixaban [Eliquis] 5 mg PO BID 09/29/20 Atorvastatin Calcium [Lipitor] 80 mg PO BEDTIME 09/29/20 Losartan Potassium 25 mg PO DAILY 09/29/20 Metformin ER [Glucophage ER*] 500 mg PO DAILY AFTER SUPPER 09/29/20 Gabapentin 1 cap PO TID 02/20/21 Metoprolol Succinate [Toprol Xl*] 1 tab PO DAILY 02/20/21 predniSONE [Prednisone*] 20 mg PO BID #30 tab 02/22/21 - Past Medical/Surgical History Diabetic: Yes -: COPD -: Diabetes -: High cholesterol -: Afib - Family History Family History: Reviewed- Non-Contributory - Social History Alcohol use: No CD- Drugs: No Caffeine use: No Place of Residence: Home Review of Systems Other: Patient denied any fever or chest pain or abdominal pain. He denied any palpitation. He denied any nausea vomiting or diarrhea. Except as documented, all other systems reviewed and negative. Physical Examination - Physical Exam General: Alert, In no apparent distress, Oriented x3 HEENT: Other (BiPAP in place), EOMI, Sclerae nonicteric Neck: Supple, JVD not distended Respiratory: Diminished (Bilateral), Other (No crackles) Cardiovascular: No edema, Normal S1 S2, No murmurs, Irregular heart rate/rhythm Capillary refill: <2 Seconds Gastrointestinal: Normal bowel sounds, Soft and benign, Non-distended, No tenderness Musculoskeletal: No swelling, No tenderness Integumentary: No rashes, No erythema Neurological: Normal speech, Normal strength at 5/5 x4 extr, Cranial nerves 3-12 intact Lymphatics: No axilla or inguinal lymphadenopathy - Studies Laboratory Data (last 24 hrs) 02/27/22 10:35: WBC 9.6, Hgb 13.9, Hct 42.0, Plt Count 210 02/27/22 10:35: Sodium 138, Potassium 3.4 L, BUN 26 H, Creatinine 1.39 H, Glucose 185 H, Magnesium 1.8, Total Bilirubin 1.2 H, AST 19, ALT 20, Alkaline Phosphatase 33 L Microbiology Data (last 24 hrs): 02/27/22 10:50 Nasopharnyx Influenza Type A Antigen Screen - Final 02/27/22 10:50 Nasopharnyx Influenza Type B Antigen Screen - Final Assessment and Plan - Problems (Diagnosis) (1) Diabetes mellitus type 2 in obese Current Visit: Yes Status: Acute (2) Chronic atrial fibrillation Current Visit: Yes Status: Acute (3) COPD exacerbation Current Visit: No Status: Chronic (4) Pulmonary fibrosis Current Visit: No Status: Chronic (5) Acute respiratory failure with hypoxia Current Visit: Yes Status: Acute - Plan Admit patient to the medical floor. Wean off BiPAP as tolerated Scheduled bronchodilators IV steroid Empiric antibiotic IV Lasix as needed Insulin sliding scale for glucose management. Watch for steroid-induced hypergl ycemia. Reconcile and continue other home medications. - Advance Directives Does patient have a Living Will: Yes Does patient have a Durable POA for Healthcare: No
[2022-02-27] MEDS ORDERED: ONDANSETRON 4 MG/2 ML VIAL IV PRN (21:14)
[2022-02-27] MEDS: INSULIN -REGULAR HUMAN 50 UNIT/0.5 ML ML SQ SCH (21:14)
[2022-02-27] MEDS ORDERED: ACETAMINOPHEN 500 MG TAB PO PRN (21:14)
[2022-02-27] MEDS ORDERED: levoFLOXacin 750 MG TAB PO SCH (21:30)
[2022-02-27] MEDS: METHYLPREDNISOLONE 40 MG INJ IV SCH (21:48)
[2022-02-27] MEDS: IPRATROPIUM BROM 0.5MG/2.5ML NEB SCH (21:50)
[2022-02-27] MEDS: ALBUTEROL 2.5 MG/3 ML NEB SOL NEB SCH (21:50)
[2022-02-28 00:31] VITALS: BMI 26.7
[2022-02-28] MEDS: METHYLPREDNISOLONE 40 MG INJ IV SCH ×4 (01:35→16:34)
[2022-02-28] MEDS: IPRATROPIUM BROM 0.5MG/2.5ML NEB SCH ×4 (02:55→19:35)
[2022-02-28] MEDS: ALBUTEROL 2.5 MG/3 ML NEB SOL NEB SCH ×4 (02:55→19:35)
[2022-02-28 06:08] LABS: Absolute Lymphocytes (CBC) 0.3 K/uL (0.7-4.9); Hematocrit 38.9 % (39.6-49.0); Lymphocytes % 4.3 % (15.3-44.8); MCV 91.6 fL (80-100); MPV 8.5 fL (7.6-11.3); RBC Red Blood Cell Count 4.25 M/uL (4.33-5.43)
[2022-02-28 06:09] LABS: Magnesium 1.8 mg/dL (1.8-2.4); Phosphorus 3.1 mg/dL (2.5-4.9); Potassium 4.4 mmol/L (3.5-5.1)
[2022-02-28 06:42] LABS: Specific Gravity >= 1.030 (1.005-1.030); Urine Bilirubin Negative (Negative); Urine Blood Negative (Negative); Urine Clarity Clear (Clear); Urine Color Yellow (Yellow); Urine Glucose Trace (Negative); Urine Protein Trace (Negative); Urine Urobilinogen 0.2 mg/dL (0.2-1.0); Urine pH 5.5 (5.0-7.0)
[2022-02-28 06:57] LABS: Urine Bacteria <20 /HPF (<20); Urine RBC <5 /HPF (None Seen)
[2022-02-28] MEDS ORDERED: MAGNESIUM SULFATE 1 gm IVPB 1 GM/100 ML BAG IV ONE (07:00)
[2022-02-28 08:22] LABS: Anisocytosis SLIGHT; Blood Morphology Comment NOTED (NOT SEEN); Platelet Estimate ADEQ; White Blood Cell Scan OK (OK)
[2022-02-28] MEDS: INSULIN -REGULAR HUMAN 50 UNIT/0.5 ML ML SQ SCH ×4 (08:36→21:00)
[2022-02-28] MEDS ORDERED: ENOXAPARIN 40 MG/0.4 ML SQ SCH (09:00)
--- NOTE | 2022-02-28 09:42 | RAD REPORT ---
EXAM DESCRIPTION: CT - Chest For Pe Angio - 02/28/2022 9:31 am CLINICAL HISTORY: Hypoxia COMPARISON: Lung Cancer Screening CT W/O dated 08/29/2021; Thorax W/ Con dated 02/21/2021; Chest Angio d ated 09/29/2020; Abdomen Pelvis W Contrast dated 06/01/2021 TECHNIQUE: Dynamically enhanced axial 3 mm thick images of the chest were obtained during administra tion of <100> mL Isovue 370 IV contrast. Coronal and oblique reconstruction images were generated and reviewed. Exam utilizes a protocol for optimal evaluation of pulmonary arterial tree. Maximum intensity projections 3D imaging was utilized All CT scans are performed using dose optimization technique as appropriate and may include automated exposure control or mA/KV adjustment according to patient size. FINDINGS: Chest Wall: No suspicious thyroid nodules or pathologic lymphadenopathy. Lungs: Mixed emphysema and pulmonary fibrotic changes. Cylindrical bronchiectasis, emphysema, and hon eycombing is present. Pleura: Trace left pleural effusion. Mediastinum/shannen: Mediastinal lymphadenopathy and mild hilar adenopathy is similar. Pulmonary arteries/Aorta: No filling defect identified. No aortic aneurysm. Heart: No significant pericardial effusion. Cardiomegaly. Multivessel coronary artery calcifications. Upper abdomen: No acute abnormality.Cholelithiasis noted. Bones: No acute abnormality. IMPRESSION: Negative for pulmonary embolism. Combined pulmonary fibrosis and emphysema which is at l east moderate in severity.
[2022-02-28] MEDS: OSELTAMIVIR 75 MG CAP PO SCH ×2 (12:42→21:02)
--- NOTE | 2022-02-28 12:54 | P.CNS ---
Date of Consult: 02/28/22 Reason for Consult: COPD exacerbation Chief Complaint: Shortness of breath History of Present Illness: 71 years of age with a history of COPD diabetes scented to the emergency room with progressive dyspnea has been sick for about 3 weeks daughter at the bedside apparently could not afford Breztri at home and was using Ventolin dyspnea on very mild exertion he still on high flow oxygen denies any cough phlegm 7 Allergies No Known Drug Allergies Allergy (Verified 02/20/21 23:07) Itching Home Medications: Apixaban [Eliquis] 5 mg PO BID 09/29/20 Atorvastatin Calcium [Lipitor] 80 mg PO BEDTIME 09/29/20 Losartan Potassium 25 mg PO DAILY 09/29/20 Metformin ER [Glucophage ER*] 500 mg PO DAILY AFTER SUPPER 09/29/20 Gabapentin 1 cap PO TID 02/20/21 Metoprolol Succinate [Toprol Xl*] 1 tab PO BID 02/20/21 - Past Medical/Surgical History Diabetic: Yes -: COPD -: Diabetes -: High cholesterol -: Afib - Social History Smoking Status: Former smoker Alcohol use: No CD- Drugs: No Caffeine use: No Place of Residence: Home Review of Systems 10-point ROS is otherwise unremarkable General: Weakness Respiratory: Shortness of Breath Physical Examination Temp Pulse Resp BP Pulse Ox 97.7 F 89 22 H 109/75 92 02/28/22 12:00 02/28/22 12:00 02/28/22 12:00 02/28/22 12:00 02/28/22 12:00 General: Alert, Moderate distress Respiratory: Clear to auscultation bilaterally, Expiratory wheezes Cardiovascular: No edema, Normal pulses, Regular rate/rhythm Gastrointestinal: Normal bowel sounds, Soft and benign Laboratory Data (last 24 hrs) 02/27/22 10:35: WBC 9.6, Hgb 13.9, Hct 42.0, Plt Count 210 - Problems (1) Acute respiratory failure with hypoxia Current Visit: Yes Status: Acute Plan: Patient is 71 years of age with a history of COVID severe COPD admitted with worsening dyspnea no evidence of pulmonary embolism or pneumonia discussed severe COPD changes on CT scan patient is also in A. fib he does take Eliquis and a beta-arie at home agree with nebulizers steroids addition he will need a long-acting bronchodilator at home has been using Ventolin labs CT scan chest x-rays all reviewed resume home medications
--- NOTE | 2022-02-28 14:02 | P.PN ---
Subjective Date of Service: 02/28/22 Chief Complaint: Shortness of breath Patient reports shortness of breath with exertion. He is maintained on high flow oxygen. Physical Examination - Vital Signs Temperature: 97.7 F Blood Pressure: 109/75 Pulse: 89 Respirations: 22 Pulse Ox (%): 92 - Studies Microbiology Data (last 24 hrs): 02/27/22 12:10 Blood - Blood Anaerobic Blood Culture - Final 02/27/22 12:00 Blood - Blood Anaerobic Blood Culture - Final 02/27/22 10:50 Nasopharnyx Influenza Type A Antigen Screen - Final 02/27/22 10:50 Nasopharnyx Influenza Type B Antigen Screen - Final Assessment And Plan - Current Problems (Diagnosis) (1) Diabetes mellitus type 2 in obese Current Visit: Yes Status: Acute (2) Chronic atrial fibrillation Current Visit: Yes Status: Acute (3) COPD exacerbation Current Visit: No Status: Chronic (4) Pulmonary fibrosis Current Visit: No Status: Chronic (5) Acute respiratory failure with hypoxia Current Visit: Yes Status: Acute - Plan Physical Exam General: Alert, In no apparent distress, Oriented x3 HEENT: High flow oxygen. Neck: Supple, JVD not distended Respiratory: Bilateral diminished breath sounds. No crackles Cardiovascular: No edema, Normal S1 S2, No murmurs, Irregular heart rate/rhythm Gastrointestinal: Normal bowel sounds, Soft and benign, Non-distended, No tenderness Musculoskeletal: No swelling, No tenderness Integumentary: No rashes, No erythema Neurological: Normal speech, Normal strength at 5/5 x4 extr, Cranial nerves 3-12 intact Lymphatics: No axilla or inguinal lymphadenopathy Continue IV steroid, scheduled bronchodilators. Wean FiO2 as tolerated. Started Tamiflu. Continue antibiotic. Antibiotics switched to oral Augmentin. IV Lasix as needed. Pulmonary input appreciated. Insulin sliding scale for glucose management. Watch for steroid-induced hyperglycemia. Continue other home medications including Eliquis.
[2022-02-28] MEDS: GABAPENTIN 300 MG CAP PO SCH ×2 (14:22→21:02)
--- NOTE | 2022-02-28 14:34 | EKG ---
Test Date: 2022-02-27 Test Time: 10:20:01 [employer] Superintendent: DARRIN MEASUREMENT RESULTS: Intervals: Rate: 88 IL: QRSD: 126 QT: 384 QTc: 464 [place]: P: IL: QRS: 140 T: -69 INTERPRETIVE STATEMENTS: Atrial fibrillation Right bundle branch block, plus right ventricular hypertrophy Left posterior fascicular block Bifascicular block T wave abnormality, consider inferolateral ischemia Abnormal ECG Compared to ECG 02/20/2021 07:26:45 Right ventricular hypertrophy now present Left posterior fascicular block now present Bifascicular block now present T-wave abnormality still present Possible ischemia still present Electronically Signed On 02-28-22 14:31:57 CDT by Pradip Lopez
[2022-02-28 15:51] LABS: Arterial Blood Carboxyhemoglob 1.2 % (0-1.5); Blood Gas Oxyhemoglobin 41.6 % (94-97); Blood O2 Saturation 42.6 % (92-98.5)
[2022-02-28] MEDS: METFORMIN ER 500 MG TAB PO SCH (16:34)
[2022-02-28] MEDS: ATORVASTATIN 80 MG TAB PO SCH (21:01)
[2022-02-28] MEDS: APIXABAN 5 MG TABLET PO SCH (21:02)
[2022-02-28] MEDS: AMOX/K CLAV 875 MG TAB PO SCH (21:02)
[2022-02-28] MEDS: METOPROLOL XL 25 MG TAB PO SCH (21:05)
[2022-03-01] MEDS: METHYLPREDNISOLONE 40 MG INJ IV SCH ×3 (01:00→16:53)
[2022-03-01] MEDS: IPRATROPIUM BROM 0.5MG/2.5ML NEB SCH ×4 (01:25→19:50)
[2022-03-01] MEDS: ALBUTEROL 2.5 MG/3 ML NEB SOL NEB SCH ×2 (01:25→08:00)
[2022-03-01 06:14] LABS: Absolute Lymphocytes (CBC) 0.3 K/uL (0.7-4.9); Hematocrit 38.6 % (39.6-49.0); Lymphocytes % 2.9 % (15.3-44.8); MCV 91.9 fL (80-100); MPV 8.1 fL (7.6-11.3); RBC Red Blood Cell Count 4.21 M/uL (4.33-5.43)
[2022-03-01 06:26] LABS: Potassium 4.4 mmol/L (3.5-5.1)
[2022-03-01] MEDS: INSULIN -REGULAR HUMAN 50 UNIT/0.5 ML ML SQ SCH ×4 (07:30→20:26)
[2022-03-01] MEDS: ARFORMOTEROL TARTRATE 15 MCG/2 ML VIAL.NEB NEB SCH ×2 (08:06→19:50)
--- NOTE | 2022-03-01 08:09 | P.PN ---
Subjective Date of Service: 03/01/22 Chief Complaint: Respiratory failure Subjective: Improving (Patient is improving oxygen requirements are declining) Review of Systems General: Weakness Respiratory: Shortness of Breath Physical Examination - Vital Signs Temperature: 97.1 F Blood Pressure: 124/64 Pulse: 71 Respirations: 19 Pulse Ox (%): 92 - Physical Exam General: Alert, In no apparent distress, Oriented x3 Respiratory: Clear to auscultation bilaterally, Diminished Cardiovascular: No edema, Regular rate/rhythm - Studies Microbiology Data (last 24 hrs): 02/27/22 12:10 Blood - Blood Anaerobic Blood Culture - Final 02/27/22 12:00 Blood - Blood Anaerobic Blood Culture - Final Assessment And Plan - Current Problems (Diagnosis) (1) Acute respiratory failure with hypoxia Current Visit: Yes Status: Acute Plan: Patient admitted with the respiratory failure is improving continue to titrate O2 down to a sat of 90% labs and meds reviewed otherwise no change he is on Solu-Medrol 40 mg IV every 8 once his oxygen requirements have declined can change to p.o. prednisone patient is influenza B positive add a macrolide for anti-inflammatory purposes
[2022-03-01] MEDS ORDERED: LOSARTAN POTASSIUM 50 MG TABLET PO SCH (09:00)
[2022-03-01] MEDS: GABAPENTIN 300 MG CAP PO SCH ×3 (10:03→20:25)
[2022-03-01] MEDS: AMOX/K CLAV 875 MG TAB PO SCH ×2 (10:03→20:24)
[2022-03-01] MEDS: AZITHROMYCIN 250 MG TAB PO SCH (10:04)
[2022-03-01] MEDS: APIXABAN 5 MG TABLET PO SCH ×2 (10:04→20:25)
[2022-03-01] MEDS: METOPROLOL XL 25 MG TAB PO SCH ×2 (10:04→20:24)
[2022-03-01] MEDS: OSELTAMIVIR 75 MG CAP PO SCH ×2 (10:13→20:25)
--- NOTE | 2022-03-01 12:58 | P.PN ---
Subjective Date of Service: 03/01/22 Chief Complaint: Respiratory failure Patient still requiring high flow oxygen but FiO2 weaned down to 75% He has intermittent nonproductive cough. No recorded fever. Physical Examination - Vital Signs Temperature: 97.6 F Blood Pressure: 98/65 Pulse: 75 Respirations: 25 Pulse Ox (%): 92 - Studies Microbiology Data (last 24 hrs): 02/27/22 12:10 Blood - Blood Anaerobic Blood Culture - Final 02/27/22 12:00 Blood - Blood Anaerobic Blood Culture - Final Assessment And Plan - Current Problems (Diagnosis) (1) Diabetes mellitus type 2 in obese Current Visit: Yes Status: Acute (2) Chronic atrial fibrillation Current Visit: Yes Status: Acute (3) COPD exacerbation Current Visit: No Status: Chronic (4) Pulmonary fibrosis Current Visit: No Status: Chronic (5) Acute respiratory failure with hypoxia Current Visit: Yes Status: Acute - Plan Physical Exam General: Alert, In no apparent distress, Oriented x3 HEENT: High flow oxygen. Neck: Supple, JVD not distended Respiratory: Bilateral diminished breath sounds. No crackles Cardiovascular: No edema, Normal S1 S2, No murmurs, Irregular heart rate/rhythm Gastrointestinal: Normal bowel sounds, Soft and benign, Non-distended, No tenderness Musculoskeletal: No swelling, No tenderness Integumentary: No rashes, No erythema Neurological: Normal speech, Normal strength at 5/5 x4 extr, Cranial nerves 3-12 intact Continue IV steroid, scheduled bronchodilators. Pulmonary input appreciated Wean FiO2 as tolerated. On Tamiflu. On Augmentin and Zithromax IV Lasix as needed. Insulin sliding scale for glucose management. Watch for steroid-induced hyperglycemia. Continue Eliquis. Trazodone for insomnia.
[2022-03-01] MEDS: LEVALBUTEROL 1.25 MG/3 ML NEB NEB SCH ×2 (14:00→19:50)
[2022-03-01] MEDS: METFORMIN ER 500 MG TAB PO SCH (16:53)
[2022-03-01] MEDS: POLYETHYL GLY 3350 17 GM/DOSE PO PRN (16:57)
[2022-03-01] MEDS: TRAZODONE 50 MG TABLET PO SCH (20:24)
[2022-03-01] MEDS: ATORVASTATIN 80 MG TAB PO SCH (20:25)
[2022-03-02] MEDS: METHYLPREDNISOLONE 40 MG INJ IV SCH (00:51)
[2022-03-02] MEDS: IPRATROPIUM BROM 0.5MG/2.5ML NEB SCH ×4 (02:35→19:42)
[2022-03-02] MEDS: LEVALBUTEROL 1.25 MG/3 ML NEB NEB SCH ×4 (02:35→19:42)
[2022-03-02 06:00] LABS: Absolute Lymphocytes (CBC) 0.3 K/uL (0.7-4.9); Hematocrit 42.3 % (39.6-49.0); Lymphocytes % 2.6 % (15.3-44.8); MCV 94.4 fL (80-100); MPV 8.2 fL (7.6-11.3); RBC Red Blood Cell Count 4.48 M/uL (4.33-5.43)
[2022-03-02 06:14] LABS: Potassium 4.9 mmol/L (3.5-5.1)
[2022-03-02 06:30] LABS: Magnesium 2.3 mg/dL (1.8-2.4)
[2022-03-02] MEDS: INSULIN -REGULAR HUMAN 50 UNIT/0.5 ML ML SQ SCH ×4 (07:30→21:55)
[2022-03-02] MEDS: ARFORMOTEROL TARTRATE 15 MCG/2 ML VIAL.NEB NEB SCH ×2 (08:08→19:42)
--- NOTE | 2022-03-02 08:36 | P.PN ---
Subjective Date of Service: 03/02/22 Chief Complaint: Respiratory failure Subjective: Improving (Patient is improving oxygen requirements have declined to 60% no new complaints) Review of Systems General: Weakness Respiratory: Shortness of Breath Physical Examination - Vital Signs Temperature: 96.8 F Blood Pressure: 93/63 Pulse: 65 Respirations: 18 Pulse Ox (%): 90 - Physical Exam General: Alert, In no apparent distress, Oriented x3 Respiratory: Clear to auscultation bilaterally, Diminished Cardiovascular: No edema, Regular rate/rhythm Assessment And Plan - Current Problems (Diagnosis) (1) Acute respiratory failure with hypoxia Current Visit: Yes Status: Acute Plan: Patient is doing better oxygen requirements have declined to 60% cultures all negative reduce dose of steroids changed to p.o. prednisone he is stable continue with p.o. antibiotics DC losartan blood pressure is low continue with metoprolol blood sugar stable continue to wean down on the oxygen
[2022-03-02] MEDS: METOPROLOL XL 25 MG TAB PO SCH ×2 (09:00→21:52)
[2022-03-02] MEDS: APIXABAN 5 MG TABLET PO SCH ×2 (10:58→21:52)
[2022-03-02] MEDS: predniSONE 20 MG TAB PO SCH ×2 (10:58→22:03)
[2022-03-02] MEDS: GABAPENTIN 300 MG CAP PO SCH ×3 (10:58→21:49)
[2022-03-02] MEDS: AZITHROMYCIN 250 MG TAB PO SCH (10:59)
[2022-03-02] MEDS: AMOX/K CLAV 875 MG TAB PO SCH ×2 (10:59→21:49)
[2022-03-02] MEDS: OSELTAMIVIR 75 MG CAP PO SCH ×2 (10:59→21:52)
[2022-03-02] MEDS: POLYETHYL GLY 3350 17 GM/DOSE PO PRN (11:04)
--- NOTE | 2022-03-02 13:13 | P.PN ---
Subjective Date of Service: 03/02/22 Chief Complaint: Respiratory failure Patient states his shortness of breath is better. Oxygen weaned down to 60% FiO2 with 25 L/min flow. Physical Examination - Vital Signs Temperature: 97.6 F Blood Pressure: 103/61 Pulse: 72 Respirations: 18 Pulse Ox (%): 96 Assessment And Plan - Current Problems (Diagnosis) (1) Diabetes mellitus type 2 in obese Current Visit: Yes Status: Acute (2) Chronic atrial fibrillation Current Visit: Yes Status: Acute (3) COPD exacerbation Current Visit: No Status: Chronic (4) Pulmonary fibrosis Current Visit: No Status: Chronic (5) Acute respiratory failure with hypoxia Current Visit: Yes Status: Acute - Plan Physical Exam General: Alert, In no apparent distress, Oriented x3 HEENT: High flow oxygen. Neck: Supple, JVD not distended Respiratory: Bilateral diminished breath sounds. No crackles Cardiovascular: No edema, Normal S1 S2, No murmurs, Irregular heart rate/rhythm Gastrointestinal: Normal bowel sounds, Soft and benign, Non-distended, No tenderness Musculoskeletal: No swelling, No tenderness Integumentary: No rashes, No erythema Neurological: Normal speech, Normal strength at 5/5 x4 extr, Cranial nerves 3-12 intact Patient transition to p.o. steroid Continue scheduled bronchodilators. Pulmonary is following. Wean FiO2 as tolerated. On Tamiflu. On Augmentin and Zithromax IV Lasix as needed. Metformin and insulin sliding scale for glucose management. Continue Eliquis. Trazodone for insomnia. Patient at baseline using up to 8 L oxygen by nasal cannula with exertion. He may be a candidate for home NIV.
[2022-03-02] MEDS: METFORMIN ER 500 MG TAB PO SCH (17:19)
[2022-03-02] MEDS: LACTULOSE 20 GM/30 ML UCUP PO SCH (21:48)
[2022-03-02] MEDS: ATORVASTATIN 80 MG TAB PO SCH (21:50)
[2022-03-02] MEDS: TRAZODONE 50 MG TABLET PO SCH (22:03)
[2022-03-03] MEDS: IPRATROPIUM BROM 0.5MG/2.5ML NEB SCH ×4 (03:30→19:45)
[2022-03-03] MEDS: LEVALBUTEROL 1.25 MG/3 ML NEB NEB SCH ×4 (03:30→19:45)
[2022-03-03 05:41] LABS: Absolute Lymphocytes (CBC) 0.3 K/uL (0.7-4.9); Hematocrit 41.6 % (39.6-49.0); Lymphocytes % 2.9 % (15.3-44.8); MCV 94.2 fL (80-100); MPV 8.3 fL (7.6-11.3); RBC Red Blood Cell Count 4.41 M/uL (4.33-5.43)
[2022-03-03 06:01] LABS: Potassium 4.9 mmol/L (3.5-5.1)
[2022-03-03] MEDS: INSULIN -REGULAR HUMAN 50 UNIT/0.5 ML ML SQ SCH ×4 (07:30→20:48)
[2022-03-03] MEDS: ARFORMOTEROL TARTRATE 15 MCG/2 ML VIAL.NEB NEB SCH ×2 (08:00→19:45)
[2022-03-03 09:24] LABS: Blood Morphology Comment NOT SEEN (NOT SEEN); Platelet Estimate ADEQ; White Blood Cell Scan OK (OK)
[2022-03-03] MEDS: APIXABAN 5 MG TABLET PO SCH ×2 (10:44→20:47)
[2022-03-03] MEDS: predniSONE 20 MG TAB PO SCH ×2 (10:44→20:48)
[2022-03-03] MEDS: METOPROLOL XL 25 MG TAB PO SCH ×2 (10:45→20:48)
[2022-03-03] MEDS: AZITHROMYCIN 250 MG TAB PO SCH ×2 (10:45→10:48)
[2022-03-03] MEDS: GABAPENTIN 300 MG CAP PO SCH ×3 (10:49→20:47)
[2022-03-03] MEDS: OSELTAMIVIR 75 MG CAP PO SCH ×2 (10:49→20:47)
[2022-03-03] MEDS: AMOX/K CLAV 875 MG TAB PO SCH ×2 (10:49→20:48)
[2022-03-03] MEDS: LACTULOSE 20 GM/30 ML UCUP PO SCH ×3 (10:53→20:48)
[2022-03-03] MEDS ORDERED: GUAIFENESIN/DM 5 ML UCUP PO PRN (11:04)
[2022-03-03] MEDS: METFORMIN ER 500 MG TAB PO SCH (17:11)
--- NOTE | 2022-03-03 17:50 | P.PN ---
Subjective Date of Service: 03/03/22 Chief Complaint: Respiratory failure Subjective: No new changes FERNANDA COOL IS END STAGE COPD PATIENT WHO IS ON HIGH FLOW OXYGEN NOW AND NOT MUCH IMPROVED. ER STAFF CALLED THE WRONG DOCTOR FOR ADMISSION AND I WAS MADE AWARE OF ONLY LAST NIGHT THAT FERNANDA IS IN [facility]. I TOD THEM I WILL SEE HIM FROM TODAY. Physical Examination - Vital Signs Temperature: 97.8 F Blood Pressure: 103/74 Pulse: 73 Respirations: 24 Pulse Ox (%): 94 - Physical Exam General: Oriented x3, Acute distress, Moderate distress HEENT: Atraumatic, PERRLA, EOMI Neck: Supple, JVD not distended Respiratory: Diminished Cardiovascular: Regular rate/rhythm, Normal S1 S2 Gastrointestinal: Normal bowel sounds, No tenderness Musculoskeletal: No tenderness Integumentary: No rashes Neurological: Normal speech, Normal tone, Normal affect Lymphatics: No axilla or inguinal lymphadenopathy - Studies Medications List Reviewed: Yes Assessment And Plan - Current Problems (Diagnosis) (1) Acute respiratory failure with hypoxia Current Visit: Yes Status: Acute Plan: SEVERE ISSUES. MAY NEED LTAC. HE CARRIES POOR PROGNOSIS. CONTINUE STEROIDS NEBS AND ABX. (2) A-fib Current Visit: No Status: Chronic Plan: RATE CONTROLLED. ON ELIUQIS. (3) COPD exacerbation Current Visit: No Status: Chronic Plan: ABOVE, THIS IS THE MAIN REASON FOR RESPIRATORY FAILURE.
[2022-03-03] MEDS: TRAZODONE 50 MG TABLET PO SCH (20:47)
[2022-03-03] MEDS: ATORVASTATIN 80 MG TAB PO SCH (20:47)
[2022-03-04] MEDS: IPRATROPIUM BROM 0.5MG/2.5ML NEB SCH ×4 (01:42→19:30)
[2022-03-04] MEDS: LEVALBUTEROL 1.25 MG/3 ML NEB NEB SCH ×4 (01:42→19:30)
[2022-03-04 04:30] LABS: Absolute Lymphocytes (CBC) 0.3 K/uL (0.7-4.9); Hematocrit 39.6 % (39.6-49.0); Lymphocytes % 3.1 % (15.3-44.8); MCV 92.8 fL (80-100); MPV 8.2 fL (7.6-11.3); RBC Red Blood Cell Count 4.26 M/uL (4.33-5.43)
[2022-03-04 04:49] LABS: Magnesium 2.4 mg/dL (1.8-2.4); Potassium 4.8 mmol/L (3.5-5.1)
[2022-03-04] MEDS: INSULIN -REGULAR HUMAN 50 UNIT/0.5 ML ML SQ SCH ×4 (07:30→21:46)
[2022-03-04] MEDS: ARFORMOTEROL TARTRATE 15 MCG/2 ML VIAL.NEB NEB SCH (08:20)
[2022-03-04] MEDS ORDERED: ARFORMOTEROL TARTRATE 15 MCG/2 ML VIAL.NEB NEB SCH (08:34)
[2022-03-04] MEDS: AMOX/K CLAV 875 MG TAB PO SCH ×2 (08:59→21:45)
[2022-03-04] MEDS: METOPROLOL XL 25 MG TAB PO SCH ×2 (09:00→21:00)
[2022-03-04] MEDS: predniSONE 20 MG TAB PO SCH ×2 (09:00→21:45)
[2022-03-04] MEDS: APIXABAN 5 MG TABLET PO SCH ×2 (09:00→21:46)
[2022-03-04] MEDS: OSELTAMIVIR 75 MG CAP PO SCH ×2 (09:00→21:46)
[2022-03-04] MEDS: LACTULOSE 20 GM/30 ML UCUP PO SCH (09:00)
[2022-03-04] MEDS ORDERED: DIGOXIN 0.125 MG TABLET PO SCH (09:00)
[2022-03-04] MEDS: GABAPENTIN 300 MG CAP PO SCH ×3 (09:00→21:46)
[2022-03-04] MEDS: DIGOXIN 0.125 MG TABLET PO SCH (09:00)
[2022-03-04] MEDS: AZITHROMYCIN 250 MG TAB PO SCH (09:01)
[2022-03-04] MEDS ORDERED: LACTULOSE 20 GM/30 ML UCUP PO PRN (12:17)
--- NOTE | 2022-03-04 12:18 | P.PN ---
Subjective Date of Service: 03/04/22 Chief Complaint: Respiratory failure Subjective: Improving (Patient is improving slowly still requiring 60% FiO2 on high flow oxygen) Review of Systems 10-point ROS is otherwise unremarkable Physical Examination - Vital Signs Temperature: 97.5 F Blood Pressure: 97/61 Pulse: 81 Respirations: 16 Pulse Ox (%): 88 - Physical Exam General: Alert, In no apparent distress, Mild distress Respiratory: Clear to auscultation bilaterally, Diminished Cardiovascular: No edema, Regular rate/rhythm, Normal S1 S2 - Studies Medications List Reviewed: Yes Assessment And Plan - Current Problems (Diagnosis) (1) Acute respiratory failure with hypoxia Current Visit: Yes Status: Acute Plan: Patient admitted with acute on chronic respiratory failure oxygen requirements have been declining chest x-ray ordered vital signs chemistries reviewed labs reviewed reduce the dose of lactulose start patient on Dulera continue with p.o. prednisone rate controlled
--- NOTE | 2022-03-04 12:45 | P.PN ---
Subjective Date of Service: 03/04/22 Chief Complaint: Respiratory failure Subjective: No new changes FERNANDA COOL IS END STAGE COPD PATIENT WHO IS ON HIGH FLOW OXYGEN NOW AND NOT MUCH IMPROVED. ER STAFF CALLED THE WRONG DOCTOR FOR ADMISSION AND I WAS MADE AWARE OF ONLY LAST NIGHT THAT FERNANDA IS IN [facility]. I TOD THEM I WILL SEE HIM FROM TODAY. FERNANDA IS ABOUT THE SAME. I THOUGHT HE WILL NEED LTAC. I TALKED HIM TODAY AND HE IS WILLING TO GO TO LTAC. Physical Examination - Vital Signs Temperature: 97.5 F Blood Pressure: 97/61 Pulse: 81 Respirations: 16 Pulse Ox (%): 88 - Physical Exam General: Oriented x3, Moderate distress, Severe distress HEENT: Atraumatic, PERRLA, EOMI Neck: Supple, JVD not distended Respiratory: Diminished Cardiovascular: Regular rate/rhythm, Normal S1 S2 Gastrointestinal: Normal bowel sounds, No tenderness Musculoskeletal: No tenderness Integumentary: No rashes Neurological: Normal speech, Normal tone, Normal affect Lymphatics: No axilla or inguinal lymphadenopathy - Studies Microbiology Data (last 24 hrs): 02/27/22 12:10 Blood - Blood Aerobic Blood Culture - Final No growth in 5 days. 02/27/22 12:10 Blood - Blood Anaerobic Blood Culture - Final 02/27/22 12:00 Blood - Blood Aerobic Blood Culture - Final No growth in 5 days. 02/27/22 12:00 Blood - Blood Anaerobic Blood Culture - Final Medications List Reviewed: Yes Assessment And Plan - Current Problems (Diagnosis) (1) Acute respiratory failure with hypoxia Current Visit: Yes Status: Acute Plan: SEVERE ISSUES. MAY NEED LTAC. HE CARRIES POOR PROGNOSIS. CONTINUE STEROIDS NEBS AND ABX. REFER TO LTAC ORDER SENT TO SW TEAM. STABLE FOR DISCHARGE TO LTAC. (2) A-fib Current Visit: No Status: Chronic Plan: RATE CONTROLLED. ON ELIUQIS. (3) COPD exacerbation Current Visit: No Status: Chronic Plan: ABOVE, THIS IS THE MAIN REASON FOR RESPIRATORY FAILURE.
[2022-03-04] MEDS: METFORMIN ER 500 MG TAB PO SCH (17:22)
[2022-03-04] MEDS: ATORVASTATIN 80 MG TAB PO SCH (21:45)
[2022-03-04] MEDS: TRAZODONE 50 MG TABLET PO SCH (21:45)
[2022-03-04] MEDS: DULERA 200/5 (MOMETASONE/FORMOTEROL) INHALER IH SCH (21:46)
[2022-03-05] MEDS: LEVALBUTEROL 1.25 MG/3 ML NEB NEB SCH ×4 (02:00→19:45)
[2022-03-05] MEDS: IPRATROPIUM BROM 0.5MG/2.5ML NEB SCH ×4 (02:00→19:45)
[2022-03-05 04:16] LABS: Absolute Lymphocytes (CBC) 0.4 K/uL (0.7-4.9); Hematocrit 39.2 % (39.6-49.0); Lymphocytes % 4.8 % (15.3-44.8); MCV 92.4 fL (80-100); MPV 8.4 fL (7.6-11.3); RBC Red Blood Cell Count 4.24 M/uL (4.33-5.43)
[2022-03-05 04:35] LABS: Magnesium 2.3 mg/dL (1.8-2.4); Potassium 4.6 mmol/L (3.5-5.1)
--- NOTE | 2022-03-05 06:54 | RAD REPORT ---
EXAM DESCRIPTION: RAD - Chest Single View - 03/05/2022 5:34 am CLINICAL HISTORY: Respiratory failure COMPARISON: CT chest February 28, portable chest February 27 TECHNIQUE: AP portable chest image was obtained 03/05/2022 5:34 am . FINDINGS: Lung volumes are reduced compared to the February 27 portable examination. Patient has a bas zac of very extensive interstitial lung disease with innumerable bulla and blebs scattered in the l remy ramsey. There does appear to be some clearing of interstitial infiltrate or edema when adjusting for more shallow inspiratory effort. Heart and vasculature are normal. No measurable pleural effusion and no pneumothorax. No acute bony abnormality seen. No acute aortic findings suspected. IMPRESSION: Patient appears to have partially cleared interstitial infiltrate or edema that is super imposed on a very extensive chronic interstitial lung pattern.
[2022-03-05] MEDS: INSULIN -REGULAR HUMAN 50 UNIT/0.5 ML ML SQ SCH ×4 (07:30→20:50)
[2022-03-05] MEDS: DULERA 200/5 (MOMETASONE/FORMOTEROL) INHALER IH SCH ×2 (09:04→20:51)
[2022-03-05] MEDS: GABAPENTIN 300 MG CAP PO SCH ×3 (09:04→20:51)
[2022-03-05] MEDS: AZITHROMYCIN 250 MG TAB PO SCH (09:04)
[2022-03-05] MEDS: AMOX/K CLAV 875 MG TAB PO SCH ×2 (09:04→20:50)
[2022-03-05] MEDS: predniSONE 20 MG TAB PO SCH ×2 (09:05→20:51)
[2022-03-05] MEDS: METOPROLOL XL 25 MG TAB PO SCH ×2 (09:05→20:51)
[2022-03-05] MEDS: APIXABAN 5 MG TABLET PO SCH ×2 (09:05→20:51)
[2022-03-05] MEDS: DIGOXIN 0.125 MG TABLET PO SCH (09:05)
[2022-03-05] MEDS: OSELTAMIVIR 75 MG CAP PO SCH (09:06)
--- NOTE | 2022-03-05 13:06 | ECHO ---
HEIGHT: 6 ft 0 in WEIGHT: 197 lb 0 oz DATE OF STUDY: 03/05/[address]: Carlitos Campos MD 2-DIMENSIONAL: YES M.MODE: YES DOPPLER: YES COLOR FLOW: YES TDS: NO PORTABLE: NO DEFINITY: NO BUBBLE STUDY: NO DIAGNOSIS: RESPIRATORY FAILURE CARDIAC HISTORY: CATHERIZATION: NO SURGERY: NO PROSTHETIC VALVE: NO PACEMAKER: NO MEASUREMENTS (cm) DIASTOLIC (NORMALS) SYSTOLIC (NORMALS) IVSd 1.1 (0.6-1.2) LA Diam 4.3 (1.9-4.0) LVEF 55-60% LVIDd 3.6 (3.5-5.7) LVIDs 2.7 (2.0-3.5) %FS 26% LVPWd 1.0 (0.6-1.2) Ao Diam 3.5 (2.0-3.7) 2 DIMENSIONAL ASSESSMENT: RIGHT ATRIUM: ENLARGED LEFT ATRIUM: ENLARGED RIGHT VENTRICLE: DILATED RIGHT VENTRICLE LEFT VENTRICLE: NORMAL TRICUSPID VALVE: MODERATE TRICUSPID REGURGITATION MITRAL VALVE: MILD MITRAL REGURGITATION PULMONIC VALVE: MODERATE PULMONIC INSUFFICIENCY AORTIC VALVE: MILD AORTIC INSUFFICIENCY PERICARDIAL EFFUSION: NONE AORTIC ROOT: NORMAL LEFT VENTRICULAR WALL MOTION: NORMAL. DOPPLER/COLOR FLOW: SEE BELOW. COMMENTS: NORMAL LEFT VENTRICULAR EJECTION FRACTION 55-60%. DILATED RIGHT VENTRICLE WITH MID RIGHT VENTRICLE DYSFUNCTION. SEVERE PULMONARY HYPERTENSION WITH RIGHT VENTRICULAR SYSTOLIC PRESURE GREATER THAN 100mmHg. MODERATE TRICUSPID REGURGITATION, MODERATE PULMONIC INSUFFICIENCY. MILD MITRAL REGURGITATION, MILD AORTIC INSUFFICIENCY. BIATRIAL ENLARGEMENT TECHNOLOGIST: DARIUS GANDHI
[2022-03-05] MEDS: METFORMIN ER 500 MG TAB PO SCH (17:49)
[2022-03-05] MEDS: TRAZODONE 50 MG TABLET PO SCH (20:50)
[2022-03-05] MEDS: ATORVASTATIN 80 MG TAB PO SCH (20:50)
--- NOTE | 2022-03-05 21:15 | P.PN ---
Subjective Date of Service: 03/05/22 Chief Complaint: Respiratory failure Subjective: No new changes, No C/O voiced FERNANDA COOL IS END STAGE COPD PATIENT WHO IS ON HIGH FLOW OXYGEN NOW AND NOT MUCH IMPROVED. ER STAFF CALLED THE WRONG DOCTOR FOR ADMISSION AND I WAS MADE AWARE OF ONLY LAST NIGHT THAT FERNANDA IS IN [facility]. I TOD THEM I WILL SEE HIM FROM TODAY. FERNANDA IS ABOUT THE SAME. I THOUGHT HE WILL NEED LTAC. I TALKED HIM TODAY AND HE IS WILLING TO GO TO LTAC. STILL ON HIGH FLOW OXYGEN. Review of Systems 10-point ROS is otherwise unremarkable Respiratory: Shortness of Breath Physical Examination - Vital Signs Temperature: 97.7 F Blood Pressure: 103/70 Pulse: 74 Respirations: 17 Pulse Ox (%): 95 - Physical Exam General: Oriented x3, Moderate distress (HYPOXIC AT REST.) HEENT: Atraumatic, PERRLA, EOMI Neck: Supple, JVD not distended Respiratory: Diminished Cardiovascular: Regular rate/rhythm, Normal S1 S2 Gastrointestinal: Normal bowel sounds, No tenderness Musculoskeletal: No tenderness Integumentary: No rashes Neurological: Normal speech, Normal tone, Normal affect Lymphatics: No axilla or inguinal lymphadenopathy - Studies Medications List Reviewed: Yes Assessment And Plan - Current Problems (Diagnosis) (1) Acute respiratory failure with hypoxia Current Visit: Yes Status: Acute Plan: SEVERE ISSUES. MAY NEED LTAC. HE CARRIES POOR PROGNOSIS. CONTINUE STEROIDS NEBS AND ABX. REFER TO LTAC ORDER SENT TO SW TEAM. STABLE FOR DISCHARGE TO LTAC. WE ARE WAITING FOR LTAC APPROVAL HE HAS NOT IMPROVED IN LAST 3 DAYS I SAW HIM DAUGHTER WANTS HIM CLOSER TO WHERE SHE LIVES IN [place]. (2) A-fib Current Visit: No Status: Chronic Plan: RATE CONTROLLED. ON ELIUQIS. (3) COPD exacerbation Current Visit: No Status: Chronic Plan: ABOVE, THIS IS THE MAIN REASON FOR RESPIRATORY FAILURE.
[2022-03-06] MEDS: LEVALBUTEROL 1.25 MG/3 ML NEB NEB SCH ×4 (01:10→20:00)
[2022-03-06] MEDS: IPRATROPIUM BROM 0.5MG/2.5ML NEB SCH ×4 (01:10→20:00)
[2022-03-06 03:55] LABS: Absolute Lymphocytes (CBC) 0.3 K/uL (0.7-4.9); Hematocrit 41.4 % (39.6-49.0); Lymphocytes % 3.4 % (15.3-44.8); MCV 93.5 fL (80-100); MPV 8.7 fL (7.6-11.3); RBC Red Blood Cell Count 4.43 M/uL (4.33-5.43)
[2022-03-06 04:09] LABS: Potassium 4.4 mmol/L (3.5-5.1)
[2022-03-06] MEDS: INSULIN -REGULAR HUMAN 50 UNIT/0.5 ML ML SQ SCH ×4 (07:30→21:48)
--- NOTE | 2022-03-06 08:31 | RAD REPORT ---
EXAM DESCRIPTION: RAD - Chest Single View - 03/06/2022 6:00 am CLINICAL HISTORY: Respiratory failure Chest pain. COMPARISON: Chest Single View dated 03/05/2022; Chest Single View dated 02/27/2022; Chest Pa And Lat ( 2 Views) dated 08/29/2021; Chest Single View dated 02/20/2021 FINDINGS: Portable technique limits examination quality. Moderate bilateral pulmonary opacities are seen without significant change since yesterday's study. T he heart is mildly to moderately enlarged. No displaced fractures. IMPRESSION: Stable chest since yesterday's examination.
[2022-03-06] MEDS: DULERA 200/5 (MOMETASONE/FORMOTEROL) INHALER IH SCH ×4 (09:02→22:07)
[2022-03-06] MEDS: GABAPENTIN 300 MG CAP PO SCH ×3 (09:03→21:47)
[2022-03-06] MEDS: AMOX/K CLAV 875 MG TAB PO SCH (09:03)
[2022-03-06] MEDS: AZITHROMYCIN 250 MG TAB PO SCH (09:03)
[2022-03-06] MEDS: METOPROLOL XL 25 MG TAB PO SCH ×2 (09:03→21:48)
[2022-03-06] MEDS: APIXABAN 5 MG TABLET PO SCH ×2 (09:03→21:51)
[2022-03-06] MEDS: predniSONE 20 MG TAB PO SCH ×2 (09:03→21:47)
[2022-03-06] MEDS: DIGOXIN 0.125 MG TABLET PO SCH (09:03)
--- NOTE | 2022-03-06 12:06 | P.PN ---
Subjective Date of Service: 03/06/22 Chief Complaint: Respiratory failure Subjective: Improving (Patient is improving oxygen requirements are declining no new complaint) Review of Systems Unremarkable Respiratory: Shortness of Breath Physical Examination - Vital Signs Temperature: 97.6 F Blood Pressure: 118/71 Pulse: 75 Respirations: 18 Pulse Ox (%): 90 - Physical Exam General: Alert, In no apparent distress Respiratory: Clear to auscultation bilaterally, Diminished, Expiratory wheezes Cardiovascular: No edema, Normal S1 S2 - Studies Medications List Reviewed: Yes Assessment And Plan - Current Problems (Diagnosis) (1) Acute respiratory failure with hypoxia Current Visit: Yes Status: Acute Plan: Patient is gradually improving oxygen requirements are declining chemistries reviewed labs reviewed no change in medications DC Augmentin continue with Zithromax for anti-inflammatory reason oxygen requirements have declined to 50% prominent interstitial changes 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
[2022-03-06] MEDS: METFORMIN ER 500 MG TAB PO SCH (16:50)
--- NOTE | 2022-03-06 20:59 | P.PN ---
Subjective Date of Service: 03/06/22 Chief Complaint: Respiratory failure Subjective: No new changes FERNANDA COOL IS END STAGE COPD PATIENT WHO IS ON HIGH FLOW OXYGEN NOW AND NOT MUCH IMPROVED. ER STAFF CALLED THE WRONG DOCTOR FOR ADMISSION AND I WAS MADE AWARE OF ONLY LAST NIGHT THAT FERNANDA IS IN [facility]. I TOD THEM I WILL SEE HIM FROM TODAY. FERNANDA IS ABOUT THE SAME. I THOUGHT HE WILL NEED LTAC. I TALKED HIM TODAY AND HE IS WILLING TO GO TO LTAC. STILL ON HIGH FLOW OXYGEN. HEIS FATIGUED, SHORT OF BREATH AT REST. NOT GETTING BETTER. Review of Systems 10-point ROS is otherwise unremarkable General: Weakness Respiratory: Shortness of Breath Physical Examination - Vital Signs Temperature: 97.8 F Blood Pressure: 100/61 Pulse: 81 Respirations: 18 Pulse Ox (%): 87 - Physical Exam General: Alert, Oriented x3, Moderate distress HEENT: Atraumatic, PERRLA, EOMI Neck: Supple, JVD not distended Respiratory: Diminished Cardiovascular: Regular rate/rhythm, Normal S1 S2 Gastrointestinal: Normal bowel sounds, No tenderness Musculoskeletal: No tenderness Integumentary: No rashes Neurological: Normal speech, Normal tone, Normal affect Lymphatics: No axilla or inguinal lymphadenopathy - Studies Medications List Reviewed: Yes Assessment And Plan - Current Problems (Diagnosis) (1) Acute respiratory failure with hypoxia Current Visit: Yes Status: Acute Plan: SEVERE ISSUES. MAY NEED LTAC. HE CARRIES POOR PROGNOSIS. CONTINUE STEROIDS NEBS AND ABX. REFER TO LTAC ORDER SENT TO SW TEAM. STABLE FOR DISCHARGE TO LTAC. WE ARE WAITING FOR LTAC APPROVAL HE HAS NOT IMPROVED IN LAST 3 DAYS I SAW HIM DAUGHTER WANTS HIM CLOSER TO WHERE SHE LIVES IN [place]. I TALKED TO HIM TODAY ABOUT HIS LUNGS. I ASKED HIM IF HE KNEW HOW SERIOUS IS HIS CONDITION. HE WAS NOT SURE. I TOLD HIM THAT HE IS ON VERY HIGH OXYGEN SUP PLEMENTATION AND THERE HIGH CHANCESS THAT HE WILL NOT IMPROVE. HIS DAUGHTER IS NOT AT BEDSIDE AND KNOWING FROM PAST NOT READY TO HEAR THIS. (2) A-fib Current Visit: No Status: Chronic Plan: RATE CONTROLLED. ON ELIUS. Qualifiers: Atrial fibrillation type: permanent Qualified Code(s): I48.21 - Permanent atrial fibrillation (3) COPD exacerbation Current Visit: No Status: Chronic Plan: ABOVE, THIS IS THE MAIN REASON FOR RESPIRATORY FAILURE.
[2022-03-06] MEDS: TRAZODONE 50 MG TABLET PO SCH (21:47)
[2022-03-06] MEDS: ATORVASTATIN 80 MG TAB PO SCH (21:51)
[2022-03-07] MEDS: IPRATROPIUM BROM 0.5MG/2.5ML NEB SCH ×4 (02:30→20:50)
[2022-03-07] MEDS: LEVALBUTEROL 1.25 MG/3 ML NEB NEB SCH ×4 (02:30→20:50)
[2022-03-07 04:04] LABS: Absolute Lymphocytes (CBC) 0.4 K/uL (0.7-4.9); Hematocrit 40.9 % (39.6-49.0); Lymphocytes % 4.2 % (15.3-44.8); MCV 93.8 fL (80-100); MPV 8.8 fL (7.6-11.3); RBC Red Blood Cell Count 4.36 M/uL (4.33-5.43)
[2022-03-07 04:16] LABS: Magnesium 2.3 mg/dL (1.8-2.4); Potassium 4.5 mmol/L (3.5-5.1)
[2022-03-07] MEDS: INSULIN -REGULAR HUMAN 50 UNIT/0.5 ML ML SQ SCH ×4 (07:30→21:49)
[2022-03-07] MEDS: predniSONE 20 MG TAB PO SCH ×2 (08:57→21:48)
[2022-03-07] MEDS: AZITHROMYCIN 250 MG TAB PO SCH (08:57)
[2022-03-07] MEDS: APIXABAN 5 MG TABLET PO SCH ×2 (08:57→21:48)
[2022-03-07] MEDS: GABAPENTIN 300 MG CAP PO SCH ×3 (08:57→21:48)
[2022-03-07] MEDS: METOPROLOL XL 25 MG TAB PO SCH ×2 (08:57→21:48)
[2022-03-07] MEDS: DULERA 200/5 (MOMETASONE/FORMOTEROL) INHALER IH SCH ×2 (08:58→21:00)
[2022-03-07] MEDS: DIGOXIN 0.125 MG TABLET PO SCH (08:58)
--- NOTE | 2022-03-07 12:51 | P.PN ---
Subjective Date of Service: 03/07/22 Chief Complaint: Respiratory failure Subjective: No new changes FERNANDA COOL IS END STAGE COPD PATIENT WHO IS ON HIGH FLOW OXYGEN NOW AND NOT MUCH IMPROVED. ER STAFF CALLED THE WRONG DOCTOR FOR ADMISSION AND I WAS MADE AWARE OF ONLY LAST NIGHT THAT FERNANDA IS IN [facility]. I TOD THEM I WILL SEE HIM FROM TODAY. FERNANDA IS ABOUT THE SAME. I THOUGHT HE WILL NEED LTAC. I TALKED HIM TODAY AND HE IS WILLING TO GO TO LTAC. STILL ON HIGH FLOW OXYGEN. HEIS FATIGUED, SHORT OF BREATH AT REST. NOT GETTING BETTER. NOT DOING ANY BETTER. NO CHEST PAIN. Review of Systems Respiratory: Shortness of Breath Physical Examination - Vital Signs Temperature: 97.4 F Blood Pressure: 118/58 Pulse: 71 Respirations: 16 Pulse Ox (%): 90 - Physical Exam General: Oriented x3, Moderate distress, Severe distress HEENT: Atraumatic, PERRLA, EOMI Neck: Supple, JVD not distended Respiratory: Diminished Cardiovascular: Regular rate/rhythm, Normal S1 S2 Gastrointestinal: Normal bowel sounds, No tenderness Musculoskeletal: No tenderness Integumentary: No rashes Neurological: Normal speech, Normal tone, Normal affect Lymphatics: No axilla or inguinal lymphadenopathy - Studies Medications List Reviewed: Yes Assessment And Plan - Current Problems (Diagnosis) (1) Acute respiratory failure with hypoxia Current Visit: Yes Status: Acute Plan: SEVERE ISSUES. ADVISE LTAC WE ARE STILL WAITING FOR APPROVAL HE IS NOT DOING GOOD. HIS DAUGHTER PROBABLY IS NOT DOING TO ACCEPT IT WELL. I HAVE TRIED TO TALKED TO HER BEFORE. (2) A-fib Current Visit: No Status: Chronic Plan: RATE CONTROLLED. ON ELIUQIS. Qualifiers: Atrial fibrillation type: permanent Qualified Code(s): I48.21 - Permanent a trial fibrillation (3) COPD exacerbation Current Visit: No Status: Chronic Plan: ABOVE, THIS IS THE MAIN REASON FOR RESPIRATORY FAILURE.
[2022-03-07] MEDS: METFORMIN ER 500 MG TAB PO SCH (17:01)
[2022-03-07] MEDS: POLYETHYL GLY 3350 17 GM/DOSE PO PRN (17:26)
[2022-03-07] MEDS: ATORVASTATIN 80 MG TAB PO SCH (21:48)
[2022-03-07] MEDS: TRAZODONE 50 MG TABLET PO SCH (21:48)
[2022-03-08] MEDS: IPRATROPIUM BROM 0.5MG/2.5ML NEB SCH ×4 (01:55→20:05)
[2022-03-08] MEDS: LEVALBUTEROL 1.25 MG/3 ML NEB NEB SCH ×4 (01:55→20:05)
[2022-03-08 06:11] LABS: Absolute Lymphocytes (CBC) 0.4 K/uL (0.7-4.9); Hematocrit 41.2 % (39.6-49.0); Lymphocytes % 4.3 % (15.3-44.8); MCV 92.5 fL (80-100); MPV 8.9 fL (7.6-11.3); RBC Red Blood Cell Count 4.45 M/uL (4.33-5.43)
[2022-03-08 06:24] LABS: Potassium 4.6 mmol/L (3.5-5.1)
[2022-03-08] MEDS: INSULIN -REGULAR HUMAN 50 UNIT/0.5 ML ML SQ SCH ×4 (07:30→21:33)
[2022-03-08] MEDS: METOPROLOL XL 25 MG TAB PO SCH ×2 (08:24→21:00)
[2022-03-08] MEDS: AZITHROMYCIN 250 MG TAB PO SCH (08:24)
[2022-03-08] MEDS: predniSONE 20 MG TAB PO SCH ×2 (08:25→21:33)
[2022-03-08] MEDS: APIXABAN 5 MG TABLET PO SCH ×2 (08:25→21:32)
[2022-03-08] MEDS: DIGOXIN 0.125 MG TABLET PO SCH (08:25)
[2022-03-08] MEDS: GABAPENTIN 300 MG CAP PO SCH ×3 (08:25→21:32)
[2022-03-08] MEDS: DULERA 200/5 (MOMETASONE/FORMOTEROL) INHALER IH SCH ×2 (09:24→21:35)
[2022-03-08 14:54] LABS: Arterial Blood Carboxyhemoglob 1.6 % (0-1.5); Blood Gas Oxyhemoglobin 85.1 % (94-97); Blood O2 Saturation 87.3 % (92-98.5)
[2022-03-08] MEDS: METFORMIN ER 500 MG TAB PO SCH (16:53)
[2022-03-08] MEDS: TRAZODONE 50 MG TABLET PO SCH (21:33)
[2022-03-08] MEDS: ATORVASTATIN 80 MG TAB PO SCH (21:33)
[2022-03-09] MEDS: LEVALBUTEROL 1.25 MG/3 ML NEB NEB SCH ×4 (01:35→19:20)
[2022-03-09] MEDS: IPRATROPIUM BROM 0.5MG/2.5ML NEB SCH ×4 (01:35→19:20)
[2022-03-09 06:14] LABS: Absolute Lymphocytes (CBC) 0.4 K/uL (0.7-4.9); Hematocrit 43.1 % (39.6-49.0); Lymphocytes % 4.3 % (15.3-44.8); MCV 94.8 fL (80-100); MPV 8.8 fL (7.6-11.3); RBC Red Blood Cell Count 4.54 M/uL (4.33-5.43)
[2022-03-09 06:21] LABS: Potassium 4.6 mmol/L (3.5-5.1)
[2022-03-09] MEDS: INSULIN -REGULAR HUMAN 50 UNIT/0.5 ML ML SQ SCH ×4 (07:30→22:22)
[2022-03-09 07:44] LABS: Blood Morphology Comment NOT SEEN (NOT SEEN); Platelet Estimate ADEQ
[2022-03-09] MEDS: DULERA 200/5 (MOMETASONE/FORMOTEROL) INHALER IH SCH ×2 (08:51→22:34)
[2022-03-09] MEDS: APIXABAN 5 MG TABLET PO SCH ×2 (08:52→22:24)
[2022-03-09] MEDS: METOPROLOL XL 25 MG TAB PO SCH (08:52)
[2022-03-09] MEDS: DIGOXIN 0.125 MG TABLET PO SCH (08:52)
[2022-03-09] MEDS: predniSONE 20 MG TAB PO SCH ×2 (08:52→22:21)
[2022-03-09] MEDS: GABAPENTIN 300 MG CAP PO SCH ×3 (08:53→22:21)
--- NOTE | 2022-03-09 11:03 | P.PN ---
Subjective Date of Service: 03/08/22 Chief Complaint: Respiratory failure Subjective: No new changes FERNANDA IS NOT DOING ANY BETTER. INSURANCE COMPANY NEEDS TO APPROVE LTAC FOR HIM. HE IS ON HIGH FLOW OXYGEN. THIS AM HE HAD LOW BP WITH HYPOXIA. HE IS DOING SOME BETTER IN AFTERNOON. Review of Systems 10-point ROS is otherwise unremarkable General: Weakness Respiratory: Shortness of Breath Physical Examination - Vital Signs Temperature: 97.4 F Blood Pressure: 129/73 Pulse: 63 Respirations: 18 Pulse Ox (%): 100 - Physical Exam General: Oriented x3, Moderate distress HEENT: Atraumatic, PERRLA, EOMI Neck: Supple, JVD not distended Respiratory: Diminished Cardiovascular: Regular rate/rhythm, Normal S1 S2 Musculoskeletal: No tenderness Integumentary: No rashes Neurological: Normal speech, Normal tone, Normal affect Lymphatics: No axilla or inguinal lymphadenopathy - Studies Medications List Reviewed: Yes Assessment And Plan - Current Problems (Diagnosis) (1) Acute respiratory failure with hypoxia Current Visit: Yes Status: Acute Plan: SEVERE ISSUES. ADVISE LTAC WE ARE STILL WAITING FOR APPROVAL I AM NOT SURE WHY [facility] [employer] IS TAKING SUCH LONG TIME FOR LTAC. HE IS SEVERELY DYSPNEIC WITHOUT HIGH FLOW OXYGEN. HE HAS SEVERE FIBROSIS WITH COPD WITH SEVERE PULMONARY HYPERTENSION. CONTINUE STEROIDS, NEBS AND OXYGEN. (2) A-fib Current Visit: No Status: Chronic Plan: RATE CONTROLLED. ON ELIUQIS. Qualifiers: Atrial fibrillation type: permanent Qualified Code(s): I48.21 - Permanent atrial fibrillation (3) COPD exacerbation Current Visit: No Status: Chronic Plan: ABOVE, THIS IS THE MAIN REASON FOR RESPIRATORY FAILURE. (4) Hypotension Current Visit: Yes Status: Acute Plan: IS RELATED TO RESPIRATORY FAILURE. I WILL REDUCE METOPROLOL DOSE TO EVEN A SMALLER DOSE. HE IS HYDRATING HIMSELF.
--- NOTE | 2022-03-09 11:06 | P.PN ---
Subjective Date of Service: 03/09/22 Chief Complaint: Respiratory failure Subjective: No new changes FERNANDA IS NOT DOING ANY BETTER. INSURANCE COMPANY NEEDS TO APPROVE LTAC FOR HIM. HE IS ON HIGH FLOW OXYGEN. THIS AM HE HAD LOW BP WITH HYPOXIA. HE IS DOING SOME BETTER IN AFTERNOON. HE IS ABOUT THE SAME. CONSTIPATION TODAY. Review of Systems 10-point ROS is otherwise unremarkable General: Weakness Respiratory: Shortness of Breath Physical Examination - Vital Signs Temperature: 97.4 F Blood Pressure: 129/73 Pulse: 63 Respirations: 18 Pulse Ox (%): 100 - Physical Exam General: Moderate distress, Severe distress HEENT: Atraumatic, PERRLA, EOMI Neck: Supple, JVD not distended Respiratory: Diminished Cardiovascular: Regular rate/rhythm, Normal S1 S2 Gastrointestinal: Normal bowel sounds, No tenderness Musculoskeletal: No tenderness Integumentary: No rashes Neurological: Normal speech, Normal tone, Normal affect Lymphatics: No axilla or inguinal lymphadenopathy - Studies Medications List Reviewed: Yes Assessment And Plan - Current Problems (Diagnosis) (1) Acute respiratory failure with hypoxia Current Visit: Yes Status: Acute Plan: SEVERE ISSUES. ADVISE LTAC WE ARE STILL WAITING FOR APPROVAL I AM NOT SURE WHY [employer] IS TAKING SUCH LONG TIME FOR LTAC. HE IS SEVERELY DYSPNEIC WITHOUT HIGH FLOW OXYGEN. HE HAS SEVERE FIBROSIS WITH COPD WITH SEVERE PULMONARY HYPERTENSION. CONTINUE STEROIDS, NEBS AND OXYGEN. STABLE ON HIGH FLOW OXYGEN. O2 SAT IS 87% ON 20 LT HIGH FLOW OXYGEN. DISCUSSED WITH DR. AGUILAR. BIPAP PRN. NOT MUCH HE CAN DO FOR HIM. (2) A-fib Current Visit: No Status: Chronic Plan: RATE CONTROLLED. ON ELIUQIS. REDUCE METOPROLOL TO CUT DOWN HYPOTENSION. Qualifiers: Atrial fibrillation type: permanent Qualified Code(s): I48.21 - Permanent atrial fibrillation (3) COPD exacerbation Current Visit: No Status: Chronic Plan: ABOVE, THIS IS THE MAIN REASON FOR RESPIRATORY FAILURE. (4) Hypotension Current Visit: Yes Status: Acute Plan: IS RELATED TO RESPIRATORY FAILURE. I WILL REDUCE METOPROLOL DOSE TO EVEN A SMALLER DOSE. HE IS HYDRATING HIMSELF.
[2022-03-09] MEDS: SILDENAFIL CITRATE 20 MG TABLET PO SCH (16:10)
--- NOTE | 2022-03-09 16:12 | P.PN ---
Subjective Date of Service: 03/09/22 Chief Complaint: Respiratory failure Subjective: Improving (Patient is feeling better still continues to remain very hypoxic severe pulmonary hypertension) Review of Systems General: Weakness Respiratory: Shortness of Breath Physical Examination - Vital Signs Temperature: 97.7 F Blood Pressure: 98/56 Pulse: 76 Respirations: 18 Pulse Ox (%): 93 - Physical Exam General: Alert, In no apparent distress, Oriented x3, Mild distress Respiratory: Expiratory wheezes Cardiovascular: No edema, Regular rate/rhythm, Normal S1 S2 Gastrointestinal: Normal bowel sounds, Soft and benign Musculoskeletal: No clubbing, No swelling - Studies Medications List Reviewed: Yes Assessment And Plan - Current Problems (Diagnosis) (1) Acute respiratory failure with hypoxia Current Visit: Yes Status: Acute Plan: Patient continues to remain very hypoxic right now is on 60% 20 L pH is 7.4 PCO2 43 PO2 55.7 he continues to remain very hypoxic terminal COPD with severe cor pulmonale (2) Pulmonary hypertension Current Visit: Yes Status: Acute Plan: Patient has severe pulmonary hypertension with right ventricular dilatation no thromboemboli visible on CT scan blood pressure is on the lower side trial of low-dose sildenafil has been started 10 mg once a day
[2022-03-09] MEDS: METFORMIN ER 500 MG TAB PO SCH (17:30)
[2022-03-09] MEDS: LACTULOSE 20 GM/30 ML UCUP PO SCH (22:18)
[2022-03-09] MEDS: TRAZODONE 50 MG TABLET PO SCH (22:21)
[2022-03-09] MEDS: ATORVASTATIN 80 MG TAB PO SCH (22:24)
[2022-03-10] MEDS: LEVALBUTEROL 1.25 MG/3 ML NEB NEB SCH ×4 (02:15→19:55)
[2022-03-10] MEDS: IPRATROPIUM BROM 0.5MG/2.5ML NEB SCH ×4 (02:15→19:55)
[2022-03-10 04:26] LABS: Absolute Lymphocytes (CBC) 0.4 K/uL (0.7-4.9); Hematocrit 41.3 % (39.6-49.0); Lymphocytes % 4.1 % (15.3-44.8); MCV 93.2 fL (80-100); MPV 8.6 fL (7.6-11.3); RBC Red Blood Cell Count 4.44 M/uL (4.33-5.43)
[2022-03-10 04:46] LABS: Potassium 4.2 mmol/L (3.5-5.1)
[2022-03-10] MEDS: METOPROLOL XL 25 MG TAB PO SCH (05:46)
[2022-03-10] MEDS: INSULIN -REGULAR HUMAN 50 UNIT/0.5 ML ML SQ SCH ×4 (07:30→21:15)
[2022-03-10] MEDS: SILDENAFIL CITRATE 20 MG TABLET PO SCH (09:00)
[2022-03-10] MEDS: DULERA 200/5 (MOMETASONE/FORMOTEROL) INHALER IH SCH ×2 (09:00→21:14)
[2022-03-10] MEDS: LACTULOSE 20 GM/30 ML UCUP PO SCH ×2 (09:00→21:00)
[2022-03-10] MEDS: GABAPENTIN 300 MG CAP PO SCH ×3 (09:53→21:14)
[2022-03-10] MEDS: predniSONE 20 MG TAB PO SCH ×2 (09:53→21:14)
[2022-03-10] MEDS: APIXABAN 5 MG TABLET PO SCH ×2 (09:53→21:13)
[2022-03-10] MEDS: DIGOXIN 0.125 MG TABLET PO SCH (09:53)
--- NOTE | 2022-03-10 12:09 | P.PN ---
Subjective Date of Service: 03/10/22 Chief Complaint: Respiratory failure Subjective: Improving FERNANDA IS NOT DOING ANY BETTER. INSURANCE COMPANY NEEDS TO APPROVE LTAC FOR HIM. HE IS ON HIGH FLOW OXYGEN. THIS AM HE HAD LOW BP WITH HYPOXIA. HE IS DOING SOME BETTER IN AFTERNOON. HE IS ABOUT THE SAME. CONSTIPATION TODAY. TODAY WE SEE SLIGHT IMPROVEMENT. HE IS ON 10 LT OXYGEN AND AT95% SAT. THIS IS BEFORE VIAGRA STARTED BY DR. AGUILAR PER OUR DISCUSSION. Review of Systems 10-point ROS is otherwise unremarkable General: Weakness Respiratory: Shortness of Breath Physical Examination - Vital Signs Temperature: 97.1 F Blood Pressure: 110/70 Pulse: 67 Respirations: 18 Pulse Ox (%): 95 - Physical Exam General: Oriented x3, Moderate distress HEENT: Atraumatic, PERRLA, EOMI Neck: Supple, JVD not distended Respiratory: Diminished Cardiovascular: Regular rate/rhythm, Normal S1 S2 Gastrointestinal: Normal bowel sounds, No tenderness Musculoskeletal: No tenderness Integumentary: No rashes Neurological: Normal speech, Normal tone, Normal affect Lymphatics: No axilla or inguinal lymphadenopathy - Studies Medications List Reviewed: Yes Assessment And Plan - Current Problems (Diagnosis) (1) Acute respiratory failure with hypoxia Current Visit: Yes Status: Acute Plan: CONTINUE CURRENT THERAPY WE STILL HAVE NO RESPONSE FROM INSURANCE COMPANY PER DISCHARGE PLANNERS FOR LTAC. O2 10 LT STILL VERY HYPOXIC WITHOUT OXYGEN OR EVEN WITH MINIMAL EXERSION. (2) A-fib Current Visit: No Status: Chronic Plan: RATE CONTROLLED. ON ELIUQIS. REDUCE METOPROLOL TO CUT DOWN HYPOTENSION. Qualifiers: Atrial fibrillation type: permanent Qualified Code(s): I48.21 - Permanent atrial fibrillation (3) COPD exacerbation Current Visit: No Status: Chronic Plan: ABOVE, THIS IS THE MAIN REASON FOR RESPIRATORY FAILURE. (4) Hypotension Current Visit: Yes Status: Acute Plan: IS RELATED TO RESPIRATORY FAILURE. I WILL REDUCE METOPROLOL DOSE TO EVEN A SMALLER DOSE. HE IS HYDRATING HIMSELF.
[2022-03-10] MEDS: METFORMIN ER 500 MG TAB PO SCH (16:35)
[2022-03-10] MEDS: ATORVASTATIN 80 MG TAB PO SCH (21:13)
[2022-03-10] MEDS: TRAZODONE 50 MG TABLET PO SCH (21:14)
[2022-03-11] MEDS: LEVALBUTEROL 1.25 MG/3 ML NEB NEB SCH ×4 (01:25→20:00)
[2022-03-11] MEDS: METOPROLOL XL 25 MG TAB PO SCH (05:49)
[2022-03-11] MEDS: INSULIN -REGULAR HUMAN 50 UNIT/0.5 ML ML SQ SCH ×4 (07:30→22:12)
[2022-03-11] MEDS: APIXABAN 5 MG TABLET PO SCH ×2 (08:37→22:11)
[2022-03-11] MEDS: DIGOXIN 0.125 MG TABLET PO SCH (08:37)
[2022-03-11] MEDS: GABAPENTIN 300 MG CAP PO SCH ×3 (08:37→22:11)
[2022-03-11] MEDS: predniSONE 20 MG TAB PO SCH (08:38)
[2022-03-11] MEDS: LACTULOSE 20 GM/30 ML UCUP PO SCH ×5 (08:38→22:17)
[2022-03-11] MEDS: DULERA 200/5 (MOMETASONE/FORMOTEROL) INHALER IH SCH ×2 (08:38→22:16)
[2022-03-11] MEDS ORDERED: SILDENAFIL CITRATE 20 MG TABLET PO SCH (09:00)
--- NOTE | 2022-03-11 12:19 | P.PN ---
Subjective Date of Service: 03/11/22 Chief Complaint: Respiratory failure with cor pulmonale Subjective: Improving (Patient is improving subjectively feeling better oxygen requirements declining) Review of Systems General: Weakness Respiratory: Shortness of Breath Physical Examination - Vital Signs Temperature: 97.0 F Blood Pressure: 118/72 Pulse: 66 Respirations: 16 Pulse Ox (%): 91 - Physical Exam General: Alert, Oriented x3 Respiratory: Diminished, Expiratory wheezes Cardiovascular: No edema, Regular rate/rhythm - Studies Medications List Reviewed: Yes Assessment And Plan - Current Problems (Diagnosis) (1) Acute respiratory failure with hypoxia Current Visit: Yes Status: Acute Plan: patient is improving. Oxygen requirements declining (2) Pulmonary hypertension Current Visit: Yes Status: Acute Plan: Patient is tolerating sildenafil increase it to 20 mg twice a day vital signs stable Plan to discharge in: Greater than 2 days
[2022-03-11] MEDS: METFORMIN ER 500 MG TAB PO SCH (17:42)
[2022-03-11] MEDS: predniSONE 10 MG TAB PO SCH (22:11)
[2022-03-11] MEDS: ATORVASTATIN 80 MG TAB PO SCH (22:11)
[2022-03-11] MEDS: SILDENAFIL CITRATE 20 MG TABLET PO SCH (22:12)
[2022-03-11] MEDS: TRAZODONE 50 MG TABLET PO SCH (23:14)
[2022-03-12] MEDS: LEVALBUTEROL 1.25 MG/3 ML NEB NEB SCH ×3 (02:00→14:00)
[2022-03-12] MEDS: METOPROLOL XL 25 MG TAB PO SCH (05:06)
[2022-03-12] MEDS: INSULIN -REGULAR HUMAN 50 UNIT/0.5 ML ML SQ SCH ×4 (07:30→21:36)
[2022-03-12] MEDS: LACTULOSE 20 GM/30 ML UCUP PO SCH ×3 (09:00→21:34)
[2022-03-12] MEDS: APIXABAN 5 MG TABLET PO SCH ×2 (09:34→21:36)
[2022-03-12] MEDS: GABAPENTIN 300 MG CAP PO SCH ×3 (09:34→21:35)
[2022-03-12] MEDS: predniSONE 10 MG TAB PO SCH ×2 (09:35→21:35)
[2022-03-12] MEDS: DULERA 200/5 (MOMETASONE/FORMOTEROL) INHALER IH SCH ×2 (09:36→21:35)
[2022-03-12] MEDS: SILDENAFIL CITRATE 20 MG TABLET PO SCH ×2 (09:38→21:49)
[2022-03-12] MEDS: DIGOXIN 0.125 MG TABLET PO SCH (09:43)
--- NOTE | 2022-03-12 09:59 | RAD REPORT ---
EXAM DESCRIPTION: US - UPPER EXTREMITY VENOUS UNILATE - 03/12/2022 8:56 am COMPARISON: None. TECHNIQUE: Real-time sonographic evaluation of the right upper extremity deep venous system was perf ormed. FINDINGS: Normal compressibility, flow augmentation, phasic flow and spontaneous flow is identified in the right upper extremity deep venous system. No intraluminal filling defects seen. IMPRESSION: No DVT in the right upper extremity.
--- NOTE | 2022-03-12 12:10 | P.PN ---
Subjective Date of Service: 03/12/22 Chief Complaint: Respiratory failure with cor pulmonale Subjective: Improving (Patient's breathing is improving still on high flow scheduled to be transferred to an LTAC) Review of Systems General: Weakness Respiratory: Shortness of Breath Physical Examination - Vital Signs Temperature: 97.0 F Blood Pressure: 102/58 Pulse: 48 Respirations: 20 Pulse Ox (%): 99 - Physical Exam General: Alert, Cooperative, Mild distress Respiratory: Clear to auscultation bilaterally, Diminished Cardiovascular: No edema, Normal S1 S2 - Studies Medications List Reviewed: Yes Assessment And Plan - Current Problems (Diagnosis) (1) Acute respiratory failure with hypoxia Current Visit: Yes Status: Acute Plan: Condition stable steadily improving stable for transfer currently on 10 L on nasal cannula high flow oxygen labs and meds all reviewed (2) Pulmonary hypertension Current Visit: Yes Status: Acute Plan: Patient is tolerating tolerating sildenafil
[2022-03-12] MEDS: METFORMIN ER 500 MG TAB PO SCH (17:30)
--- NOTE | 2022-03-12 20:52 | P.PN ---
Subjective Date of Service: 03/12/22 Chief Complaint: Respiratory failure with cor pulmonale Subjective: No new changes FERNANDA IS NOT DOING ANY BETTER. INSURANCE COMPANY NEEDS TO APPROVE LTAC FOR HIM. HE IS ON HIGH FLOW OXYGEN. THIS AM HE HAD LOW BP WITH HYPOXIA. HE IS DOING SOME BETTER IN AFTERNOON. HE IS ABOUT THE SAME. CONSTIPATION TODAY. TODAY WE SEE SLIGHT IMPROVEMENT. HE IS ON 10 LT OXYGEN AND AT95% SAT. THIS IS BEFORE VIAGRA STARTED BY DR. AGUILAR PER OUR DISCUSSION. I TALKED TO THE INSURANCE DOCTOR YESTERDAY AND AFTER LONG DISCUSSION SHE APPROVED TRANSFER TO LTAC BUT NOW WE ARE WAITING FOR THE BED. HE IS STABLE WITH CRITICAL CONDITION. Physical Examination - Vital Signs Temperature: 97.7 F Blood Pressure: 102/53 Pulse: 64 Respirations: 17 Pulse Ox (%): 95 - Physical Exam General: Oriented x3, Moderate distress HEENT: Atraumatic, PERRLA, EOMI Neck: Supple, JVD not distended Respiratory: Diminished Cardiovascular: Regular rate/rhythm, Normal S1 S2 Gastrointestinal: Normal bowel sounds, No tenderness Musculoskeletal: No tenderness Integumentary: No rashes Neurological: Normal speech, Normal tone, Normal affect Lymphatics: No axilla or inguinal lymphadenopathy - Studies Medications List Reviewed: Yes Assessment And Plan - Current Problems (Diagnosis) (1) Acute respiratory failure with hypoxia Current Visit: Yes Status: Acute Plan: CONTINUE CURRENT THERAPY WE STILL HAVE NO RESPONSE FROM INSURANCE COMPANY PER DISCHARGE PLANNERS FOR LTAC. O2 10 LT STILL VERY HYPOXIC WITHOUT OXYGEN OR EVEN WITH MINIMAL EXERSION. WAITING FOR LTAC BED. ABOVE. STILL CARRIES POOR PROGNOSIS. (2) A-fib Current Visit: No Status: Chronic Plan: RATE CONTROLLED. ON ELIUQIS. REDUCE METOPROLOL TO CUT DOWN HYPOTENSION. Qualifiers: Atrial fibrillation type: permanent Qualified Code(s): I48.21 - Permanent atrial fibrillation (3) COPD exacerbation Current Visit: No Status: Chronic Plan: ABOVE, THIS IS THE MAIN REASON FOR RESPIRATORY FAILURE. (4) Hypotension Current Visit: Yes Status: Acute Plan: IS RELATED TO RESPIRATORY FAILURE. I WILL REDUCE METOPROLOL DOSE TO EVEN A SMALLER DOSE. HE IS HYDRATING HIMSELF.
--- NOTE | 2022-03-12 21:03 | P.PN ---
Subjective Date of Service: 03/11/22 Chief Complaint: Respiratory failure with cor pulmonale Subjective: No new changes FERNANDA IS NOT DOING ANY BETTER. INSURANCE COMPANY NEEDS TO APPROVE LTAC FOR HIM. HE IS ON HIGH FLOW OXYGEN. THIS AM HE HAD LOW BP WITH HYPOXIA. HE IS DOING SOME BETTER IN AFTERNOON. I TALKED TO THE INSURANCE DOCTOR YESTERDAY AND AFTER LONG DISCUSSION SHE APPROVED TRANSFER TO LTAC BUT NOW WE ARE WAITING FOR THE BED. HE IS STABLE WITH CRITICAL CONDITION. Physical Examination - Vital Signs Temperature: 97.7 F Blood Pressure: 102/53 Pulse: 64 Respirations: 17 Pulse Ox (%): 95 - Physical Exam General: Oriented x3, Moderate distress HEENT: Atraumatic, PERRLA, EOMI Neck: Supple, JVD not distended Respiratory: Diminished Cardiovascular: Regular rate/rhythm, Normal S1 S2 Gastrointestinal: Normal bowel sounds, No tenderness Musculoskeletal: No tenderness Integumentary: No rashes Neurological: Normal speech, Normal tone, Normal affect Lymphatics: No axilla or inguinal lymphadenopathy - Studies Medications List Reviewed: Yes Assessment And Plan - Current Problems (Diagnosis) (1) Acute respiratory failure with hypoxia Current Visit: Yes Status: Acute Plan: CONTINUE CURRENT THERAPY WE STILL HAVE NO RESPONSE FROM INSURANCE COMPANY PER DISCHARGE PLANNERS FOR LTAC. O2 10 LT STILL VERY HYPOXIC WITHOUT OXYGEN OR EVEN WITH MINIMAL EXERSION. WAITING FOR LTAC BED. ABOVE. STILL CARRIES POOR PROGNOSIS. CONT MEDS STILL ON 10 LT NC OXYGEN. APPROVAL DONE TODAY ON BY [employer]. (2) A-fib Current Visit: No Status: Chronic Plan: RATE CONTROLLED. ON ELIUQIS. REDUCE METOPROLOL TO CUT DOWN HYPOTENSION. Qualifiers: Atrial fibrillation type: permanent Qualified Code(s): I48.21 - Permanent atrial fibrillation (3) COPD exacerbation Current Visit: No Status: Chronic Plan: ABOVE, THIS IS THE MAIN REASON FOR RESPIRATORY FAILURE. (4) Hypotension Current Visit: Yes Status: Acute Plan: IS RELATED TO RESPIRATORY FAILURE. I WILL REDUCE METOPROLOL DOSE TO EVEN A SMALLER DOSE. HE IS HYDRATING HIMSELF.
[2022-03-12] MEDS: ATORVASTATIN 80 MG TAB PO SCH (21:35)
[2022-03-12] MEDS: TRAZODONE 50 MG TABLET PO SCH (21:35)
[2022-03-13 05:34] LABS: Potassium 4.5 mmol/L (3.5-5.1)
[2022-03-13] MEDS: METOPROLOL XL 25 MG TAB PO SCH (06:00)
[2022-03-13] MEDS: INSULIN -REGULAR HUMAN 50 UNIT/0.5 ML ML SQ SCH ×4 (07:30→20:57)
[2022-03-13] MEDS: LACTULOSE 20 GM/30 ML UCUP PO SCH ×2 (09:00→20:55)
[2022-03-13] MEDS: GABAPENTIN 300 MG CAP PO SCH ×3 (09:00→20:55)
[2022-03-13] MEDS: JUVEN PACKET PO SCH ×2 (09:36→20:55)
[2022-03-13] MEDS: SILDENAFIL CITRATE 20 MG TABLET PO SCH ×2 (09:50→20:55)
[2022-03-13] MEDS: APIXABAN 5 MG TABLET PO SCH ×2 (09:50→20:56)
[2022-03-13] MEDS: DIGOXIN 0.125 MG TABLET PO SCH (09:50)
[2022-03-13] MEDS: DULERA 200/5 (MOMETASONE/FORMOTEROL) INHALER IH SCH ×2 (09:52→20:56)
[2022-03-13] MEDS: predniSONE 10 MG TAB PO SCH ×2 (09:56→20:55)
[2022-03-13 09:59] LABS: Albumin 2.8 g/dL (3.4-5.0); Bilirubin Direct 0.2 mg/dL (0-0.2); Bilirubin Total 0.8 mg/dL (0.2-1.0); Protein, Total 5.5 g/dL (6.4-8.2)
--- NOTE | 2022-03-13 17:47 | P.DS ---
Admission Date: 02/27/22 Discharge Date: 03/13/22 [facility] Discharge Condition: FAIR Reason for Admission: Respiratory failure with cor pulmonale - Problems (1) Acute respiratory failure with hypoxia Current Visit: Yes Status: Acute (2) A-fib Current Visit: No Status: Chronic Qualifiers: Atrial fibrillation type: permanent Qualified Code(s): I48.21 - Permanent atrial fibrillation (3) COPD exacerbation Current Visit: No Status: Chronic (4) Hypotension Current Visit: Yes Status: Acute Hospital Course: FERNANDA HAS SEVERE COPD WITH FIBROSIS. HE COMES IN WITH RESPIRATORY FAILURE AND WITH HELP OF STEROIDS, NEBS AND HIGH FLOW OXYGEN HE SURVIVED. HIS OXYGEN SUPPLY IS DOWN TO 10 LT PER MIN AND HE IS TRANSFERRED TO LTAC FOR FURTHER PULMONARY ASSISTANCE. HE HAS EDEMA THAT IS FROM POOR ALBUMIN AND HE IS ON BOB NOW. HE WILL NOT TOLERATE DIURETICS IS ALREADY RUNNING LOW NORMAL ON BP. HE WILL THIRD SPACE AND GO INTO RENAL FAILURE WITH DIURETICS. HE UNDERSTANDS. Vital Signs/Physical Exam: Temp Pulse Resp BP Pulse Ox 97.0 F 71 24 H 103/68 96 03/13/22 16:00 03/13/22 16:00 03/13/22 16:00 03/13/22 16:00 03/13/22 16:00 Laboratory Data at Discharge: WBC 10.90 K/uL (4.3-10.9) D 03/10/22 03:39 Hgb 13.6 g/dL (13.6-17.9) 03/10/22 03:39 Hct 41.3 % (39.6-49.0) 03/10/22 03:39 Plt Count 131 K/uL (152-406) L 03/10/22 03:39 Sodium 140 mmol/L (136-145) 03/13/22 04:55 Potassium 4.5 mmol/L (3.5-5.1) 03/13/22 04:55 BUN 26 mg/dL (7-18) H 03/13/22 04:55 Creatinine 0.98 mg/dL (0.55-1.3) 03/13/22 04:55 Glucose 121 mg/dL (74-106) H 03/13/22 04:55 Phosphorus 4.2 mg/dL (2.5-4.9) 03/03/22 18:11 Magnesium 2.3 mg/dL (1.8-2.4) 03/07/22 03:16 Total Bilirubin 0.8 mg/dL (0.2-1.0) 03/13/22 04:55 AST 18 U/L (15-37) 03/13/22 04:55 ALT 33 U/L (12-78) 03/13/22 04:55 Alkaline Phosphatase 37 U/L (45-117) L 03/13/22 04:55 Triglycerides 64 mg/dL (<150) 02/28/22 05:20 Cholesterol 89 mg/dL (<200) 02/28/22 05:20 HDL Cholesterol 47 mg/dL (40-60) 02/28/22 05:20 Cholesterol/HDL Ratio 1.89 02/28/22 05:20 Home Medications: Apixaban [Eliquis] 5 mg PO BID 09/29/20 Atorvastatin Calcium [Lipitor] 80 mg PO BEDTIME 09/29/20 Metformin ER [Glucophage ER*] 1,000 mg PO DAILY AFTER SUPPER 09/29/20 Gabapentin 1 cap PO TID 02/20/21 Digoxin [Lanoxin*] 1 tab PO DAILY 02/28/22 Ubidecarenone/Vit E Acet [Co Q-10 100 mg Softgel] 1 each PO DAILY 02/28/22 Sildenafil Citrate [Revatio*] 20 mg PO BID 03/11/22 Trazodone [Desyrel*] 50 mg PO BEDTIME 03/11/22 predniSONE [Deltasone*] 10 mg PO BID tab 03/11/22 Followup: NONE,NONE [Primary Care Provider] -
[2022-03-13] MEDS: METFORMIN ER 500 MG TAB PO SCH (19:10)
[2022-03-13 20:40] VITALS: BP 114/63; TEMP 97.8
[2022-03-13] MEDS: TRAZODONE 50 MG TABLET PO SCH (20:55)
[2022-03-13] MEDS: ATORVASTATIN 80 MG TAB PO SCH (20:55)
[2022-03-13 21:18] VITALS: O2SAT 95
== END 2022-03-13 21:13 | DRG 190 ==
LOC: ER 09:47 → ERHOLD 14:09 → 2ND 19:17 → 4TH 03-11 11:04
PROVIDERS: ADMIT Internal Medicine; ATTEND Internal Medicine
PROC: 5A09557 Assistance with Respiratory Ventilation, Greater than 96 Consecutive Hours, Continuous Positive Airway Pressure (ICD-10-PCS; principal; 2022-02-27)
DX: J44.1 Chronic obstructive pulmonary disease with (acute) exacerbation (principal); J96.01 Acute respiratory failure with hypoxia; I48.21 Permanent atrial fibrillation; E11.9 Type 2 diabetes mellitus without complications; E78.5 Hyperlipidemia, unspecified; I10 Essential (primary) hypertension; J84.10 Pulmonary fibrosis, unspecified; J10.1 Influenza due to other identified influenza virus with other respiratory manifestations; I95.9 Hypotension, unspecified; I27.20 Pulmonary hypertension, unspecified; G47.00 Insomnia, unspecified; E66.9 Obesity, unspecified; Z68.26 Body mass index [BMI] 26.0-26.9, adult; Z79.01 Long term (current) use of anticoagulants; Z79.84 Long term (current) use of oral hypoglycemic drugs; Z79.52 Long term (current) use of systemic steroids; Z79.899 Other long term (current) drug therapy; Z87.891 Personal history of nicotine dependence; Z20.822 Contact with and (suspected) exposure to COVID-19
CPT/HCPCS: 36415; 71045; 71275; 80048; 80061; 80076; 81001; 82805; 82947; 83735; 83880; 84100; 84484; 85025; 87040; 87804; 87811; 93005; 93306; 93971; 94002; 94003; 94640; 94660; 94760; 97110; 97161; 97530; 99285; J0456; J1650; J1815; J2920; J2930; J3475; J3535; J7050; J7512; J7605; Q9967